=== PATIENT | female | born 1995 | race Caucasian/White ===

== ENCOUNTER 2016-10-06 16:43 | Emergency (ER) | payer MEDICAID, OTHER ==
[~2016-10-06 16:43] MED LIST: ALBU17IN INH; CARV3.12 PO; CARV6.25 PO; DIGO0.12 PO; DIGO0.25 PO; ENAL5TAB PO; FERR325T3 PO; HYDR100T PO; ISOS1TAB13 PO; LASI20TA PO; POTA10CA PO; PROT1TAB2 PO; SPIR25TA2 PO; VITMTA PO; ZOFR20TA PO
[2016-10-06 17:41] LABS: INR 1.02
--- NOTE | 2016-10-06 17:48 | REP ---
Chest two views HISTORY: Shortness of breath Comparison: 12/16/2015 The lungs are clear. The heart is normal in size. The pulmonary vasculature is normal in appearance. The bony structure is intact. The the patient is status post sternotomy IMPRESSION: No acute disease. Signed by Rick Garcia MD 10/06/2016 05:40 P
[2016-10-06 17:49] LABS: ANION GAP 8 MEQ/L (8-16); BLOOD UREA NITROGEN 32 MG/DL (7-18); CALCIUM LEVEL 9.2 MG/DL (8.5-10.1); CARBON DIOXIDE LEVEL 25 MEQ/L (21-32); CHLORIDE LEVEL 111 MEQ/L (98-107); CREATININE FOR GFR 1.15 MG/DL (0.55-1.02); GLUCOSE, FASTING 114 MG/DL (70-105); POTASSIUM SERUM 3.6 MEQ/L (3.5-5.1); SODIUM LEVEL 144 MEQ/L (136-145)
[2016-10-06 18:10] LABS: BASO % 0.3 % (0.0-1.0); EOS # 0.1 K/mm3 (0.0-0.50); LARGE UNSTAINED CELL % 1.3 % (0.0-4.0); LYMPH # 0.7 K/mm3 (1.5-6.5); LYMPH % 23.1 % (24.0-44.0); MEAN CORPUSCULAR HGB CONC 32.5 g/dl (32.0-36.5); MEAN CORPUSCULAR VOLUME 89.3 fl (80.0-96.0); MONO # 0.2 K/mm3 (0.0-0.8); MONO % 6.3 % (0.0-5.0); NEUTROPHILS # 1.9 K/mm3 (1.8-7.7); NEUTROPHILS % 67.1 % (36.0-66.0); PLATELET COUNT, AUTOMATED 227 k/mm3 (150-450); RED CELL DISTRIBUTION WIDTH 16.5 % (11.5-14.5); WHITE BLOOD COUNT 2.8 K/mm3 (4.0-10.0)
--- NOTE | 2016-10-06 18:25 | ECGEPIP ---
Stationary ECG Study [facility] - ED Test Date: 2016-10-06 Pat Name: MAKAYLA ESTRADA Department: Room: - Gender: F Project Asst: andre : 1995 Requested By: KADE PEDERSEN Order Number: [id number] Reading MD: Lukasz Chaudhari Measurements Intervals Burden Rate: 108 P: 67 NM: 111 QRS: 19 QRSD: 86 T: 58 QT: 331 QTc: 445 Interpretive Statements SINUS TACHYCARDIA WITH SHORT NM INTERVAL Electronically Signed On 10-06-2016 18:25:17 EST by Lukasz Chaudhari
--- NOTE | 2016-10-06 18:26 | EDDOCDS ---
Nurse's Notes [facility] Name: Jessa Bran Age: 21 yrs Sex: Female : 1995 Arrival Date: 10/06/2016 Time: 16:43 Bed 4 Private MD: Rick Aguilar W Diagnosis: Acute bronchitis Presentation: 10/06 16:49 Presenting complaint: Patient states: Chest pain and SOB began at 0700 this am. Aspirin mlb1 was not taken prior to arrival. Adult Sepsis Screening: The patient does not have new or worsening altered mentation. Patient's respiratory rate is less than 22. Systolic blood pressure is greater than 100. Patient has a qSOFA score of 0- Negative Sepsis Screen. Suicide/Homicide risk assessment- the patient denies having any suicidal and/or homicidal ideations and does not present with any other emotional, behavioral or mental health complaints. Status: Patient is not a data services developer or dependent. Transition of care: patient was not received from another setting of care. 16:49 Acuity: GAURANG Level 2 mlb1 16:49 Method Of Arrival: Walkin/Carried/Asstd mlb1 Triage Assessment: 16:55 General: Appears in no apparent distress, Behavior is cooperative. Pain: Location: mlb1 mid-sternal area Pain currently is 7 out of 10 on a pain scale. Pt Declines HIV testing. PROTECTION OFFICER: 16:56 LMP N/A - control method mlb1 Historical: - Allergies: no known allergies; - Home Meds: 1. Zofran (as hydrochloride) 4 mg Oral tab four times a day 2. mycophenolate mofetil 250 mg oral cap 1 caps 2 times per day 3. tacrolimus 1 mg oral cap 4 cap every 12 hours 4. valganciclovir 450 mg oral tab 1 tabs once daily 5. prednisone 5 mg Oral tab 1 tab 2 times per day 6. Zantac 75 mg Oral 2 times per day 7. magnesium oxide 400 mg oral tab as needed 8. ferrous sulfate 325 mg (65 mg iron) Oral TbEC twice a day - PMHx: Anemia; Cardiomyopathy; congestive heart failure; GERD; machado parkinson white disease; - PSHx: ICD placement; Heart Transplant; - Social history: Smoking status: Patient states was never smoker of tobacco. No barriers to communication noted, The patient speaks fluent Maori, Speaks appropriately for age. - Family history: Not pertinent. - : The pt / caregiver states he / she is not on anticoagulants. Home medication list is obtained from the patient. - Exposure Risk Screening:: None identified. Screenin:21 Screening information is obtained from the patient. Fall risk: No risks identified. jo3 Assistance ADL's: requires no assistance with activities of daily living. Abuse/DV Screen: The patient / caregiver reports he/she is: not in a situation that causes fear, pain or injury. Nutritional screening: No deficits noted. Advance Directives: There is no active DNR order. home support is adequate. Assessment: 17:15 General: Appears in no apparent distress, comfortable, Behavior is appropriate for age, jo3 cooperative, pleasant. Neurological: Level of Consciousness is awake, alert, Oriented to person, place, time. Cardiovascular: Rhythm is sinus rhythm No ectopy. Chest pain burning sensation to mid chest upon coughing . Respiratory: Airway is patent Respiratory effort is even, unlabored, Breath sounds are clear bilaterally. Derm: Skin is pink, warm & dry. 18:20 General: Appears in no apparent distress, comfortable, Behavior is appropriate for age, jo3 cooperative, pleasant. Neurological: No deficits noted. Level of Consciousness is awake, alert, Oriented to person, place, time. Cardiovascular: Rhythm is sinus rhythm No ectopy. Respiratory: Airway is patent Respiratory effort is even, unlabored. Derm: Skin is pink, warm & dry. Vital Signs: 16:44 BP 123 / 74; Pulse 120; Resp 18 S; Temp 99.1(O); Pulse Ox 99% on R/A; Weight 44.45 kg gr2 (R); Height 5 ft. 2 in. (157.48 cm) (R); Pain 8/10; 17:11 BP 116 / 81 (auto/); jo3 17:11 Pulse 108 MON; Pulse Ox 98% ; jo3 17:26 BP 116 / 81 (auto/); jo3 17:26 Pulse 106 MON; Pulse Ox 98% ; jo3 17:41 BP 111 / 74 (auto/); jo3 17:41 Pulse 102 MON; Pulse Ox 98% ; jo3 17:56 BP 110 / 71 (auto/); jo3 17:56 Pulse 102 MON; Pulse Ox 98% ; jo3 18:11 BP 114 / 73 (auto/); jo3 18:11 Pulse 100 MON; Resp 18; Temp 99.5(O); Pulse Ox 98% ; jo3 16:44 Body Mass Index 17.92 (44.45 kg, 157.48 cm) gr2 Vitals: 16:44 Log In Time: October 06, 2016 at 16:44. RN notified that patient meets Red Flag gr2 criteria. ED Course: 16:44 Patient visited by Shikha Barrios. gr2 16:44 Rick Aguilar is Private Physician. gr2 16:44 Patient moved to Waiting gr2 16:47 Patient visited by Shikha Barrios. gr2 16:48 Patient moved to 4 mlb1 16:49 Triage Initiated mlb1 16:56 Patient visited by Carlos Manuel Hawkins RN. mlb1 17:00 sanitary aide on. Pulse ox on. NIBP on. jo3 17:00 Inserted saline lock: 18 gauge in right antecubital area. Labs drawn. (by ED staff). jo3 Sent per order to lab. 17:12 Gerard Richmond FNP is [facility]. ke 17:12 Patient visited by Gerard Richmond FNP. ke 17:12 Patient visited by Gerard Richmond FNP. ke 17:42 Patient visited by Gerard Richmond FNP. ke 17:42 [place] Payment Agreement was scanned into [employer] and attached to record. gb 17:52 EKG done. (by ED staff). lr2 17:59 Rick Aguilar is Referral Physician. ke 18:16 Chest, 2 View (pa\E\lat) Returned. EDMS 18:21 The patient / caregiver is instructed regarding the plan of care and ED course. jo3 18:22 No procedures done that require assistance. jo3 Order Results: Lab Order: B-Type Natiuretic Peptide; SPEC'M 10/06/16 17:08 Test: BRAIN NATRIURETIC PEPTIDE; Value: 12.8; Range: <100; Units: PG/ML; Status: F Lab Order: Basic Metabolic Profile; SPEC'M 10/06/16 17:08 Test: GLUCOSE, FASTING; Value: 114; Range: 70-105; Abnormal: Above high normal; Units: MG/DL; Status: F Test: BLOOD UREA NITROGEN; Value: 32; Range: 7-18; Abnormal: Above high normal; Units: MG/DL; Status: F Test: CREATININE FOR GFR; Value: 1.15; Range: 0.55-1.02; Abnormal: Above high normal; Units: MG/DL; Status: F Test: SODIUM LEVEL; Value: 144; Range: 136-145; Units: MEQ/L; Status: F Test: POTASSIUM SERUM; Value: 3.6; Range: 3.5-5.1; Units: MEQ/L; Status: F Test: CHLORIDE LEVEL; Value: 111; Range: 98-107; Abnormal: Above high normal; Units: MEQ/L; Status: F Test: CARBON DIOXIDE LEVEL; Value: 25; Range: 21-32; Units: MEQ/L; Status: F Test: ANION GAP; Value: 8; Range: 8-16; Units: MEQ/L; Status: F Test: CALCIUM LEVEL; Value: 9.2; Range: 8.5-10.1; Units: MG/DL; Status: F Lab Order: CBC with Diff; SPEC'M 10/06/16 17:08 Test: WHITE BLOOD COUNT; Value: 2.8; Range: 4.0-10.0; Abnormal: Below low normal; Units: K/mm3; Status: F Test: RED BLOOD COUNT; Value: 3.38; Range: 4.00-5.40; Abnormal: Below low normal; Units: M/mm3; Status: F Test: HEMOGLOBIN; Value: 9.8; Range: 12.0-16.0; Abnormal: Below low normal; Units: g/dl; Status: F Test: HEMATOCRIT; Value: 30.2; Range: 36.0-47.0; Abnormal: Below low normal; Units: %; Status: F Test: MEAN CORPUSCULAR VOLUME; Value: 89.3; Range: 80.0-96.0; Units: fl; Status: F Test: MEAN CORPUSCULAR HEMOGLOBIN; Value: 29.0; Range: 27.0-33.0; Units: pg; Status: F Test: MEAN CORPUSCULAR HGB CONC; Value: 32.5; Range: 32.0-36.5; Units: g/dl; Status: F Test: RED CELL DISTRIBUTION WIDTH; Value: 16.5; Range: 11.5-14.5; Abnormal: Above high normal; Units: %; Status: F Test: PLATELET COUNT, AUTOMATED; Value: 227; Range: 150-450; Units: k/mm3; Status: F Test: NEUTROPHILS %; Value: 67.1; Range: 36.0-66.0; Abnormal: Above high normal; Units: %; Status: F Test: LYMPH %; Value: 23.1; Range: 24.0-44.0; Abnormal: Below low normal; Units: %; Status: F Test: MONO %; Value: 6.3; Range: 0.0-5.0; Abnormal: Above high normal; Units: %; Status: F Test: EOS %; Value: 2.0; Range: 0.0-3.0; Units: %; Status: F Test: BASO %; Value: 0.3; Range: 0.0-1.0; Units: %; Status: F Test: LARGE UNSTAINED CELL %; Value: 1.3; Range: 0.0-4.0; Units: %; Status: F Test: NEUTROPHILS #; Value: 1.9; Range: 1.8-7.7; Units: K/mm3; Status: F Test: LYMPH #; Value: 0.7; Range: 1.5-6.5; Abnormal: Below low normal; Units: K/mm3; Status: F Test: MONO #; Value: 0.2; Range: 0.0-0.8; Units: K/mm3; Status: F Test: EOS #; Value: 0.1; Range: 0.0-0.50; Units: K/mm3; Status: F Test: BASO #; Value: 0.0; Range: 0.0-0.2; Units: K/mm3; Status: F Test: LARGE UNSTAINED CELL #; Value: 0.0; Range: 0.0-0.4; Units: K/mm3; Status: F Lab Order: Cardiac Injury Profile; SPEC'M 10/06/16 17:08 Test: CPK CREATINE PHOSPHOKINASE; Value: 29; Range: 26-192; Units: U/L; Status: F Test: CK-MB VALUE MASS; Value: 1.0; Range: 0.0-3.6; Units: NG/ML; Status: F Test: MB/CK RELATIVE INDEX; Value: 3.44; Range: < OR =4; Status: F Test Note: ; DIAGNOSIS CRITERIA MMB ng/ml Relative Index (RI) NON-AMI < or = 5 N/A HOU ZONE > 5 < or = 4 AMI > 5 > 4 Lab Order: Prothrombin Time Profile\E\INR; SPEC'M 10/06/16 17:08 Test: PROTHROMBIN TIME; Value: 13.5; Range: 12.3-14.5; Units: SECONDS; Status: F Test: INR; Value: 1.02; Status: F Test Note: ; THERAPUTIC HUMAN INR VALUES INDICATIONS NORMAL RANGES PROPHYLAXIS/TREATMENT OF: VENOUS THROMBOSIS 2.0-3.0 PULMONARY EMBOLISM 2.0-3.0 PREVENTION OF SYSTEMIC EMBOLISM FROM: TISSUE HEART VALVES 2.0-3.0 ACUTE MYOCARDIAL INFARCTION 2.0-3.0 VALVULAR HEART DISEASE 2.0-3.0 ATRIAL FIBRILLATION 2.0-3.0 MECHANICAL VALVES(HIGH RISK) 2.5-3.5 RECURRENT MYOCARDIAL INFARCTION 2.5-3.5 Lab Order: Troponin; SPEC'M 10/06/16 17:08 Test: TROPONIN I; Value: < 0.02; Range: < 0.10; Units: NG/ML; Status: F Test Note: ; Troponin I Reference Interval for [employer] LOCI: 99th Percentile= 0.00-0.045 ng/ml Risk Stratification: <= 0.10 ng/ml Decreased Risk for Adverse Clinical Events. 0.10-1.50 ng/ml Increased Risk for Adverse Clinical Events. Evaluation of additional criterion and/or repeat testing in 2-6 hours is suggested to rule out myocardial damage. >= 1.50 ng/ml Indicative of Myocardial Injury. Radiology Order: Chest, 2 View (pa\E\lat) Test: Chest, 2 View (pa\E\lat) REASON FOR EXAMINATION: Shortness of Breath; Chest two views; ; HISTORY: Shortness of breath; ; Comparison: 12/16/2015; ; The lungs are clear. The heart is normal in size. The pulmonary vasculature is; normal in appearance. The bony structure is intact. The the patient is status; post sternotomy; ; IMPRESSION: No acute disease.; ; ; Signed by; Rick Garcia MD 10/06/2016 05:40 P; Outcome: 18:00 Discharge ordered by Provider. vick 18:22 Discharge Assessment: Patient awake, alert and oriented x 3. No cognitive and/or jo3 functional deficits noted. Patient verbalized understanding of disposition instructions. patient administered narcotics - no. The following High Risk Discharge criteria are identified: None. Discharged to home ambulatory, with family. Condition: stable Condition: improved. Discharge instructions given to patient, Instructed on discharge instructions, follow up and referral plans. medication usage, Demonstrated understanding of instructions, medications, Pt was receptive of discharge instructions/ teaching. Prescriptions given X 2. No special radiology studies were completed. Property sent home with patient. 18:24 Patient left the ED. jo3 Signatures: Dispatcher [employer] EDMS Sharifa Wright, Reg Reg Gerard Jackson, DESIGN RELEASE ENGINEER DESIGN RELEASE ENGINEER Carlos Manuel Perez, RN RN mlb1 Linda Su RN RN jo3 Shikha Barrios gr2 Bella Feliciano lr2 LILIBETH
--- NOTE | 2016-10-06 18:26 | EDDOCDS ---
Physician Documentation [facility] Name: Jessa Bran Age: 21 yrs Sex: Female : 1995 Arrival Date: 10/06/2016 Time: 16:43 Bed 4 Private MD: Rick Aguilar W Disposition: 10/06/16 18:00 Discharged to Home/Self Care. Impression: Acute bronchitis. - Condition is Stable. - Discharge Instructions: Acute Bronchitis. - Prescriptions for cefdinir 300 mg Oral Capsule - take 1 capsule by ORAL route every 12 hours; 20 capsule. Albuterol Sulfate 90 mcg/actuation Inhalation HFA Aerosol Inhaler - inhale 2 puff by INHALATION route every 4 hours As needed; 1 Inhaler. - Medication Reconciliation, Local Pharmacy Hours form. - Follow up: Rick Aguilar; When: 4 - 5 days; Reason: Recheck today's complaints, Continuance of care. - Problem is an ongoing problem. - Symptoms are unchanged. Historical: - Allergies: no known allergies; - Home Meds: 1. Zofran (as hydrochloride) 4 mg Oral tab four times a day 2. mycophenolate mofetil 250 mg oral cap 1 caps 2 times per day 3. tacrolimus 1 mg oral cap 4 cap every 12 hours 4. valganciclovir 450 mg oral tab 1 tabs once daily 5. prednisone 5 mg Oral tab 1 tab 2 times per day 6. Zantac 75 mg Oral 2 times per day 7. magnesium oxide 400 mg oral tab as needed 8. ferrous sulfate 325 mg (65 mg iron) Oral TbEC twice a day - PMHx: Anemia; Cardiomyopathy; congestive heart failure; GERD; machado parkinson white disease; - PSHx: ICD placement; Heart Transplant; - Social history: Smoking status: Patient states was never smoker of tobacco. No barriers to communication noted, The patient speaks fluent Palauan, Speaks appropriately for age. - Family history: Not pertinent. - : The pt / caregiver states he / she is not on anticoagulants. Home medication list is obtained from the patient. - Exposure Risk Screening:: None identified. DIRECTOR COMPENSATION: 10/06 16:56 LMP N/A - control method mlb1 Vital Signs: 16:44 BP 123 / 74; Pulse 120; Resp 18 S; Temp 99.1(O); Pulse Ox 99% on R/A; Weight 44.45 kg / gr2 98 lbs (R); Height 5 ft. 2 in. (157.48 cm) (R); Pain 8/10; 17:11 BP 116 / 81 (auto/); jo3 17:11 Pulse 108 MON; Pulse Ox 98% ; jo3 17:26 BP 116 / 81 (auto/); jo3 17:26 Pulse 106 MON; Pulse Ox 98% ; jo3 17:41 BP 111 / 74 (auto/); jo3 17:41 Pulse 102 MON; Pulse Ox 98% ; jo3 17:56 BP 110 / 71 (auto/); jo3 17:56 Pulse 102 MON; Pulse Ox 98% ; jo3 18:11 BP 114 / 73 (auto/); jo3 18:11 Pulse 100 MON; Resp 18; Temp 99.5(O); Pulse Ox 98% ; jo3 16:44 Body Mass Index 17.92 (44.45 kg, 157.48 cm) gr2 MDM: 17:18 Drop Board Man/Pulse Ox/q 30 min VS ordered. ke 17:18 IV Saline Lock ordered. ke 17:18 Rhythm Strip to chart ordered. ke 17:18 Undress patient appropriately for examination ordered. ke 17:19 B-Type Natiuretic Peptide Ordered. EDMS 17:19 Basic Metabolic Profile Ordered. EDMS 17:19 CBC with Diff Ordered. EDMS 17:19 Cardiac Injury Profile Ordered. EDMS 17:19 Prothrombin Time Profile\E\INR Ordered. EDMS 17:19 Troponin Ordered. EDMS 17:19 Chest, 2 View (pa\E\lat) Ordered. EDMS 17:19 ECG WITH READING ER PHYS+CARDIAG ordered. EDMS 17:29 Financial registration complete. gb 17:42 [facility] Payment Agreement was scanned into [employer] and attached to record. gb 17:53 Basic Metabolic Profile Reviewed. ke 17:53 B-Type Natiuretic Peptide Reviewed. ke 17:53 Cardiac Injury Profile Reviewed. ke 17:53 Prothrombin Time Profile\E\INR Reviewed. ke 17:53 Troponin Reviewed. ke Signatures: Dispatcher [employer] EDMS Sharifa Wright, Reg Reg gb Gerard Richmond, BRASS CUTTER BRASS CUTTER Carlos Manuel Perez RN RN mlb1 Linda SuRN RN jo3 The chart was reviewed and I authenticate all verbal orders and agree with the evaluation and treatment provided.Attachments: 17:42 [facility] Payment Agreement gb MTDD
--- NOTE | 2016-10-08 19:25 | EDDOCDS ---
Physician Documentation [facility] Name: Jessa Bran Age: 21 yrs Sex: Female : 1995 Arrival Date: 10/06/2016 Time: 16:43 Bed 4 Private MD: Rick Aguilar W Disposition: 10/06/16 18:00 Discharged to Home/Self Care. Impression: Acute bronchitis. - Condition is Stable. - Discharge Instructions: Acute Bronchitis. - Prescriptions for cefdinir 300 mg Oral Capsule - take 1 capsule by ORAL route every 12 hours; 20 capsule. Albuterol Sulfate 90 mcg/actuation Inhalation HFA Aerosol Inhaler - inhale 2 puff by INHALATION route every 4 hours As needed; 1 Inhaler. - Medication Reconciliation, Local Pharmacy Hours form. - Follow up: Rick Aguilar; When: 4 - 5 days; Reason: Recheck today's complaints, Continuance of care. - Problem is an ongoing problem. - Symptoms are unchanged. Historical: - Allergies: no known allergies; - Home Meds: 1. Zofran (as hydrochloride) 4 mg Oral tab four times a day 2. mycophenolate mofetil 250 mg oral cap 1 caps 2 times per day 3. tacrolimus 1 mg oral cap 4 cap every 12 hours 4. valganciclovir 450 mg oral tab 1 tabs once daily 5. prednisone 5 mg Oral tab 1 tab 2 times per day 6. Zantac 75 mg Oral 2 times per day 7. magnesium oxide 400 mg oral tab as needed 8. ferrous sulfate 325 mg (65 mg iron) Oral TbEC twice a day - PMHx: Anemia; Cardiomyopathy; congestive heart failure; GERD; machado parkinson white disease; - PSHx: ICD placement; Heart Transplant; - Social history: Smoking status: Patient states was never smoker of tobacco. No barriers to communication noted, The patient speaks fluent Gibraltarian, Speaks appropriately for age. - Family history: Not pertinent. - : The pt / caregiver states he / she is not on anticoagulants. Home medication list is obtained from the patient. - Exposure Risk Screening:: None identified. TOOL CRIB CLERK: 10/06 16:56 LMP N/A - control method mlb1 Vital Signs: 16:44 BP 123 / 74; Pulse 120; Resp 18 S; Temp 99.1(O); Pulse Ox 99% on R/A; Weight 44.45 kg / gr2 98 lbs (R); Height 5 ft. 2 in. (157.48 cm) (R); Pain 8/10; 17:11 BP 116 / 81 (auto/); jo3 17:11 Pulse 108 MON; Pulse Ox 98% ; jo3 17:26 BP 116 / 81 (auto/); jo3 17:26 Pulse 106 MON; Pulse Ox 98% ; jo3 17:41 BP 111 / 74 (auto/); jo3 17:41 Pulse 102 MON; Pulse Ox 98% ; jo3 17:56 BP 110 / 71 (auto/); jo3 17:56 Pulse 102 MON; Pulse Ox 98% ; jo3 18:11 BP 114 / 73 (auto/); jo3 18:11 Pulse 100 MON; Resp 18; Temp 99.5(O); Pulse Ox 98% ; jo3 16:44 Body Mass Index 17.92 (44.45 kg, 157.48 cm) gr2 MDM: 17:18 Dental Hygiene Administrative Assistant/Pulse Ox/q 30 min VS ordered. ke 17:18 IV Saline Lock ordered. ke 17:18 Rhythm Strip to chart ordered. ke 17:18 Undress patient appropriately for examination ordered. ke 17:19 B-Type Natiuretic Peptide Ordered. EDMS 17:19 Basic Metabolic Profile Ordered. EDMS 17:19 CBC with Diff Ordered. EDMS 17:19 Cardiac Injury Profile Ordered. EDMS 17:19 Prothrombin Time Profile\E\INR Ordered. EDMS 17:19 Troponin Ordered. EDMS 17:19 Chest, 2 View (pa\E\lat) Ordered. EDMS 17:19 ECG WITH READING ER PHYS+CARDIAG ordered. EDMS 17:29 Financial registration complete. gb 17:42 [facility] Payment Agreement was scanned into [employer] and attached to record. gb 17:53 Basic Metabolic Profile Reviewed. ke 17:53 B-Type Natiuretic Peptide Reviewed. ke 17:53 Cardiac Injury Profile Reviewed. ke 17:53 Prothrombin Time Profile\E\INR Reviewed. ke 17:53 Troponin Reviewed. vick 10/07 12:12 T-Sheet-- Draft Copy was scanned into [employer] and attached to record. gb 12:12 ECG/EKG was scanned into [employer] and attached to record. gb Signatures: Dispatcher [employer] EDMS Sharifa Wright, Reg Reg gb Gerard Richmond, SPINNING AND WINDING SUPERVISOR SPINNING AND WINDING SUPERVISOR Carlos Manuel Perez RN RN mlb1 Linda SuRN RN jo3 The chart was reviewed and I authenticate all verbal orders and agree with the evaluation and treatment provided.Attachments: 10/06 17:42 [facility] Payment Agreement gb 10/07 12:12 T-Sheet-- Draft Copy gb 12:12 ECG/EKG gb Chart Complete MTDD
--- NOTE | 2016-10-08 19:25 | EDDOCDS ---
Nurse's Notes [facility] Name: Jessa Bran Age: 21 yrs Sex: Female : 1995 Arrival Date: 10/06/2016 Time: 16:43 Bed 4 Private MD: Rick Aguilar W Diagnosis: Acute bronchitis Presentation: 10/06 16:49 Presenting complaint: Patient states: Chest pain and SOB began at 0700 this am. Aspirin mlb1 was not taken prior to arrival. Adult Sepsis Screening: The patient does not have new or worsening altered mentation. Patient's respiratory rate is less than 22. Systolic blood pressure is greater than 100. Patient has a qSOFA score of 0- Negative Sepsis Screen. Suicide/Homicide risk assessment- the patient denies having any suicidal and/or homicidal ideations and does not present with any other emotional, behavioral or mental health complaints. Status: Patient is not a center customer service associate or dependent. Transition of care: patient was not received from another setting of care. 16:49 Acuity: GAURANG Level 2 mlb1 16:49 Method Of Arrival: Walkin/Carried/Asstd mlb1 Triage Assessment: 16:55 General: Appears in no apparent distress, Behavior is cooperative. Pain: Location: mlb1 mid-sternal area Pain currently is 7 out of 10 on a pain scale. Pt Declines HIV testing. 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 Zofran (as hydrochloride) 4 mg Oral tab four times a day 2. mycophenolate mofetil 250 mg oral cap 1 caps 2 times per day 3. tacrolimus 1 mg oral cap 4 cap every 12 hours 4. valganciclovir 450 mg oral tab 1 tabs once daily 5. prednisone 5 mg Oral tab 1 tab 2 times per day 6. Zantac 75 mg Oral 2 times per day 7. magnesium oxide 400 mg oral tab as needed 8. ferrous sulfate 325 mg (65 mg iron) Oral TbEC twice a day - PMHx: Anemia; Cardiomyopathy; congestive heart failure; GERD; machado parkinson white disease; - PSHx: ICD placement; Heart Transplant; - Social history: Smoking status: Patient states was never smoker of tobacco. No barriers to communication noted, The patient speaks fluent Estonian, Speaks appropriately for age. - Family history: Not pertinent. - : The pt / caregiver states he / she is not on anticoagulants. Home medication list is obtained from the patient. - Exposure Risk Screening:: None identified. Screenin:21 Screening information is obtained from the patient. Fall risk: No risks identified. jo3 Assistance ADL's: requires no assistance with activities of daily living. Abuse/DV Screen: The patient / caregiver reports he/she is: not in a situation that causes fear, pain or injury. Nutritional screening: No deficits noted. Advance Directives: There is no active DNR order. home support is adequate. Assessment: 17:15 General: Appears in no apparent distress, comfortable, Behavior is appropriate for age, jo3 cooperative, pleasant. Neurological: Level of Consciousness is awake, alert, Oriented to person, place, time. Cardiovascular: Rhythm is sinus rhythm No ectopy. Chest pain burning sensation to mid chest upon coughing . Respiratory: Airway is patent Respiratory effort is even, unlabored, Breath sounds are clear bilaterally. Derm: Skin is pink, warm & dry. 18:20 General: Appears in no apparent distress, comfortable, Behavior is appropriate for age, jo3 cooperative, pleasant. Neurological: No deficits noted. Level of Consciousness is awake, alert, Oriented to person, place, time. Cardiovascular: Rhythm is sinus rhythm No ectopy. Respiratory: Airway is patent Respiratory effort is even, unlabored. Derm: Skin is pink, warm & dry. Vital Signs: 16:44 BP 123 / 74; Pulse 120; Resp 18 S; Temp 99.1(O); Pulse Ox 99% on R/A; Weight 44.45 kg gr2 (R); Height 5 ft. 2 in. (157.48 cm) (R); Pain 8/10; 17:11 BP 116 / 81 (auto/); jo3 17:11 Pulse 108 MON; Pulse Ox 98% ; jo3 17:26 BP 116 / 81 (auto/); jo3 17:26 Pulse 106 MON; Pulse Ox 98% ; jo3 17:41 BP 111 / 74 (auto/); jo3 17:41 Pulse 102 MON; Pulse Ox 98% ; jo3 17:56 BP 110 / 71 (auto/); jo3 17:56 Pulse 102 MON; Pulse Ox 98% ; jo3 18:11 BP 114 / 73 (auto/); jo3 18:11 Pulse 100 MON; Resp 18; Temp 99.5(O); Pulse Ox 98% ; jo3 16:44 Body Mass Index 17.92 (44.45 kg, 157.48 cm) gr2 Vitals: 16:44 Log In Time: October 06, 2016 at 16:44. RN notified that patient meets Red Flag gr2 criteria. ED Course: 16:44 Patient visited by Shikha Barrios. gr2 16:44 Rick Aguilar is Private Physician. gr2 16:44 Patient moved to Waiting gr2 16:47 Patient visited by Shikha Barrios. gr2 16:48 Patient moved to 4 mlb1 16:49 Triage Initiated mlb1 16:56 Patient visited by Carlos Manuel Hawkins RN. mlb1 17:00 perennial house manager on. Pulse ox on. NIBP on. jo3 17:00 Inserted saline lock: 18 gauge in right antecubital area. Labs drawn. (by ED staff). jo3 Sent per order to lab. 17:12 [facility] ke 17:12 Patient visited by Gerard Richmond FNP. ke 17:12 Patient visited by Gerard Richmond FNP. ke 17:42 Patient visited by Gerard Richmond FNP. ke 17:42 [facility] Payment Agreement was scanned into [employer] and attached to record. gb 17:52 EKG done. (by ED staff). lr2 17:59 Rick Aguilar is Referral Physician. ke 18:16 Chest, 2 View (pa\E\lat) Returned. EDMS 18:21 The patient / caregiver is instructed regarding the plan of care and ED course. jo3 18:22 No procedures done that require assistance. jo3 19:02 EKG-ADULT Returned. EDMS 10/07 12:12 T-Sheet-- Draft Copy was scanned into [employer] and attached to record. gb 12:12 ECG/EKG was scanned into [employer] and attached to record. gb Order Results: Lab Order: B-Type Natiuretic Peptide; SPEC'M 10/06/16 17:08 Test: BRAIN NATRIURETIC PEPTIDE; Value: 12.8; Range: <100; Units: PG/ML; Status: F Lab Order: Basic Metabolic Profile; SPEC'M 10/06/16 17:08 Test: GLUCOSE, FASTING; Value: 114; Range: 70-105; Abnormal: Above high normal; Units: MG/DL; Status: F Test: BLOOD UREA NITROGEN; Value: 32; Range: 7-18; Abnormal: Above high normal; Units: MG/DL; Status: F Test: CREATININE FOR GFR; Value: 1.15; Range: 0.55-1.02; Abnormal: Above high normal; Units: MG/DL; Status: F Test: SODIUM LEVEL; Value: 144; Range: 136-145; Units: MEQ/L; Status: F Test: POTASSIUM SERUM; Value: 3.6; Range: 3.5-5.1; Units: MEQ/L; Status: F Test: CHLORIDE LEVEL; Value: 111; Range: 98-107; Abnormal: Above high normal; Units: MEQ/L; Status: F Test: CARBON DIOXIDE LEVEL; Value: 25; Range: 21-32; Units: MEQ/L; Status: F Test: ANION GAP; Value: 8; Range: 8-16; Units: MEQ/L; Status: F Test: CALCIUM LEVEL; Value: 9.2; Range: 8.5-10.1; Units: MG/DL; Status: F Lab Order: CBC with Diff; SPEC'M 10/06/16 17:08 Test: WHITE BLOOD COUNT; Value: 2.8; Range: 4.0-10.0; Abnormal: Below low normal; Units: K/mm3; Status: F Test: RED BLOOD COUNT; Value: 3.38; Range: 4.00-5.40; Abnormal: Below low normal; Units: M/mm3; Status: F Test: HEMOGLOBIN; Value: 9.8; Range: 12.0-16.0; Abnormal: Below low normal; Units: g/dl; Status: F Test: HEMATOCRIT; Value: 30.2; Range: 36.0-47.0; Abnormal: Below low normal; Units: %; Status: F Test: MEAN CORPUSCULAR VOLUME; Value: 89.3; Range: 80.0-96.0; Units: fl; Status: F Test: MEAN CORPUSCULAR HEMOGLOBIN; Value: 29.0; Range: 27.0-33.0; Units: pg; Status: F Test: MEAN CORPUSCULAR HGB CONC; Value: 32.5; Range: 32.0-36.5; Units: g/dl; Status: F Test: RED CELL DISTRIBUTION WIDTH; Value: 16.5; Range: 11.5-14.5; Abnormal: Above high normal; Units: %; Status: F Test: PLATELET COUNT, AUTOMATED; Value: 227; Range: 150-450; Units: k/mm3; Status: F Test: NEUTROPHILS %; Value: 67.1; Range: 36.0-66.0; Abnormal: Above high normal; Units: %; Status: F Test: LYMPH %; Value: 23.1; Range: 24.0-44.0; Abnormal: Below low normal; Units: %; Status: F Test: MONO %; Value: 6.3; Range: 0.0-5.0; Abnormal: Above high normal; Units: %; Status: F Test: EOS %; Value: 2.0; Range: 0.0-3.0; Units: %; Status: F Test: BASO %; Value: 0.3; Range: 0.0-1.0; Units: %; Status: F Test: LARGE UNSTAINED CELL %; Value: 1.3; Range: 0.0-4.0; Units: %; Status: F Test: NEUTROPHILS #; Value: 1.9; Range: 1.8-7.7; Units: K/mm3; Status: F Test: LYMPH #; Value: 0.7; Range: 1.5-6.5; Abnormal: Below low normal; Units: K/mm3; Status: F Test: MONO #; Value: 0.2; Range: 0.0-0.8; Units: K/mm3; Status: F Test: EOS #; Value: 0.1; Range: 0.0-0.50; Units: K/mm3; Status: F Test: BASO #; Value: 0.0; Range: 0.0-0.2; Units: K/mm3; Status: F Test: LARGE UNSTAINED CELL #; Value: 0.0; Range: 0.0-0.4; Units: K/mm3; Status: F Lab Order: Cardiac Injury Profile; SPEC'M 10/06/16 17:08 Test: CPK CREATINE PHOSPHOKINASE; Value: 29; Range: 26-192; Units: U/L; Status: F Test: CK-MB VALUE MASS; Value: 1.0; Range: 0.0-3.6; Units: NG/ML; Status: F Test: MB/CK RELATIVE INDEX; Value: 3.44; Range: < OR =4; Status: F Test Note: ; DIAGNOSIS CRITERIA MMB ng/ml Relative Index (RI) NON-AMI < or = 5 N/A HOU ZONE > 5 < or = 4 AMI > 5 > 4 Lab Order: Prothrombin Time Profile\E\INR; SPEC'M 10/06/16 17:08 Test: PROTHROMBIN TIME; Value: 13.5; Range: 12.3-14.5; Units: SECONDS; Status: F Test: INR; Value: 1.02; Status: F Test Note: ; THERAPUTIC HUMAN INR VALUES INDICATIONS NORMAL RANGES PROPHYLAXIS/TREATMENT OF: VENOUS THROMBOSIS 2.0-3.0 PULMONARY EMBOLISM 2.0-3.0 PREVENTION OF SYSTEMIC EMBOLISM FROM: TISSUE HEART VALVES 2.0-3.0 ACUTE MYOCARDIAL INFARCTION 2.0-3.0 VALVULAR HEART DISEASE 2.0-3.0 ATRIAL FIBRILLATION 2.0-3.0 MECHANICAL VALVES(HIGH RISK) 2.5-3.5 RECURRENT MYOCARDIAL INFARCTION 2.5-3.5 Lab Order: Troponin; SPEC'M 10/06/16 17:08 Test: TROPONIN I; Value: < 0.02; Range: < 0.10; Units: NG/ML; Status: F Test Note: ; Troponin I Reference Interval for [email or web address] LOCI: 99th Percentile= 0.00-0.045 ng/ml Risk Stratification: <= 0.10 ng/ml Decreased Risk for Adverse Clinical Events. 0.10-1.50 ng/ml Increased Risk for Adverse Clinical Events. Evaluation of additional criterion and/or repeat testing in 2-6 hours is suggested to rule out myocardial damage. >= 1.50 ng/ml Indicative of Myocardial Injury. Radiology Order: Chest, 2 View (pa\E\lat) Test: Chest, 2 View (pa\E\lat) REASON FOR EXAMINATION: Shortness of Breath; Chest two views; ; HISTORY: Shortness of breath; ; Comparison: 12/16/2015; ; The lungs are clear. The heart is normal in size. The pulmonary vasculature is; normal in appearance. The bony structure is intact. The the patient is status; post sternotomy; ; IMPRESSION: No acute disease.; ; ; Signed by; Rick Garcia MD 10/06/2016 05:40 P; Radiology Order: EKG-ADULT Test: EKG-ADULT REASON FOR EXAMINATION: Chest Pain; Stationary ECG Study; [facility] - ED; ; Test Date: 2016-10-06; Pat Name: JESSA BRAN Department:; Room: -; Gender: F Mobile Paramedical Examiner: andre; : 1995 Requested By: GERARD PEDERSEN; Order Number: [id number] Reading MD: Lukasz Chaudhari; Measurements; Intervals Varney; Rate: 108 P: 67; NJ: 111 QRS: 19; QRSD: 86 T: 58; QT: 331; QTc: 445; Interpretive Statements; SINUS TACHYCARDIA WITH SHORT [place] INTERVAL; ; Electronically Signed On 10-06-2016 18:25:17 EST by Lukasz Chaudhari; Outcome: 10/06 18:00 Discharge ordered by Provider. ke 18:22 Discharge Assessment: Patient awake, alert and oriented x 3. No cognitive and/or jo3 functional deficits noted. Patient verbalized understanding of disposition instructions. patient administered narcotics - no. The following High Risk Discharge criteria are identified: None. Discharged to home ambulatory, with family. Condition: stable Condition: improved. Discharge instructions given to patient, Instructed on discharge instructions, follow up and referral plans. medication usage, Demonstrated understanding of instructions, medications, Pt was receptive of discharge instructions/ teaching. Prescriptions given X 2. No special radiology studies were completed. Property sent home with patient. 18:24 Patient left the ED. jo3 Signatures: Dispatcher [employer] EDMS Sharifa Wright, Reg Reg Gerard Jackson FNP FNP ke Barney, Michael B, RN RN mlb1 Linda Su RN RN jo3 Shikha Barrios2 Bella Feliciano2 Chart Complete MTDD
--- NOTE | 2016-10-08 19:25 | EDDOCDS ---
Physician Documentation [facility] Name: Jessa Bran Age: 21 yrs Sex: Female : 1995 Arrival Date: 10/06/2016 Time: 16:43 Bed 4 Private MD: Rick Aguilar W Disposition: 10/06/16 18:00 Discharged to Home/Self Care. Impression: Acute bronchitis. - Condition is Stable. - Discharge Instructions: Acute Bronchitis. - Prescriptions for cefdinir 300 mg Oral Capsule - take 1 capsule by ORAL route every 12 hours; 20 capsule. Albuterol Sulfate 90 mcg/actuation Inhalation HFA Aerosol Inhaler - inhale 2 puff by INHALATION route every 4 hours As needed; 1 Inhaler. - Medication Reconciliation, Local Pharmacy Hours form. - Follow up: Rick Aguilar; When: 4 - 5 days; Reason: Recheck today's complaints, Continuance of care. - Problem is an ongoing problem. - Symptoms are unchanged. Historical: - Allergies: no known allergies; - Home Meds: 1. Zofran (as hydrochloride) 4 mg Oral tab four times a day 2. mycophenolate mofetil 250 mg oral cap 1 caps 2 times per day 3. tacrolimus 1 mg oral cap 4 cap every 12 hours 4. valganciclovir 450 mg oral tab 1 tabs once daily 5. prednisone 5 mg Oral tab 1 tab 2 times per day 6. Zantac 75 mg Oral 2 times per day 7. magnesium oxide 400 mg oral tab as needed 8. ferrous sulfate 325 mg (65 mg iron) Oral TbEC twice a day - PMHx: Anemia; Cardiomyopathy; congestive heart failure; GERD; machado parkinson white disease; - PSHx: ICD placement; Heart Transplant; - Social history: Smoking status: Patient states was never smoker of tobacco. No barriers to communication noted, The patient speaks fluent Belarusian, Speaks appropriately for age. - Family history: Not pertinent. - : The pt / caregiver states he / she is not on anticoagulants. Home medication list is obtained from the patient. - Exposure Risk Screening:: None identified. COAT JOINER: 10/06 16:56 LMP N/A - control method mlb1 Vital Signs: 16:44 BP 123 / 74; Pulse 120; Resp 18 S; Temp 99.1(O); Pulse Ox 99% on R/A; Weight 44.45 kg / gr2 98 lbs (R); Height 5 ft. 2 in. (157.48 cm) (R); Pain 8/10; 17:11 BP 116 / 81 (auto/); jo3 17:11 Pulse 108 MON; Pulse Ox 98% ; jo3 17:26 BP 116 / 81 (auto/); jo3 17:26 Pulse 106 MON; Pulse Ox 98% ; jo3 17:41 BP 111 / 74 (auto/); jo3 17:41 Pulse 102 MON; Pulse Ox 98% ; jo3 17:56 BP 110 / 71 (auto/); jo3 17:56 Pulse 102 MON; Pulse Ox 98% ; jo3 18:11 BP 114 / 73 (auto/); jo3 18:11 Pulse 100 MON; Resp 18; Temp 99.5(O); Pulse Ox 98% ; jo3 16:44 Body Mass Index 17.92 (44.45 kg, 157.48 cm) gr2 MDM: 17:18 Certified Orthotic Fitter/Pulse Ox/q 30 min VS ordered. ke 17:18 IV Saline Lock ordered. ke 17:18 Rhythm Strip to chart ordered. ke 17:18 Undress patient appropriately for examination ordered. ke 17:19 B-Type Natiuretic Peptide Ordered. EDMS 17:19 Basic Metabolic Profile Ordered. EDMS 17:19 CBC with Diff Ordered. EDMS 17:19 Cardiac Injury Profile Ordered. EDMS 17:19 Prothrombin Time Profile\E\INR Ordered. EDMS 17:19 Troponin Ordered. EDMS 17:19 Chest, 2 View (pa\E\lat) Ordered. EDMS 17:19 ECG WITH READING ER PHYS+CARDIAG ordered. EDMS 17:29 Financial registration complete. gb 17:42 [facility] [place] Agreement was scanned into [employer] and attached to record. gb 17:53 Basic Metabolic Profile Reviewed. ke 17:53 B-Type Natiuretic Peptide Reviewed. ke 17:53 Cardiac Injury Profile Reviewed. ke 17:53 Prothrombin Time Profile\E\INR Reviewed. ke 17:53 Troponin Reviewed. vick 10/07 12:12 T-Sheet-- Draft Copy was scanned into [employer] and attached to record. gb 12:12 ECG/EKG was scanned into [employer] and attached to record. gb Signatures: Dispatcher [employer] EDMS Sharifa Wright, Reg Reg gb Gerard Richmond, PHILOSOPHY PROFESSOR PHILOSOPHY PROFESSOR Carlos Manuel Perez RN RN mlb1 Linda SuRN RN jo3 The chart was reviewed and I authenticate all verbal orders and agree with the evaluation and treatment provided.Attachments: 10/06 17:42 [facility] Payment Agreement gb 10/07 12:12 T-Sheet-- Draft Copy gb 12:12 ECG/EKG gb Chart Complete MTDD
== END 2016-10-06 18:24 | disposition home or self-care (01) ==
LOC: M ED 16:43
DX: J20.9 Acute bronchitis, unspecified (principal); D64.9 Anemia, unspecified; I50.9 Heart failure, unspecified; I42.9 Cardiomyopathy, unspecified; K21.9 Gastro-esophageal reflux disease without esophagitis; I45.6 Pre-excitation syndrome; Z79.899 Other long term (current) drug therapy

== ENCOUNTER 2016-10-07 19:16 | Emergency (ER) | payer OTHER ==
[2016-10-07 21:21] LABS: BASO % 0.2 % (0.0-1.0); EOS # 0.1 K/mm3 (0.0-0.50); EOS % 2.1 % (0.0-3.0); LARGE UNSTAINED CELL # 0.1 K/mm3 (0.0-0.4); LARGE UNSTAINED CELL % 1.3 % (0.0-4.0); LYMPH # 0.7 K/mm3 (1.5-6.5); MEAN CORPUSCULAR HEMOGLOBIN 28.7 pg (27.0-33.0); MEAN CORPUSCULAR HGB CONC 32.6 g/dl (32.0-36.5); MONO # 0.2 K/mm3 (0.0-0.8); MONO % 4.6 % (0.0-5.0); NEUTROPHILS # 2.9 K/mm3 (1.8-7.7); NEUTROPHILS % 75.8 % (36.0-66.0); PLATELET COUNT, AUTOMATED 224 k/mm3 (150-450); RED CELL DISTRIBUTION WIDTH 16.2 % (11.5-14.5); WHITE BLOOD COUNT 3.8 K/mm3 (4.0-10.0)
--- NOTE | 2016-10-08 00:58 | EDDOCDS ---
Physician Documentation [facility] Name: Jessa Bran Age: 21 yrs Sex: Female : 1995 Arrival Date: 10/07/2016 Time: 19:16 Bed 7 Private MD: Rick Aguilar W Disposition: 10/08/16 00:46 Discharged to Home/Self Care. Impression: Encounter for screening for infectious and parasitic diseases. - Condition is Stable. - Medication Reconciliation, Local Pharmacy Hours form. - Follow up: Private Physician; When: Call to arrange an appointment; Reason: Recheck today's complaints. - Problem is new. - Symptoms have improved. Historical: - Allergies: no known allergies; - Home Meds: 1. ferrous sulfate 325 mg (65 mg iron) Oral TbEC twice a day 2. magnesium oxide 400 mg Oral tab as needed 3. mycophenolate mofetil 250 mg oral cap 1 caps 2 times per day 4. prednisone 5 mg Oral tab 1 tab 2 times per day 5. tacrolimus 1 mg oral cap 4 cap every 12 hours 6. valganciclovir 450 mg oral tab 1 tabs once daily 7. Zantac 75 mg Oral 2 times per day 8. Zofran (as hydrochloride) 4 mg Oral tab four times a day 9. cefdinir 300 mg Oral cap 1 cap every 12 hours 10. albuterol sulfate 90 mcg/actuation inhalation HFAA every 6 hours - PMHx: Anemia; Cardiomyopathy; congestive heart failure; GERD; machado parkinson white disease; - PSHx: Heart Transplant; - Social history: Smoking status: Patient states was never smoker of tobacco. No barriers to communication noted, The patient speaks fluent Uzbek. - Family history: Not pertinent. - : The pt / caregiver states he / she is not on anticoagulants. Home medication list is obtained from the patient. - Exposure Risk Screening:: None identified. Vital Signs: 10/07 19:18 BP 133 / 82; Pulse 123; Resp 17; Temp 98.2(O); Pulse Ox 99% on R/A; Weight 44.45 kg / lr2 98 lbs (R); Height 5 ft. 2 in. (157.48 cm); Pain 5/10; 21:21 Temp 98.9(R); ms18 22:39 BP 106 / 66; Pulse 98; Resp 18; Pulse Ox 99% ; Pain 0/10; ms18 23:30 BP 115 / 62; Pulse 74; Resp 18; Pulse Ox 99% on R/A; Pain 0/10; tm5 10/08 00:55 BP 113 / 58; Pulse 74; Resp 18; Temp 98.3(O); Pulse Ox 99% on R/A; Pain 0/10; tm5 10/07 19:18 Body Mass Index 17.92 (44.45 kg, 157.48 cm) lr2 MDM: 10/07 19:54 Chest, 2 View (pa\E\lat) Ordered. EDMS 19:55 -Influenza A&B Rapid Antigen - Nose Ordered. EDMS 20:33 -Influenza A&B Rapid Antigen - Nose Reviewed. ke 20:49 Vital Signs ordered. cs11 20:49 -Blood Culture (Adults Only), peripheral from different site, or from device/port/PICC cs11 etc. if present ordered. 20:49 Misc Real Estate Accountant Order ordered. cs11 20:49 CBC with Diff Ordered. EDMS 20:49 -Blood Culture Ordered. EDMS 20:52 Misc Real Estate Accountant Order complete. jlm 20:53 RESPIRATORY PANEL Ordered. EDMS 20:53 -Blood Culture (Adults Only), peripheral from different site, or from device/port/PICC jlm etc. if present complete. 20:54 BLOOD CULTURES Ordered. EDMS 21:24 Financial registration complete. zo 21:44 CBC with Diff Reviewed. cs11 22:02 [facility] Payment Agreement was scanned into [employer] and attached to record. ks16 23:59 RESPIRATORY PANEL Reviewed. cs11 Signatures: Dispatcher [employer] EDMS Gerard Richmond, GLASS CUTTER HAND GLASS CUTTER HAND Maryana Coppola Rosemary,RN RN rs3 Cristopher Shoemaker, DO cs11 Sole Sierra, Information Technology Teacher Unit Mariluz Luciano RN RN ms18 Raven Govea, Reg Reg ks16 Ny Lezama,RN RN tm5 The chart was reviewed and I authenticate all verbal orders and agree with the evaluation and treatment provided.Attachments: 22:02 [facility] [place] Payment Agreement [email or web address] MTDD
--- NOTE | 2016-10-08 00:58 | EDDOCDS ---
Nurse's Notes [facility] Name: Jessa Bran Age: 21 yrs Sex: Female : 1995 Arrival Date: 10/07/2016 Time: 19:16 Bed 7 Private MD: Rick Aguilar W Diagnosis: Encounter for screening for infectious and parasitic diseases Presentation: 10/07 19:33 Presenting complaint: Presenting complaint: Patient states: was seen here for chest rs3 congestion yesterday. sent home with cefdinir and albuterol inhaler. had heart transplant in 2016 at [facility]. she called the transplant center. they asked her to go to ER to test for Flu. 19:35 Adult Sepsis Screening: The patient does not have new or worsening altered mentation. rs3 Patient's respiratory rate is less than 22. Systolic blood pressure is greater than 100. Patient has a qSOFA score of 0- Negative Sepsis Screen. Suicide/Homicide risk assessment- the patient denies having any suicidal and/or homicidal ideations and does not present with any other emotional, behavioral or mental health complaints. Status: Patient is not a car servicer or dependent. Transition of care: patient was not received from another setting of care. 19:35 Acuity: GAURANG Level 3 rs3 19:35 Method Of Arrival: Walkin/Carried/Asstd rs3 Triage Assessment: 19:44 General: Appears in no apparent distress. Pain: Location: chest. HIV screening NA for rs3 this visit Offered previously. Respiratory: Onset: The symptoms/episode began/occurred gradually. Historical: - Allergies: no known allergies; - Home Meds: 1. ferrous sulfate 325 mg (65 mg iron) Oral TbEC twice a day 2. magnesium oxide 400 mg Oral tab as needed 3. mycophenolate mofetil 250 mg oral cap 1 caps 2 times per day 4. prednisone 5 mg Oral tab 1 tab 2 times per day 5. tacrolimus 1 mg oral cap 4 cap every 12 hours 6. valganciclovir 450 mg oral tab 1 tabs once daily 7. Zantac 75 mg Oral 2 times per day 8. Zofran (as hydrochloride) 4 mg Oral tab four times a day 9. cefdinir 300 mg Oral cap 1 cap every 12 hours 10. albuterol sulfate 90 mcg/actuation inhalation HFAA every 6 hours - PMHx: Anemia; Cardiomyopathy; congestive heart failure; GERD; machado parkinson white disease; - PSHx: Heart Transplant; - Social history: Smoking status: Patient states was never smoker of tobacco. No barriers to communication noted, The patient speaks fluent Divehi. - Family history: Not pertinent. - : The pt / caregiver states he / she is not on anticoagulants. Home medication list is obtained from the patient. - Exposure Risk Screening:: None identified. Screenin:46 Screening information is obtained from the patient. Fall risk: No risks identified. ms18 Assistance ADL's: requires no assistance with activities of daily living. Abuse/DV Screen: The patient / caregiver reports he/she is: not in a situation that causes fear, pain or injury. Nutritional screening: No deficits noted. Advance Directives: There is no living will. home support is adequate. Assessment: 20:46 General: Appears in no apparent distress, comfortable, Behavior is appropriate for age, ms18 cooperative. Neurological: No deficits noted. Cardiovascular: Capillary refill < 3 seconds Rhythm is regular. Respiratory: Airway is patent Respiratory effort is even, unlabored. Derm: Skin is pink, warm & dry. normal. 21:58 General: Appears in no apparent distress, comfortable, Behavior is appropriate for age, ms18 cooperative, pleasant. General: PT taking her night time medications, Dr. Shoemaker aware of this. Pain: Denies pain. Neurological: No deficits noted. Cardiovascular: Capillary refill < 3 seconds Chest pain is denied. Respiratory: Airway is patent Respiratory effort is even, unlabored, Breath sounds are clear bilaterally. GI: Abdomen is flat, non- distended. 22:54 General: Appears in no apparent distress, comfortable, Behavior is appropriate for age, ms18 cooperative. General: Pt report given to Ny GONZALEZ. Pain: Denies pain. Neurological: No deficits noted. Respiratory: Airway is patent Respiratory effort is even, unlabored. Derm: Skin is pink, warm & dry. 23:15 Reassessment: Patient appears in no apparent distress at this time. Patient states tm5 feeling better. Patient states symptoms have improved. 10/08 00:55 Reassessment: Patient appears in no apparent distress at this time. Patient states tm5 feeling better. Patient states symptoms have improved. Vital Signs: 10/07 19:18 BP 133 / 82; Pulse 123; Resp 17; Temp 98.2(O); Pulse Ox 99% on R/A; Weight 44.45 kg lr2 (R); Height 5 ft. 2 in. (157.48 cm); Pain 5/10; 21:21 Temp 98.9(R); ms18 22:39 BP 106 / 66; Pulse 98; Resp 18; Pulse Ox 99% ; Pain 0/10; ms18 23:30 BP 115 / 62; Pulse 74; Resp 18; Pulse Ox 99% on R/A; Pain 0/10; tm5 10/08 00:55 BP 113 / 58; Pulse 74; Resp 18; Temp 98.3(O); Pulse Ox 99% on R/A; Pain 0/10; tm5 10/07 19:18 Body Mass Index 17.92 (44.45 kg, 157.48 cm) lr2 Vitals: 10/07 19:18 Log In Time: October 07, 2016 at 19:16. lr2 ED Course: 19:17 Patient visited by Bella Feliciano. lr2 19:17 Rick Aguilar is Private Physician. lr2 19:17 Patient moved to Waiting lr2 19:18 Patient moved to Pre RCE lr2 19:40 Triage Initiated rs3 19:47 Mariluz Lama RN is Primary Nurse. jo3 19:47 Patient moved to 7 jo3 19:49 Cristopher Shoemaker DO is Attending Physician. cs11 19:49 Patient visited by Cristopher Shoemaker DO. cs11 20:02 -Influenza A&B Rapid Antigen - Nose Sent. ms18 20:13 Patient visited by Mariluz Lama RN. ms18 20:46 Patient visited by Mariluz Lama RN. ms18 20:46 The patient / caregiver is instructed regarding the plan of care and ED course. ms18 Accompanied by Family Member, Patient has correct armband on for positive identification. Placed in gown. Bed in low position. Call light in reach. Property :Personal belongings accompany Pt. 20:54 RESPIRATORY PANEL Sent. ms18 21:14 Patient visited by Mariluz Lama RN. ms18 21:14 BLOOD CULTURES Sent. ms18 21:14 -Blood Culture Sent. ms18 21:14 CBC with Diff Sent. ms18 21:58 Inserted saline lock: 20 gauge in right antecubital area and blood collected. The ms18 patient tolerated the procedure well. 22:02 [facility] Payment Agreement was scanned into [employer] and attached to record. ks16 22:09 Patient visited by Mariluz Lama RN. ms18 22:39 Patient visited by Mariluz Lama RN. ms18 23:00 Report received from Mariluz GONZALEZ, assumed care of pt at this time. tm5 23:15 Patient visited by Ny Lezama RN. tm5 10/08 00:18 Patient visited by Ny Lezama RN. tm5 00:18 ED physician to see patient. tm5 00:18 Awaiting disposition. tm5 00:55 Patient visited by Ny Lezama RN. tm5 00:55 Discontinued lock intact, bleeding controlled, pressure dressing applied, No tm5 redness/swelling at site. No procedures done that require assistance. Order Results: Lab Order: -Influenza A&B Rapid Antigen - Nose; SPEC'M 10/07/16 20:00 Test: INFLUENZA A RAPID SCR by ICA; Value: INFLUENZA A RESULTS NEGATIVE; Status: F Test: INFLUENZA A RAPID SCR by ICA; Value: Comments:; Status: F Test: INFLUENZA B RAPID SCR by ICA; Value: INFLUENZA B RESULTS NEGATIVE; Status: F Test Note: ; The Influenza test is a direct rapid immunoassay for the qualitative detection of Influenza viral antigen. Cell culture (Viral Culture) testing should be considered to confirm NEGATIVE results and to assist in detecting other viruses that can provide similar clinical symptoms. Please contact the lab within 24 hours ([phone]) if confirmatory testing is desired. Lab Order: CBC with Diff; SPEC'M 10/07/16 21:12 Test: WHITE BLOOD COUNT; Value: 3.8; Range: 4.0-10.0; Abnormal: Below low normal; Units: K/mm3; Status: F Test: RED BLOOD COUNT; Value: 3.33; Range: 4.00-5.40; Abnormal: Below low normal; Units: M/mm3; Status: F Test: HEMOGLOBIN; Value: 9.6; Range: 12.0-16.0; Abnormal: Below low normal; Units: g/dl; Status: F Test: HEMATOCRIT; Value: 29.3; Range: 36.0-47.0; Abnormal: Below low normal; Units: %; Status: F Test: MEAN CORPUSCULAR VOLUME; Value: 88.0; Range: 80.0-96.0; Units: fl; Status: F Test: MEAN CORPUSCULAR HEMOGLOBIN; Value: 28.7; Range: 27.0-33.0; Units: pg; Status: F Test: MEAN CORPUSCULAR HGB CONC; Value: 32.6; Range: 32.0-36.5; Units: g/dl; Status: F Test: RED CELL DISTRIBUTION WIDTH; Value: 16.2; Range: 11.5-14.5; Abnormal: Above high normal; Units: %; Status: F Test: PLATELET COUNT, AUTOMATED; Value: 224; Range: 150-450; Units: k/mm3; Status: F Test: NEUTROPHILS %; Value: 75.8; Range: 36.0-66.0; Abnormal: Above high normal; Units: %; Status: F Test: LYMPH %; Value: 16.0; Range: 24.0-44.0; Abnormal: Below low normal; Units: %; Status: F Test: MONO %; Value: 4.6; Range: 0.0-5.0; Units: %; Status: F Test: EOS %; Value: 2.1; Range: 0.0-3.0; Units: %; Status: F Test: BASO %; Value: 0.2; Range: 0.0-1.0; Units: %; Status: F Test: LARGE UNSTAINED CELL %; Value: 1.3; Range: 0.0-4.0; Units: %; Status: F Test: NEUTROPHILS #; Value: 2.9; Range: 1.8-7.7; Units: K/mm3; Status: F Test: LYMPH #; Value: 0.7; Range: 1.5-6.5; Abnormal: Below low normal; Units: K/mm3; Status: F Test: MONO #; Value: 0.2; Range: 0.0-0.8; Units: K/mm3; Status: F Test: EOS #; Value: 0.1; Range: 0.0-0.50; Units: K/mm3; Status: F Test: BASO #; Value: 0.0; Range: 0.0-0.2; Units: K/mm3; Status: F Test: LARGE UNSTAINED CELL #; Value: 0.1; Range: 0.0-0.4; Units: K/mm3; Status: F Lab Order: RESPIRATORY PANEL; SPEC'M 10/07/16 21:12 Test: RESPIRATORY PANEL; Value: RP PANEL RESULT NEGATIVE by PCR; Status: F Test: RESPIRATORY PANEL; Value: Comments:; Status: F Test Note: ; This respiratory PCR panel detects Influenza A H1, H3 and 2009 H1 viruses, Influenza B virus, Respiratory syncytial virus, Human metapneumovirus, Parainfluenza virus 1, 2, 3 and 4, Adenovirus, Rhinovirus/Enterovirus, Coronavirus HKU1, NL63, OC43 and 229E, Bordetella pertussis, Mycoplasma pneumoniae and Chlamydia pneumoniae. Outcome: 00:46 Discharge ordered by Provider. cs11 00:55 Discharge Assessment: Patient awake, alert and oriented x 3. No cognitive and/or tm5 functional deficits noted. Patient verbalized understanding of disposition instructions. patient administered narcotics - no. The following High Risk Discharge criteria are identified: None. Discharged to home ambulatory, with parent. Condition: good Condition: stable Condition: improved. Discharge instructions given to patient, Instructed on discharge instructions, follow up and referral plans. Demonstrated understanding of instructions, Pt was receptive of discharge instructions/ teaching. No special radiology studies were completed. 00:57 Patient left the ED. tm5 Signatures: Linda SuRN RN qi3 Mala MccormickRN RN rs3 Cristopher Shoemaker DO DO cs11 Mariluz Lama RN RN ms18 Raven Govea, Reg Reg ks16 Ny Lezama RN RN tm5 Bella Feliciano lr2 Corrections: (The following items were deleted from the chart) 10/07 19:40 19:33 Presenting complaint: rs3 rs3 MTDD
--- NOTE | 2016-10-08 07:50 | REP ---
Clinical: Acute cough . Comparison: 10/06/2016 . Technique: PA and lateral. Findings: The mediastinum and cardiac silhouette are normal. The lung douglas are clear and without acute consolidation, effusion, or pneumothorax. The skeletal structures are intact and normal. Impression: 1. No acute cardiopulmonary process. Signed by Erick Wilson MD 10/08/2016 07:41 A
--- NOTE | 2016-10-10 01:58 | EDDOCDS ---
Nurse's Notes [facility] Name: Jessa Bran Age: 21 yrs Sex: Female : 1995 Arrival Date: 10/07/2016 Time: 19:16 Bed 7 Private MD: Rick Aguilar W Diagnosis: Encounter for screening for infectious and parasitic diseases Presentation: 10/07 19:33 Presenting complaint: Presenting complaint: Patient states: was seen here for chest rs3 congestion yesterday. sent home with cefdinir and albuterol inhaler. had heart transplant in 2016 at [facility]. she called the transplant center. they asked her to go to ER to test for Flu. 19:35 Adult Sepsis Screening: The patient does not have new or worsening altered mentation. rs3 Patient's respiratory rate is less than 22. Systolic blood pressure is greater than 100. Patient has a qSOFA score of 0- Negative Sepsis Screen. Suicide/Homicide risk assessment- the patient denies having any suicidal and/or homicidal ideations and does not present with any other emotional, behavioral or mental health complaints. Status: Patient is not a service delivery director or dependent. Transition of care: patient was not received from another setting of care. 19:35 Acuity: GAURANG Level 3 rs3 19:35 Method Of Arrival: Walkin/Carried/Asstd rs3 Triage Assessment: 19:44 General: Appears in no apparent distress. Pain: Location: chest. HIV screening NA for rs3 this visit Offered previously. Respiratory: Onset: The symptoms/episode began/occurred gradually. Historical: - Allergies: no known allergies; - Home Meds: 1. ferrous sulfate 325 mg (65 mg iron) Oral TbEC twice a day 2. magnesium oxide 400 mg Oral tab as needed 3. mycophenolate mofetil 250 mg oral cap 1 caps 2 times per day 4. prednisone 5 mg Oral tab 1 tab 2 times per day 5. tacrolimus 1 mg oral cap 4 cap every 12 hours 6. valganciclovir 450 mg oral tab 1 tabs once daily 7. Zantac 75 mg Oral 2 times per day 8. Zofran (as hydrochloride) 4 mg Oral tab four times a day 9. cefdinir 300 mg Oral cap 1 cap every 12 hours 10. albuterol sulfate 90 mcg/actuation inhalation HFAA every 6 hours - PMHx: Anemia; Cardiomyopathy; congestive heart failure; GERD; machado parkinson white disease; - PSHx: Heart Transplant; - Social history: Smoking status: Patient states was never smoker of tobacco. No barriers to communication noted, The patient speaks fluent Telugu. - Family history: Not pertinent. - : The pt / caregiver states he / she is not on anticoagulants. Home medication list is obtained from the patient. - Exposure Risk Screening:: None identified. Screenin:46 Screening information is obtained from the patient. Fall risk: No risks identified. ms18 Assistance ADL's: requires no assistance with activities of daily living. Abuse/DV Screen: The patient / caregiver reports he/she is: not in a situation that causes fear, pain or injury. Nutritional screening: No deficits noted. Advance Directives: There is no living will. home support is adequate. Assessment: 20:46 General: Appears in no apparent distress, comfortable, Behavior is appropriate for age, ms18 cooperative. Neurological: No deficits noted. Cardiovascular: Capillary refill < 3 seconds Rhythm is regular. Respiratory: Airway is patent Respiratory effort is even, unlabored. Derm: Skin is pink, warm & dry. normal. 21:58 General: Appears in no apparent distress, comfortable, Behavior is appropriate for age, ms18 cooperative, pleasant. General: PT taking her night time medications, Dr. Shoemaker aware of this. Pain: Denies pain. Neurological: No deficits noted. Cardiovascular: Capillary refill < 3 seconds Chest pain is denied. Respiratory: Airway is patent Respiratory effort is even, unlabored, Breath sounds are clear bilaterally. GI: Abdomen is flat, non- distended. 22:54 General: Appears in no apparent distress, comfortable, Behavior is appropriate for age, ms18 cooperative. General: Pt report given to Ny GONZALEZ. Pain: Denies pain. Neurological: No deficits noted. Respiratory: Airway is patent Respiratory effort is even, unlabored. Derm: Skin is pink, warm & dry. 23:15 Reassessment: Patient appears in no apparent distress at this time. Patient states tm5 feeling better. Patient states symptoms have improved. 10/08 00:55 Reassessment: Patient appears in no apparent distress at this time. Patient states tm5 feeling better. Patient states symptoms have improved. Vital Signs: 10/07 19:18 BP 133 / 82; Pulse 123; Resp 17; Temp 98.2(O); Pulse Ox 99% on R/A; Weight 44.45 kg lr2 (R); Height 5 ft. 2 in. (157.48 cm); Pain 5/10; 21:21 Temp 98.9(R); ms18 22:39 BP 106 / 66; Pulse 98; Resp 18; Pulse Ox 99% ; Pain 0/10; ms18 23:30 BP 115 / 62; Pulse 74; Resp 18; Pulse Ox 99% on R/A; Pain 0/10; tm5 10/08 00:55 BP 113 / 58; Pulse 74; Resp 18; Temp 98.3(O); Pulse Ox 99% on R/A; Pain 0/10; tm5 10/07 19:18 Body Mass Index 17.92 (44.45 kg, 157.48 cm) lr2 Vitals: 10/07 19:18 Log In Time: October 07, 2016 at 19:16. lr2 ED Course: 19:17 Patient visited by Bella Feliciano. lr2 19:17 Rick Aguilar is Private Physician. lr2 19:17 Patient moved to Waiting lr2 19:18 Patient moved to Pre RCE lr2 19:40 Triage Initiated rs3 19:47 Mariluz Lama RN is Primary Nurse. jo3 19:47 Patient moved to 7 jo3 19:49 Cristopher Shoemaker DO is Attending Physician. cs11 19:49 Patient visited by Cristopher Shoemaker DO. cs11 20:02 -Influenza A&B Rapid Antigen - Nose Sent. ms18 20:13 Patient visited by Mariluz Lama RN. ms18 20:46 Patient visited by Mariluz Lama RN. ms18 20:46 The patient / caregiver is instructed regarding the plan of care and ED course. ms18 Accompanied by Family Member, Patient has correct armband on for positive identification. Placed in gown. Bed in low position. Call light in reach. Property :Personal belongings accompany Pt. 20:54 RESPIRATORY PANEL Sent. ms18 21:14 Patient visited by Mariluz Lama RN. ms18 21:14 BLOOD CULTURES Sent. ms18 21:14 -Blood Culture Sent. ms18 21:14 CBC with Diff Sent. ms18 21:58 Inserted saline lock: 20 gauge in right antecubital area and blood collected. The ms18 patient tolerated the procedure well. 22:02 [facility] Payment Agreement was scanned into MarginLeft and attached to record. ks16 22:09 Patient visited by Mariluz Lama RN. ms18 22:39 Patient visited by Mariluz Lama RN. ms18 23:00 Report received from Mariluz GONZALEZ, assumed care of pt at this time. tm5 23:15 Patient visited by Ny Lezama RN. tm5 10/08 00:18 Patient visited by Ny Lezama RN. tm5 00:18 ED physician to see patient. tm5 00:18 Awaiting disposition. tm5 00:55 Patient visited by Ny Lezama RN. tm5 00:55 Discontinued lock intact, bleeding controlled, pressure dressing applied, No tm5 redness/swelling at site. No procedures done that require assistance. 08:16 Chest, 2 View (pa\E\lat) Returned. EDMS 11:51 T-Sheet-- Draft Copy was scanned into MarginLeft and attached to record. gb Order Results: Lab Order: -Influenza A&B Rapid Antigen - Nose; SPEC'M 10/07/16 20:00 Test: INFLUENZA A RAPID SCR by ICA; Value: INFLUENZA A RESULTS NEGATIVE; Status: F Test: INFLUENZA A RAPID SCR by ICA; Value: Comments:; Status: F Test: INFLUENZA B RAPID SCR by ICA; Value: INFLUENZA B RESULTS NEGATIVE; Status: F Test Note: ; The Influenza test is a direct rapid immunoassay for the qualitative detection of Influenza viral antigen. Cell culture (Viral Culture) testing should be considered to confirm NEGATIVE results and to assist in detecting other viruses that can provide similar clinical symptoms. Please contact the lab within 24 hours ([phone]) if confirmatory testing is desired. Lab Order: CBC with Diff; SPEC'M 10/07/16 21:12 Test: WHITE BLOOD COUNT; Value: 3.8; Range: 4.0-10.0; Abnormal: Below low normal; Units: K/mm3; Status: F Test: RED BLOOD COUNT; Value: 3.33; Range: 4.00-5.40; Abnormal: Below low normal; Units: M/mm3; Status: F Test: HEMOGLOBIN; Value: 9.6; Range: 12.0-16.0; Abnormal: Below low normal; Units: g/dl; Status: F Test: HEMATOCRIT; Value: 29.3; Range: 36.0-47.0; Abnormal: Below low normal; Units: %; Status: F Test: MEAN CORPUSCULAR VOLUME; Value: 88.0; Range: 80.0-96.0; Units: fl; Status: F Test: MEAN CORPUSCULAR HEMOGLOBIN; Value: 28.7; Range: 27.0-33.0; Units: pg; Status: F Test: MEAN CORPUSCULAR HGB CONC; Value: 32.6; Range: 32.0-36.5; Units: g/dl; Status: F Test: RED CELL DISTRIBUTION WIDTH; Value: 16.2; Range: 11.5-14.5; Abnormal: Above high normal; Units: %; Status: F Test: PLATELET COUNT, AUTOMATED; Value: 224; Range: 150-450; Units: k/mm3; Status: F Test: NEUTROPHILS %; Value: 75.8; Range: 36.0-66.0; Abnormal: Above high normal; Units: %; Status: F Test: LYMPH %; Value: 16.0; Range: 24.0-44.0; Abnormal: Below low normal; Units: %; Status: F Test: MONO %; Value: 4.6; Range: 0.0-5.0; Units: %; Status: F Test: EOS %; Value: 2.1; Range: 0.0-3.0; Units: %; Status: F Test: BASO %; Value: 0.2; Range: 0.0-1.0; Units: %; Status: F Test: LARGE UNSTAINED CELL %; Value: 1.3; Range: 0.0-4.0; Units: %; Status: F Test: NEUTROPHILS #; Value: 2.9; Range: 1.8-7.7; Units: K/mm3; Status: F Test: LYMPH #; Value: 0.7; Range: 1.5-6.5; Abnormal: Below low normal; Units: K/mm3; Status: F Test: MONO #; Value: 0.2; Range: 0.0-0.8; Units: K/mm3; Status: F Test: EOS #; Value: 0.1; Range: 0.0-0.50; Units: K/mm3; Status: F Test: BASO #; Value: 0.0; Range: 0.0-0.2; Units: K/mm3; Status: F Test: LARGE UNSTAINED CELL #; Value: 0.1; Range: 0.0-0.4; Units: K/mm3; Status: F Lab Order: -Blood Culture; SPEC'M 10/07/16 21:12 Test: BLOOD CULTURE; Value: No growth after 24 hours . All specimens observed; Status: F Test: BLOOD CULTURE; Value: for 5 days. Results final at that time.; Status: F Test: BLOOD CULTURE; Value: No Growth after 48 hours. All Specimens observed; Status: F Test: BLOOD CULTURE; Value: for 7 days. Results final at that time.; Status: F Lab Order: RESPIRATORY PANEL; SPEC'M 10/07/16 21:12 Test: RESPIRATORY PANEL; Value: RP PANEL RESULT NEGATIVE by PCR; Status: F Test: RESPIRATORY PANEL; Value: Comments:; Status: F Test Note: ; This respiratory PCR panel detects Influenza A H1, H3 and 2009 H1 viruses, Influenza B virus, Respiratory syncytial virus, Human metapneumovirus, Parainfluenza virus 1, 2, 3 and 4, Adenovirus, Rhinovirus/Enterovirus, Coronavirus HKU1, NL63, OC43 and 229E, Bordetella pertussis, Mycoplasma pneumoniae and Chlamydia pneumoniae. Lab Order: BLOOD CULTURES; SPEC'M 10/07/16 21:12 Test: BLOOD CULTURE; Value: No growth after 24 hours . All specimens observed; Status: F Test: BLOOD CULTURE; Value: for 5 days. Results final at that time.; Status: F Test: BLOOD CULTURE; Value: No Growth after 48 hours. All Specimens observed; Status: F Test: BLOOD CULTURE; Value: for 7 days. Results final at that time.; Status: F Radiology Order: Chest, 2 View (pa\E\lat) Test: Chest, 2 View (pa\E\lat) REASON FOR EXAMINATION: Cough; Clinical: Acute cough .; ; Comparison: 10/06/2016 .; ; Technique: PA and lateral.; ; Findings:; The mediastinum and cardiac silhouette are normal. The lung douglas are clear and; without acute consolidation, effusion, or pneumothorax. The skeletal structures; are intact and normal.; ; Impression:; 1. No acute cardiopulmonary process.; ; ; Signed by; Erick Wilson MD 10/08/2016 07:41 A; Outcome: 00:46 Discharge ordered by Provider. cs11 00:55 Discharge Assessment: Patient awake, alert and oriented x 3. No cognitive and/or tm5 functional deficits noted. Patient verbalized understanding of disposition instructions. patient administered narcotics - no. The following High Risk Discharge criteria are identified: None. Discharged to home ambulatory, with parent. Condition: good Condition: stable Condition: improved. Discharge instructions given to patient, Instructed on discharge instructions, follow up and referral plans. Demonstrated understanding of instructions, Pt was receptive of discharge instructions/ teaching. No special radiology studies were completed. 00:57 Patient left the ED. tm5 Signatures: Dispatcher MedHost EDMS Sharifa Wright, Reg Reg gb Linda SuRN RN jo3 Mala MccormickRN RN rs3 Cristopher Shoemaker, DO cs11 Mariluz Lama RN RN ms18 Raven Govea, Reg Reg ks16 Ny Lezama RN RN tm5 Bella Feliciano lr2 Corrections: (The following items were deleted from the chart) 10/07 19:40 19:33 Presenting complaint: rs3 rs3 Chart Complete MTDD
--- NOTE | 2016-10-10 01:58 | EDDOCDS ---
Physician Documentation [facility] Name: Jessa Bran Age: 21 yrs Sex: Female : 1995 Arrival Date: 10/07/2016 Time: 19:16 Bed 7 Private MD: Rick Aguilar W Disposition: 10/08/16 00:46 Discharged to Home/Self Care. Impression: Encounter for screening for infectious and parasitic diseases. - Condition is Stable. - Medication Reconciliation, Local Pharmacy Hours form. - Follow up: Private Physician; When: Call to arrange an appointment; Reason: Recheck today's complaints. - Problem is new. - Symptoms have improved. Historical: - Allergies: no known allergies; - Home Meds: 1. ferrous sulfate 325 mg (65 mg iron) Oral TbEC twice a day 2. magnesium oxide 400 mg Oral tab as needed 3. mycophenolate mofetil 250 mg oral cap 1 caps 2 times per day 4. prednisone 5 mg Oral tab 1 tab 2 times per day 5. tacrolimus 1 mg oral cap 4 cap every 12 hours 6. valganciclovir 450 mg oral tab 1 tabs once daily 7. Zantac 75 mg Oral 2 times per day 8. Zofran (as hydrochloride) 4 mg Oral tab four times a day 9. cefdinir 300 mg Oral cap 1 cap every 12 hours 10. albuterol sulfate 90 mcg/actuation inhalation HFAA every 6 hours - PMHx: Anemia; Cardiomyopathy; congestive heart failure; GERD; machado parkinson white disease; - PSHx: Heart Transplant; - Social history: Smoking status: Patient states was never smoker of tobacco. No barriers to communication noted, The patient speaks fluent Barbadian. - Family history: Not pertinent. - : The pt / caregiver states he / she is not on anticoagulants. Home medication list is obtained from the patient. - Exposure Risk Screening:: None identified. Vital Signs: 10/07 19:18 BP 133 / 82; Pulse 123; Resp 17; Temp 98.2(O); Pulse Ox 99% on R/A; Weight 44.45 kg / lr2 98 lbs (R); Height 5 ft. 2 in. (157.48 cm); Pain 5/10; 21:21 Temp 98.9(R); ms18 22:39 BP 106 / 66; Pulse 98; Resp 18; Pulse Ox 99% ; Pain 0/10; ms18 23:30 BP 115 / 62; Pulse 74; Resp 18; Pulse Ox 99% on R/A; Pain 0/10; tm5 10/08 00:55 BP 113 / 58; Pulse 74; Resp 18; Temp 98.3(O); Pulse Ox 99% on R/A; Pain 0/10; tm5 10/07 19:18 Body Mass Index 17.92 (44.45 kg, 157.48 cm) lr2 MDM: 10/07 19:54 Chest, 2 View (pa\E\lat) Ordered. EDMS 19:55 -Influenza A&B Rapid Antigen - Nose Ordered. EDMS 20:33 -Influenza A&B Rapid Antigen - Nose Reviewed. ke 20:49 Vital Signs ordered. cs11 20:49 -Blood Culture (Adults Only), peripheral from different site, or from device/port/PICC cs11 etc. if present ordered. 20:49 Misc Front End Web Designer Order ordered. cs11 20:49 CBC with Diff Ordered. EDMS 20:49 -Blood Culture Ordered. EDMS 20:52 Misc Front End Web Designer Order complete. jlm 20:53 RESPIRATORY PANEL Ordered. EDMS 20:53 -Blood Culture (Adults Only), peripheral from different site, or from device/port/PICC jlm etc. if present complete. 20:54 BLOOD CULTURES Ordered. EDMS 21:24 Financial registration complete. zo 21:44 CBC with Diff Reviewed. cs11 22:02 [facility] Payment Agreement was scanned into [employer] and attached to record. ks16 23:59 RESPIRATORY PANEL Reviewed. cs11 10/08 11:51 T-Sheet-- Draft Copy was scanned into Nexway and attached to record. gb Signatures: Dispatcher MedHost EDMS Sharifa Wright, Reg Reg gb Gerard Richmond, SOUND TECHNICIAN SOUND TECHNICIAN Maryana Coppola Rosemary,RN RN rs3 Cristopher Shoemaker, DO cs11 Sole Sierra, Chief Unit Forester Unit jlm Mariluz Lama RN RN ms18 Raven Govea, Reg Reg ks16 Ny Lezama,RN RN tm5 The chart was reviewed and I authenticate all verbal orders and agree with the evaluation and treatment provided.Attachments: 10/07 22:02 [facility] Payment Agreement ks16 10/08 11:51 T-Sheet-- Draft Copy gb Chart Complete MTDD
--- NOTE | 2016-10-10 01:58 | EDDOCDS ---
Physician Documentation [facility] Name: Jessa Bran Age: 21 yrs Sex: Female : 1995 Arrival Date: 10/07/2016 Time: 19:16 Bed 7 Private MD: Rick Aguilar W Disposition: 10/08/16 00:46 Discharged to Home/Self Care. Impression: Encounter for screening for infectious and parasitic diseases. - Condition is Stable. - Medication Reconciliation, Local Pharmacy Hours form. - Follow up: Private Physician; When: Call to arrange an appointment; Reason: Recheck today's complaints. - Problem is new. - Symptoms have improved. Historical: - Allergies: no known allergies; - Home Meds: 1. ferrous sulfate 325 mg (65 mg iron) Oral TbEC twice a day 2. magnesium oxide 400 mg Oral tab as needed 3. mycophenolate mofetil 250 mg oral cap 1 caps 2 times per day 4. prednisone 5 mg Oral tab 1 tab 2 times per day 5. tacrolimus 1 mg oral cap 4 cap every 12 hours 6. valganciclovir 450 mg oral tab 1 tabs once daily 7. Zantac 75 mg Oral 2 times per day 8. Zofran (as hydrochloride) 4 mg Oral tab four times a day 9. cefdinir 300 mg Oral cap 1 cap every 12 hours 10. albuterol sulfate 90 mcg/actuation inhalation HFAA every 6 hours - PMHx: Anemia; Cardiomyopathy; congestive heart failure; GERD; machado parkinson white disease; - PSHx: Heart Transplant; - Social history: Smoking status: Patient states was never smoker of tobacco. No barriers to communication noted, The patient speaks fluent Anguillan. - Family history: Not pertinent. - : The pt / caregiver states he / she is not on anticoagulants. Home medication list is obtained from the patient. - Exposure Risk Screening:: None identified. Vital Signs: 10/07 19:18 BP 133 / 82; Pulse 123; Resp 17; Temp 98.2(O); Pulse Ox 99% on R/A; Weight 44.45 kg / lr2 98 lbs (R); Height 5 ft. 2 in. (157.48 cm); Pain 5/10; 21:21 Temp 98.9(R); ms18 22:39 BP 106 / 66; Pulse 98; Resp 18; Pulse Ox 99% ; Pain 0/10; ms18 23:30 BP 115 / 62; Pulse 74; Resp 18; Pulse Ox 99% on R/A; Pain 0/10; tm5 10/08 00:55 BP 113 / 58; Pulse 74; Resp 18; Temp 98.3(O); Pulse Ox 99% on R/A; Pain 0/10; tm5 10/07 19:18 Body Mass Index 17.92 (44.45 kg, 157.48 cm) lr2 MDM: 10/07 19:54 Chest, 2 View (pa\E\lat) Ordered. EDMS 19:55 -Influenza A&B Rapid Antigen - Nose Ordered. EDMS 20:33 -Influenza A&B Rapid Antigen - Nose Reviewed. ke 20:49 Vital Signs ordered. cs11 20:49 -Blood Culture (Adults Only), peripheral from different site, or from device/port/PICC cs11 etc. if present ordered. 20:49 Misc Business Change Manager Order ordered. cs11 20:49 CBC with Diff Ordered. EDMS 20:49 -Blood Culture Ordered. EDMS 20:52 Misc Business Change Manager Order complete. jlm 20:53 RESPIRATORY PANEL Ordered. EDMS 20:53 -Blood Culture (Adults Only), peripheral from different site, or from device/port/PICC jlm etc. if present complete. 20:54 BLOOD CULTURES Ordered. EDMS 21:24 Financial registration complete. zo 21:44 CBC with Diff Reviewed. cs11 22:02 [facility] Payment Agreement was scanned into [employer] and attached to record. ks16 23:59 RESPIRATORY PANEL Reviewed. cs11 10/08 11:51 T-Sheet-- Draft Copy was scanned into LightSquared and attached to record. gb Signatures: Dispatcher MedHost EDMS Sharifa Wright, Reg Reg gb Gerard Richmond, IRON POURER IRON POURER Maryana Coppola Rosemary,RN RN rs3 Cristopher Shoemaker, DO cs11 Sole Sierra, Cat Swamper Unit jlm Mariluz Lama RN RN ms18 Raven Govea, Reg Reg ks16 Ny Lezama,RN RN tm5 The chart was reviewed and I authenticate all verbal orders and agree with the evaluation and treatment provided.Attachments: 10/07 22:02 [facility] [place] Agreement ks16 10/08 11:51 T-Sheet-- Draft Copy gb Chart Complete MTDD
== END 2016-10-08 00:57 | disposition home or self-care (01) ==
LOC: M ED 19:16
DX: Z11.9 Encounter for screening for infectious and parasitic diseases, unspecified (principal); D64.9 Anemia, unspecified; I42.9 Cardiomyopathy, unspecified; I50.20 Unspecified systolic (congestive) heart failure; K21.9 Gastro-esophageal reflux disease without esophagitis; I45.6 Pre-excitation syndrome; Z94.1 Heart transplant status; Z79.52 Long term (current) use of systemic steroids; Z79.899 Other long term (current) drug therapy

== ENCOUNTER 2016-10-26 15:56 | Emergency (ER) | payer MEDICAID, OTHER ==
[~2016-10-26] VITALS: Ht 157.5 cm; Wt 44.5 kg
[2016-10-26] MEDS ORDERED: PRED25TA PO (16:18)
[2016-10-26] MEDS ORDERED: ZANTTAB9 PO (16:18)
[2016-10-26] MEDS ORDERED: CELL250C PO (16:18)
[2016-10-26] MEDS ORDERED: TACR1CAP3 PO (16:18)
[2016-10-26] MEDS ORDERED: VALA500T PO (16:18)
[2016-10-26 17:28] LABS: ABG BASE EXCESS -3.1 (-2.0-2.0); ABG HCO3 20.1 MEQ/L (22.0-26.0); ABG PARTIAL PRESSURE CO2 29.6 mmHg (35.0-45.0); ABG PARTIAL PRESSURE O2 104.3 mmHg (75.0-100.0); ABG STANDARD HCO3 21.9 MEQ/L (22.0-26.0); ABG pH (ARTERIAL) 7.449 UNITS (7.350-7.450)
[2016-10-26] MEDS ORDERED: ACETAMINOPH W/CODEINE #3 TAB UD PO ONE (18:00)
[2016-10-26 18:02] LABS: BASO % 0.4 % (0.0-1.0); EOS # 0.1 K/mm3 (0.0-0.50); EOS % 2.1 % (0.0-3.0); LARGE UNSTAINED CELL # 0.1 K/mm3 (0.0-0.4); LARGE UNSTAINED CELL % 1.3 % (0.0-4.0); LYMPH # 0.8 K/mm3 (1.5-6.5); LYMPH % 16.8 % (24.0-44.0); MEAN CORPUSCULAR HEMOGLOBIN 29.4 pg (27.0-33.0); MEAN CORPUSCULAR HGB CONC 33.3 g/dl (32.0-36.5); MEAN CORPUSCULAR VOLUME 88.3 fl (80.0-96.0); MONO # 0.2 K/mm3 (0.0-0.8); MONO % 5.7 % (0.0-5.0); NEUTROPHILS # 3.1 K/mm3 (1.8-7.7); NEUTROPHILS % 73.6 % (36.0-66.0); PLATELET COUNT, AUTOMATED 219 k/mm3 (150-450); RED CELL DISTRIBUTION WIDTH 14.6 % (11.5-14.5); WHITE BLOOD COUNT 4.2 K/mm3 (4.0-10.0)
[2016-10-26 18:10] LABS: INR 1.01
[2016-10-26 18:25] VITALS: BP 111/85
[2016-10-26 18:29] LABS: ANION GAP 9 MEQ/L (8-16); BLOOD UREA NITROGEN 35 MG/DL (7-18); CALCIUM LEVEL 9.3 MG/DL (8.5-10.1); CARBON DIOXIDE LEVEL 24 MEQ/L (21-32); CHLORIDE LEVEL 109 MEQ/L (98-107); CREATININE FOR GFR 1.08 MG/DL (0.55-1.02); GLUCOSE, FASTING 91 MG/DL (70-105); POTASSIUM SERUM 3.9 MEQ/L (3.5-5.1); SODIUM LEVEL 142 MEQ/L (136-145)
--- NOTE | 2016-10-26 19:36 | REP ---
CHEST, TWO VIEWS: COMPARISON: 10/07/2016 There is no evidence of acute infiltrate. No pleural effusion is seen. The heart is normal in size. The mediastinal silhouette is unremarkable. The visualized osseous structures are intact. There are multiple sternal wires. IMPRESSION: No acute pulmonary disease. Signed by Jer Martinez MD 10/26/2016 08:12 P
--- NOTE | 2016-10-27 11:05 | ECGEPIP ---
Stationary ECG Study [facility] - ED Test Date: 2016-10-26 Pat Name: MAKAYLA ESTRADA Department: Room: - Gender: F [employer] Collection Clerk: PHILLIP : 1995 Requested By: Stephenie Wood Order Number: [id number] Reading MD: Stephenie Wood Measurements Intervals [place] Rate: 107 P: 46 SC: 112 QRS: 11 QRSD: 83 T: 43 QT: 325 QTc: 434 Interpretive Statements SINUS TACHYCARDIA WITH SHORT SC INTERVAL ABNORMAL RHYTHM ECG SIMILAR 10/06/16 Electronically Signed On 10-27-2016 11:05:01 EST by Stephenie Wood
== END 2016-10-26 21:01 | disposition home or self-care (01) ==
LOC: M ED 17:58
DX: R07.89 Other chest pain (principal)

== ENCOUNTER → 2016-11-08 | Outpatient (REF) | payer OTHER ==
[~2016-11-08] MED LIST changes: +CELL250C PO; +PRED25TA PO; +TACR1CAP3 PO; +VALA500T PO; +ZANTTAB9 PO
[2016-11-09 12:11] LABS: HIV SCRN NEGATIVE (NEGATIVE)
[2016-11-09 12:12] LABS: CONTROL LINE INT CTR LINE PRESENT; HIV SCRN1 NEGATIVE (NEGATIVE)
== END ==
LOC: M SFHCCLAY 16:31
PROVIDERS: ATTEND Family Medicine
DX: Z72.51 High risk heterosexual behavior (principal)

== ENCOUNTER → 2016-11-09 | Outpatient (CLI) | payer MEDICAID, OTHER ==
--- NOTE | 2016-11-09 14:27 | REP ---
RIGHT ANKLE, FOUR VIEWS: HISTORY: Pain. There is no acute fracture or dislocation. The joint space is normal in appearance. IMPRESSION: There is no acute fracture or dislocation. Signed by Rick Garcia MD 11/09/2016 02:52 P
== END ==
LOC: M RAD 13:53
PROVIDERS: ATTEND Family Medicine
DX: M25.571 Pain in right ankle and joints of right foot (principal)

== ENCOUNTER 2017-07-11 10:48 | Day surgery (SDC) | payer OTHER ==
[~2017-07-11] VITALS: Ht 157.5 cm; Wt 47.6 kg
[~2017-07-11 10:48] MED LIST changes: +PRED1TABL PO; +TACR0.5C3 PO; -VALA500T PO; +VALA500T2 PO
[2017-07-11] MEDS ORDERED: NS 1,000 ML IV ONE (11:00)
[2017-07-11] MEDS ORDERED: LIDOCAINE 2% INJ 100 MG/5 ML SDV (FOR ANES.) As Ordered ONE (12:41)
[2017-07-11] MEDS ORDERED: PROPOFOL 500 MG/50 ML VIAL As Ordered ONE (12:42)
--- NOTE | 2017-07-11 12:42 | ROOR ---
Patient Name: Jessa Bran Procedure Date: 07/11/2017 12:26 PM Date of : 1995 Age: 22 Room: [facility] Gender: Female Note Status: Finalized Procedure: Upper GI endoscopy Indications: Familial Adenomatous Polyposis Providers: Marco De La Torre MD Referring MD: FRANCESCO BRITTON DO Requesting Provider: Medicines: Monitored Anesthesia Care Complications: No immediate complications. Procedure: Pre-Anesthesia Assessment: - The heart rate, respiratory rate, oxygen saturations, blood pressure, adequacy of pulmonary ventilation, and response to care were monitored throughout the procedure. The Endoscope was introduced through the mouth, and advanced to the second part of duodenum. The upper GI endoscopy was accomplished without difficulty. The patient tolerated the procedure well. Findings: The Z-line was regular and was found 38 cm from the incisors. The exam was otherwise without abnormality. No other significant abnormalities were identified in a careful examination of the stomach. The exam of the duodenum was otherwise normal. Impression: - Z-line regular, 38 cm from the incisors. - The examination was otherwise normal. - No specimens collected. - The examination was otherwise normal. Recommendation: - Patient has a contact number available for emergencies. The signs and symptoms of potential delayed complications were discussed with the patient. Return to normal activities tomorrow. Written discharge instructions were provided to the patient. - High fiber diet. - Discharge patient to home. - Continue present medications. - Repeat upper endoscopy in 2 years for screening purposes. - The findings and recommendations were discussed with the patient's family. Marco De La Torre MD Marco De La Torre MD 07/11/2017 12:41:34 PM This report has been signed electronically. Number of Addenda: 0 Note Initiated On: 07/11/2017 12:26 PM Estimated Blood Loss: Estimated blood loss: none.
--- NOTE | 2017-07-11 13:22 | ROOR ---
Patient Name: Jessa Bran Procedure Date: 07/11/2017 12:27 PM Date of : 1995 Age: 22 Room: [facility] Gender: Female Note Status: Finalized Procedure: Total Colonoscopy to Cecum + Cold, and Hot Snare Polypectomy + Hemoclips Indications: Personal history of familial adenomatous polyposis, Family history of familial adenomatous polyposis in a first-degree relative Providers: Marco De La Torre MD Referring MD: FRANCESCO BRITTON DO Requesting Provider: Medicines: Monitored Anesthesia Care Complications: No immediate complications. Procedure: Pre-Anesthesia Assessment: - The heart rate, respiratory rate, oxygen saturations, blood pressure, adequacy of pulmonary ventilation, and response to care were monitored throughout the procedure. The Colonoscope was introduced through the anus and advanced to the cecum, identified by appendiceal orifice and ileocecal valve. The colonoscopy was performed without difficulty. The patient tolerated the procedure well. The quality of the bowel preparation was excellent. Findings: The perianal and digital rectal examinations were normal. Non-bleeding internal hemorrhoids were found during retroflexion. The hemorrhoids were small and Grade I (internal hemorrhoids that do not prolapse). Multiple sessile polyps were found at 30 cm proximal to the anus. The polyps were small in size. These polyps were removed with a cold snare. Resection and retrieval were complete. Two semi-pedunculated polyps were found at 40 cm proximal to the anus. The polyps were medium in size. These polyps were removed with a hot snare. Resection and retrieval were complete. To prevent bleeding after the polypectomy, two hemostatic clips were successfully placed (MR conditional). There was no bleeding at the end of the procedure. Multiple sessile polyps were found in the ascending colon. The polyps were small in size. These polyps were removed with a cold snare. Resection and retrieval were complete. To prevent bleeding after the polypectomy, one hemostatic clip was successfully placed (MR conditional). There was no bleeding at the end of the procedure. Multiple sessile polyps were found in the transverse colon. The polyps were small in size. These polyps were removed with a cold snare. Resection and retrieval were complete. Multiple sessile polyps were found in the rectum. The polyps were small in size. These polyps were removed with a cold snare. Resection and retrieval were complete. The exam was otherwise without abnormality on direct and retroflexion views. Impression: - Non-bleeding internal hemorrhoids. - Multiple small polyps at 30 cm proximal to the anus, removed with a cold snare. Resected and retrieved. - Two medium polyps at 40 cm proximal to the anus, removed with a hot snare. Resected and retrieved. Clips (MR conditional) were placed. - Multiple small polyps in the ascending colon, removed with a cold snare. Resected and retrieved. Clip (MR conditional) was placed. - Multiple small polyps in the transverse colon, removed with a cold snare. Resected and retrieved. - Multiple small polyps in the rectum, removed with a cold snare. Resected and retrieved. - The examination was otherwise normal on direct and retroflexion views. - The exam was otherwise normal to the cecum. Recommendation: - Patient has a contact number available for emergencies. The signs and symptoms of potential delayed complications were discussed with the patient. Return to normal activities tomorrow. Written discharge instructions were provided to the patient. - High fiber diet. - Discharge patient to home. - Continue present medications. - Await pathology results. - Telephone GI clinic for pathology results in 1 week. - Repeat colonoscopy in 1 year for surveillance based on pathology results. - Return to referring physician. - The findings and recommendations were discussed with the patient's family. Marco De La Torre MD Marco De La Torre MD 07/11/2017 1:22:00 PM This report has been signed electronically. Number of Addenda: 0 Note Initiated On: 07/11/2017 12:27 PM Estimated Blood Loss: Estimated blood loss: none.
[2017-07-13 07:51] VITALS: BP 118/70
== END 2017-07-11 14:18 | disposition home or self-care (01) ==
LOC: M OPP 10:48
PROVIDERS: ATTEND Internal Medicine Gastroenterology
DX: Z15.09 Genetic susceptibility to other malignant neoplasm (principal); D12.6 Benign neoplasm of colon, unspecified; Z80.0 Family history of malignant neoplasm of digestive organs; Z86.010 Personal history of colon polyps; D12.5 Benign neoplasm of sigmoid colon; D12.2 Benign neoplasm of ascending colon; D12.3 Benign neoplasm of transverse colon; K62.1 Rectal polyp; Z83.71 Family history of colonic polyps; K64.0 First degree hemorrhoids; D64.9 Anemia, unspecified; I48.91 Unspecified atrial fibrillation; I50.9 Heart failure, unspecified; I25.10 Atherosclerotic heart disease of native coronary artery without angina pectoris; Z94.1 Heart transplant status; Z95.810 Presence of automatic (implantable) cardiac defibrillator; Z88.8 Allergy status to other drugs, medicaments and biological substances; Z88.5 Allergy status to narcotic agent; Z79.52 Long term (current) use of systemic steroids; Z79.899 Other long term (current) drug therapy

== ENCOUNTER 2017-08-16 17:50 | Emergency (ER) | payer OTHER, MEDICAID ==
[2017-08-16 18:34] LABS: BASO % 0.4 % (0.0-1.0); EOS # 0.1 10^3/uL (0.0-0.50); EOS % 1.8 % (0.0-3.0); IMMATURE GRANULOCYTE % 0.2 % (0-0); LYMPH # 1.3 10^3/uL (1.5-6.5); LYMPH % 25.5 % (24.0-44.0); MEAN CORPUSCULAR HEMOGLOBIN 29.7 pg (27.0-33.0); MEAN CORPUSCULAR HGB CONC 34.6 g/dl (32.0-36.5); MONO # 0.3 10^3/uL (0.0-0.8); MONO % 6.7 % (0.0-5.0); NEUTROPHILS # 3.3 10^3/uL (1.8-7.7); NEUTROPHILS % 65.4 % (36.0-66.0); PLATELET COUNT, AUTOMATED 228 10^3/uL (150-450); RED CELL DISTRIBUTION WIDTH 12.6 % (11.5-14.5); WHITE BLOOD COUNT 5.1 10^3/uL (4.0-10.0)
[2017-08-16 19:01] LABS: ANION GAP 6 MEQ/L (8-16); BLOOD UREA NITROGEN 29 MG/DL (7-18); CARBON DIOXIDE LEVEL 27 MEQ/L (21-32); CHLORIDE LEVEL 109 MEQ/L (98-107); CREATININE FOR GFR 1.04 MG/DL (0.55-1.02); GLOMERULAR FILTRATION RATE > 60.0 (>60); GLUCOSE, FASTING 90 MG/DL (70-105); POTASSIUM SERUM 3.6 MEQ/L (3.5-5.1); SODIUM LEVEL 142 MEQ/L (136-145)
[2017-08-16] MEDS: NS 1,000 ML IV (19:36)
== END 2017-08-16 20:33 | disposition home or self-care (01) ==
LOC: M ED 17:50
DX: R07.89 Other chest pain (principal); R42 Dizziness and giddiness; I25.10 Atherosclerotic heart disease of native coronary artery without angina pectoris; Z79.899 Other long term (current) drug therapy; Z88.5 Allergy status to narcotic agent; Z88.8 Allergy status to other drugs, medicaments and biological substances
CPT/HCPCS: 71010

== ENCOUNTER 2018-03-24 10:27 | Emergency (ER) | payer OTHER, MEDICAID ==
[2018-03-24 11:11] LABS: BASO % 0.4 % (0.0-1.0); EOS # 0.1 10^3/uL (0.0-0.50); EOS % 0.9 % (0.0-3.0); HEMATOCRIT 31.8 % (36.0-47.0); HEMOGLOBIN 10.5 g/dl (12.0-15.5); IMMATURE GRANULOCYTE % 0.4 % (0-3.0); LYMPH # 0.9 10^3/uL (1.5-6.5); LYMPH % 16.7 % (24.0-44.0); MEAN CORPUSCULAR HEMOGLOBIN 28.2 pg (27.0-33.0); MEAN CORPUSCULAR VOLUME 85.3 fl (80.0-96.0); MONO # 0.5 10^3/uL (0.0-0.8); MONO % 8.4 % (0.0-5.0); NEUTROPHILS # 4.1 10^3/uL (1.8-7.7); NEUTROPHILS % 73.2 % (36.0-66.0); PLATELET COUNT, AUTOMATED 196 10^3/uL (150-450); RED BLOOD COUNT 3.73 10^6/uL (4.00-5.40); RED CELL DISTRIBUTION WIDTH 12.6 % (11.5-14.5); WHITE BLOOD COUNT 5.6 10^3/uL (4.0-10.0)
[2018-03-24 11:23] LABS: INR 0.95; PROTHROMBIN TIME 12.8 SECONDS (12.1-14.4)
[2018-03-24 11:24] LABS: PARTIAL THROMBOPLASTIN TIME 26.5 SECONDS (25.4-37.6)
[2018-03-24 11:34] LABS: ANION GAP 10 MEQ/L (8-16); BLOOD UREA NITROGEN 11 MG/DL (7-18); CALCIUM LEVEL 8.9 MG/DL (8.5-10.1); CARBON DIOXIDE LEVEL 25 MEQ/L (21-32); CHLORIDE LEVEL 108 MEQ/L (98-107); CK-MB VALUE MASS < 1.0 NG/ML (<3.6); CPK CREATINE PHOSPHOKINASE 38 U/L (26-192); CREATININE FOR GFR 0.67 MG/DL (0.55-1.30); GLOMERULAR FILTRATION RATE > 60.0 (>60); GLUCOSE, FASTING 105 MG/DL (70-100); MB/CK RELATIVE INDEX 2.63 (< OR =4); POTASSIUM SERUM 3.6 MEQ/L (3.5-5.1); SODIUM LEVEL 143 MEQ/L (136-145); TROPONIN I < 0.02 NG/ML (< 0.10)
[2018-03-24 14:53] LABS: KETONE, URINE AUTO RFX NEGATIVE (NEGATIVE); LEUKOCYTE ESTERASE UR AUTO RFX 2+ (NEGATIVE); MUCUS, URINE RFX SMALL (NEGATIVE); NITRITE, URINE AUTO RFX NEGATIVE (NEGATIVE); RBC, URINE AUTO RFX 2 /HPF (0-3); SPECIFIC GRAVITY UR AUTO RFX 1.019 (1.002-1.035); SQUAM EPITHELIAL CELL UR AURFX 3 /HPF (0-6); WBC, URINE AUTO RFX 6 /HPF (0-3)
[2018-03-27 00:06] LABS: FK 506 (TACROLIMUS) LABCORP 4.9 ng/mL (2.0-20.0)
== END 2018-03-24 15:09 | disposition home or self-care (01) ==
LOC: M ED 10:27
DX: N39.0 Urinary tract infection, site not specified (principal); R50.9 Fever, unspecified; I51.9 Heart disease, unspecified; Z88.8 Allergy status to other drugs, medicaments and biological substances; Z88.5 Allergy status to narcotic agent; Z88.1 Allergy status to other antibiotic agents; Z79.899 Other long term (current) drug therapy; Z94.1 Heart transplant status
CPT/HCPCS: 71046

== ENCOUNTER 2018-03-27 20:13 | Inpatient (IN) | payer MEDICAID, OTHER ==
[2018-03-27 20:38] LABS: HEMOGLOBIN 11.5 g/dl (12.0-15.5); MEAN CORPUSCULAR HEMOGLOBIN 28.8 pg (27.0-33.0); MEAN CORPUSCULAR HGB CONC 33.8 g/dl (32.0-36.5); MEAN CORPUSCULAR VOLUME 85.2 fl (80.0-96.0); PLATELET COUNT, AUTOMATED 233 10^3/uL (150-450); RED BLOOD COUNT 3.99 10^6/uL (4.00-5.40); RED CELL DISTRIBUTION WIDTH 12.4 % (11.5-14.5); WHITE BLOOD COUNT 9.3 10^3/uL (4.0-10.0)
[2018-03-27 20:54] LABS: CONTROL LINE HCG INT CTR LINE PRESENT; HCG, SERUM QUALITATIVE NEGATIVE (NEGATIVE)
[2018-03-27 21:09] LABS: ALBUMIN 3.6 GM/DL (3.2-5.2); ALKALINE PHOSPHATASE 63 U/L (45-117); ALT/SGPT 19 U/L (12-78); ANION GAP 9 MEQ/L (8-16); AST/SGOT 14 U/L (7-37); BILIRUBIN,DIRECT < 0.1 MG/DL (0.0-0.2); BILIRUBIN,TOTAL 0.2 MG/DL (0.2-1.0); BLOOD UREA NITROGEN 12 MG/DL (7-18); CALCIUM LEVEL 8.8 MG/DL (8.5-10.1); CARBON DIOXIDE LEVEL 23 MEQ/L (21-32); CHLORIDE LEVEL 109 MEQ/L (98-107); CREATININE FOR GFR 0.75 MG/DL (0.55-1.30); ETHYL ALCOHOL (ETHANOL) < 0.003 % (0.000-0.010); GLOMERULAR FILTRATION RATE > 60.0 (>60); GLUCOSE, FASTING 112 MG/DL (70-100); POTASSIUM SERUM 3.9 MEQ/L (3.5-5.1); SALICYLATE LEVEL < 1.7 MG/DL (5.0-30.0); SODIUM LEVEL 141 MEQ/L (136-145); TOTAL PROTEIN 7.6 GM/DL (6.4-8.2)
[2018-03-27 21:10] LABS: ACETAMINOPHEN LEVEL < 2.0 UG/ML (10.0-30.0); AMPHETAMINES LEVEL URINE NEGATIVE (NEGATIVE); BARBITURATES URINE NEGATIVE (NEGATIVE); BENZODIAZEPINES URINE NEGATIVE (NEGATIVE); CANNABINOIDS URINE NEGATIVE (NEGATIVE); COCAINE METABOLITE URINE NEGATIVE (NEGATIVE); METHADONE URINE NEGATIVE (NEGATIVE); OPIATES URINE NEGATIVE (NEGATIVE); PHENCYCLIDINE URINE NEGATIVE (NEGATIVE)
[2018-03-28] MEDS ORDERED: MOM 30ML SUSPENSION UDC PO
[2018-03-28] MEDS ORDERED: MAALOX 30 ML SUSP *UDC PO
[2018-03-28] MEDS: NITROFURANTOIN (MACROBID) 100 MG CAP PO ×2 (10:28→21:32)
[2018-03-28] MEDS: FERROUS SULFATE 325MG TAB PO (10:28)
[2018-03-28] MEDS: MYCOPHENOLATE MOFETIL 250 MG CAP (J7517) PO ×2 (10:28→21:32)
[2018-03-28] MEDS: MULTIVITAMINS/MINERALS THERAP 1 TAB PO (10:28)
[2018-03-28] MEDS: TACROLIMUS 1 MG CAP (J7507) PO ×2 (10:30→21:32)
[2018-03-28 10:52] LABS: KETONE, URINE AUTO RFX NEGATIVE (NEGATIVE); LEUKOCYTE ESTERASE UR AUTO RFX NEGATIVE (NEGATIVE); MUCUS, URINE RFX SMALL (NEGATIVE); NITRITE, URINE AUTO RFX NEGATIVE (NEGATIVE); RBC, URINE AUTO RFX 1 /HPF (0-3); SPECIFIC GRAVITY UR AUTO RFX 1.025 (1.002-1.035); SQUAM EPITHELIAL CELL UR AURFX 1 /HPF (0-6); WBC, URINE AUTO RFX 1 /HPF (0-3)
[2018-03-28] MEDS: ACETAMINOPHEN TAB 650MG DOSE (2X325MG) PO (16:03)
[2018-03-29] MEDS: MYCOPHENOLATE MOFETIL 250 MG CAP (J7517) PO ×2 (08:18→20:59)
[2018-03-29] MEDS: MULTIVITAMINS/MINERALS THERAP 1 TAB PO (08:18)
[2018-03-29] MEDS: FERROUS SULFATE 325MG TAB PO (08:18)
[2018-03-29] MEDS: TACROLIMUS 1 MG CAP (J7507) PO ×2 (08:18→20:59)
[2018-03-29] MEDS: ACETAMINOPHEN TAB 650MG DOSE (2X325MG) PO (08:19)
[2018-03-29] MEDS: NITROFURANTOIN (MACROBID) 100 MG CAP PO (08:22)
[2018-03-29 08:52] LABS: BASO % 0.2 % (0.0-1.0); EOS # 0.1 10^3/uL (0.0-0.50); EOS % 1.1 % (0.0-3.0); HEMATOCRIT 35.1 % (36.0-47.0); HEMOGLOBIN 11.5 g/dl (12.0-15.5); IMMATURE GRANULOCYTE % 0.2 % (0-3.0); LYMPH # 0.8 10^3/uL (1.5-6.5); LYMPH % 17.7 % (24.0-44.0); MEAN CORPUSCULAR HEMOGLOBIN 27.8 pg (27.0-33.0); MEAN CORPUSCULAR HGB CONC 32.8 g/dl (32.0-36.5); MEAN CORPUSCULAR VOLUME 84.8 fl (80.0-96.0); MONO # 0.3 10^3/uL (0.0-0.8); MONO % 6.3 % (0.0-5.0); NEUTROPHILS # 3.3 10^3/uL (1.8-7.7); NEUTROPHILS % 74.5 % (36.0-66.0); PLATELET COUNT, AUTOMATED 211 10^3/uL (150-450); RED BLOOD COUNT 4.14 10^6/uL (4.00-5.40); RED CELL DISTRIBUTION WIDTH 12.4 % (11.5-14.5); WHITE BLOOD COUNT 4.4 10^3/uL (4.0-10.0)
[2018-03-29 09:17] LABS: ALBUMIN 3.6 GM/DL (3.2-5.2); ALBUMIN/GLOBULIN RATIO 1.03 (1.00-1.93); ALKALINE PHOSPHATASE 63 U/L (45-117); ALT/SGPT 16 U/L (12-78); ANION GAP 10 MEQ/L (8-16); AST/SGOT 11 U/L (7-37); BILIRUBIN,TOTAL 0.3 MG/DL (0.2-1.0); BLOOD UREA NITROGEN 19 MG/DL (7-18); CARBON DIOXIDE LEVEL 24 MEQ/L (21-32); CHLORIDE LEVEL 106 MEQ/L (98-107); CREATININE FOR GFR 0.86 MG/DL (0.55-1.30); GLOMERULAR FILTRATION RATE > 60.0 (>60); GLUCOSE, FASTING 149 MG/DL (70-100); POTASSIUM SERUM 4.1 MEQ/L (3.5-5.1); SODIUM LEVEL 140 MEQ/L (136-145); TOTAL PROTEIN 7.1 GM/DL (6.4-8.2)
[2018-03-29 09:35] LABS: HEPATITIS B SURFACE ANTIGEN NEGATIVE (NEGATIVE)
[2018-03-29 10:03] LABS: HEPATITIS C VIRUS ABY INDEX 0.1 INDEX (<0.8)
[2018-03-29 10:04] LABS: HEPATITIS B CORE ANTIBODY IGM NEGATIVE (NEGATIVE)
[2018-03-29 10:05] LABS: HEPATITIS A ANTIBODY IGM NEGATIVE (NEGATIVE)
[2018-03-29] MEDS: LORazepam 0.5 MG TAB PO (13:20)
[2018-03-29] MEDS: traZODone 50 MG TAB PO ×2 (20:58→22:53)
[2018-03-30] MEDS: TACROLIMUS 1 MG CAP (J7507) PO ×2 (08:52→20:28)
[2018-03-30] MEDS: MYCOPHENOLATE MOFETIL 250 MG CAP (J7517) PO ×2 (08:52→20:28)
[2018-03-30] MEDS: FERROUS SULFATE 325MG TAB PO (08:52)
[2018-03-30] MEDS: MULTIVITAMINS/MINERALS THERAP 1 TAB PO (08:53)
[2018-03-30] MEDS: ACETAMINOPHEN TAB 650MG DOSE (2X325MG) PO (17:16)
[2018-03-30] MEDS: traZODone 50 MG TAB PO (20:32)
[2018-03-30] MEDS: TACROLIMUS 0.5 MG CAP PO (21:12)
[2018-03-31 00:07] LABS: FK 506 (TACROLIMUS) LABCORP 3.3 ng/mL (2.0-20.0)
[2018-03-31] MEDS: TACROLIMUS 1 MG CAP (J7507) PO (08:44)
[2018-03-31] MEDS: MYCOPHENOLATE MOFETIL 250 MG CAP (J7517) PO (08:44)
[2018-03-31] MEDS: FERROUS SULFATE 325MG TAB PO (08:44)
[2018-03-31] MEDS: MULTIVITAMINS/MINERALS THERAP 1 TAB PO (08:46)
[2018-04-01 00:06] LABS: MYCOPHENOLIC ACID GLUCURONIDE 17 ug/mL (15-125); MYCOPHENOLIC ACID SERUM 2.9 ug/mL (1.0-3.5)
== END 2018-03-31 09:55 | disposition home or self-care (01) | DRG 885 ==
LOC: M ED INP 03-28 00:10 → M PSY 03-29 06:21 → M ED 20:13
DX: F32.0 Major depressive disorder, single episode, mild (principal); R45.851 Suicidal ideations; Z94.1 Heart transplant status; N39.0 Urinary tract infection, site not specified; I42.0 Dilated cardiomyopathy; F41.0 Panic disorder [episodic paroxysmal anxiety]; F40.10 Social phobia, unspecified; D50.9 Iron deficiency anemia, unspecified; Z79.899 Other long term (current) drug therapy

== ENCOUNTER → 2018-05-05 | Outpatient (REF) | payer MEDICAID, OTHER ==
[2018-05-05 22:31] LABS: CONTROL LINE UCG INT CTR LINE PRESENT; URINE PREG TEST NEGATIVE (NEGATIVE)
== END ==
LOC: M LAB REF 21:56
DX: N91.2 Amenorrhea, unspecified (principal)
CPT/HCPCS: 84703

== ENCOUNTER 2018-05-30 20:08 | Emergency (ER) | payer OTHER, MEDICAID ==
[2018-05-30 21:09] LABS: BASO % 0.4 % (0.0-1.0); EOS % 0.7 % (0.0-3.0); HEMATOCRIT 34.1 % (36.0-47.0); HEMOGLOBIN 10.9 g/dl (12.0-15.5); IMMATURE GRANULOCYTE % 0.2 % (0-3.0); LYMPH # 1.5 10^3/uL (1.5-6.5); LYMPH % 26.7 % (24.0-44.0); MEAN CORPUSCULAR VOLUME 84.6 fl (80.0-96.0); MONO # 0.5 10^3/uL (0.0-0.8); MONO % 8.6 % (0.0-5.0); NEUTROPHILS # 3.6 10^3/uL (1.8-7.7); NEUTROPHILS % 63.4 % (36.0-66.0); PLATELET COUNT, AUTOMATED 210 10^3/uL (150-450); RED BLOOD COUNT 4.03 10^6/uL (4.00-5.40); RED CELL DISTRIBUTION WIDTH 13.8 % (11.5-14.5); WHITE BLOOD COUNT 5.7 10^3/uL (4.0-10.0)
[2018-05-30 21:10] LABS: APPEARANCE, URINE CLEAR (CLEAR); BACTERIA, URINE AUTO NEGATIVE (NEGATIVE); BILIRUBIN, URINE AUTO NEGATIVE (NEGATIVE); BLOOD, URINE BLOOD NEGATIVE (NEGATIVE); COLOR, URINE YELLOW (YELLOW); GLUCOSE, URINE (UA) AUTO NEGATIVE (NEGATIVE); KETONE, URINE AUTO NEGATIVE (NEGATIVE); LEUKOCYTE ESTERASE, URINE AUTO NEGATIVE (NEGATIVE); MUCUS, URINE SMALL (NEGATIVE); NITRITE, URINE AUTO NEGATIVE (NEGATIVE); PROTEIN, URINE AUTO NEGATIVE (NEGATIVE); RBC, URINE AUTO 1 /HPF (0-3); SPECIFIC GRAVITY URINE AUTO 1.018 (1.002-1.035); SQUAMOUS EPITHELIAL CELL UR AU 0 /HPF (0-6); UROBILINOGEN, URINE AUTO 0.2 mg/dL (0.0-2.0); WBC, URINE AUTO 1 /HPF (0-3)
[2018-05-30 21:32] LABS: ALBUMIN/GLOBULIN RATIO 1.05 (1.00-1.93); ALKALINE PHOSPHATASE 67 U/L (45-117); ALT/SGPT 14 U/L (12-78); AMYLASE 53 U/L (25-115); ANION GAP 6 MEQ/L (8-16); AST/SGOT 10 U/L (7-37); BILIRUBIN,TOTAL 0.3 MG/DL (0.2-1.0); BLOOD UREA NITROGEN 20 MG/DL (7-18); CALCIUM LEVEL 9.3 MG/DL (8.5-10.1); CARBON DIOXIDE LEVEL 28 MEQ/L (21-32); CHLORIDE LEVEL 106 MEQ/L (98-107); CREATININE FOR GFR 0.92 MG/DL (0.55-1.30); GLOMERULAR FILTRATION RATE > 60.0 (>60); GLUCOSE, FASTING 86 MG/DL (70-100); HCG, SERUM QUANTITATIVE < 1.0 MIU/ML; LIPASE 121 U/L (73-393); POTASSIUM SERUM 3.6 MEQ/L (3.5-5.1); SODIUM LEVEL 140 MEQ/L (136-145); TOTAL PROTEIN 7.8 GM/DL (6.4-8.2)
[2018-05-30] MEDS: ACETAMINOPHEN 325 MG TAB PO (23:44)
[2018-05-31] MEDS: NORCO 5/325MG TABLET (BULK FOR ED) PO (02:09)
== END 2018-05-31 02:12 | disposition home or self-care (01) ==
LOC: M ED 05-31 02:12
DX: N83.11 Corpus luteum cyst of right ovary (principal); D69.2 Other nonthrombocytopenic purpura; I42.0 Dilated cardiomyopathy; Z94.1 Heart transplant status; R19.00 Intra-abdominal and pelvic swelling, mass and lump, unspecified site; Z79.899 Other long term (current) drug therapy; Z88.5 Allergy status to narcotic agent; Z88.8 Allergy status to other drugs, medicaments and biological substances
CPT/HCPCS: 76856

== ENCOUNTER 2018-07-15 22:41 | Emergency (ER) | payer OTHER, MEDICAID ==
[2018-07-15] MEDS: KETOROLAC 30 MG/ML VIAL (J1885) IV (23:26)
[2018-07-15 23:39] LABS: BASO % 0.4 % (0.0-1.0); EOS # 0.1 10^3/uL (0.0-0.50); EOS % 1.8 % (0.0-3.0); HEMATOCRIT 31.1 % (36.0-47.0); HEMOGLOBIN 9.8 g/dl (12.0-15.5); IMMATURE GRANULOCYTE % 0.2 % (0-3.0); LYMPH # 1.1 10^3/uL (1.5-6.5); LYMPH % 23.1 % (24.0-44.0); MEAN CORPUSCULAR HEMOGLOBIN 26.1 pg (27.0-33.0); MEAN CORPUSCULAR HGB CONC 31.5 g/dl (32.0-36.5); MEAN CORPUSCULAR VOLUME 82.7 fl (80.0-96.0); MONO # 0.4 10^3/uL (0.0-0.8); MONO % 7.8 % (0.0-5.0); NEUTROPHILS # 3.3 10^3/uL (1.8-7.7); NEUTROPHILS % 66.7 % (36.0-66.0); PLATELET COUNT, AUTOMATED 223 10^3/uL (150-450); RED BLOOD COUNT 3.76 10^6/uL (4.00-5.40); RED CELL DISTRIBUTION WIDTH 13.4 % (11.5-14.5); WHITE BLOOD COUNT 4.9 10^3/uL (4.0-10.0)
[2018-07-15 23:42] LABS: KETONE, URINE AUTO RFX NEGATIVE (NEGATIVE); LEUKOCYTE ESTERASE UR AUTO RFX NEGATIVE (NEGATIVE); MUCUS, URINE RFX SMALL (NEGATIVE); NITRITE, URINE AUTO RFX NEGATIVE (NEGATIVE); RBC, URINE AUTO RFX 3 /HPF (0-3); SPECIFIC GRAVITY UR AUTO RFX 1.027 (1.002-1.035); SQUAM EPITHELIAL CELL UR AURFX 1 /HPF (0-6); WBC, URINE AUTO RFX 3 /HPF (0-3)
[2018-07-15 23:53] LABS: INR 0.95; PROTHROMBIN TIME 12.8 SECONDS (12.1-14.4)
[2018-07-15 23:54] LABS: PARTIAL THROMBOPLASTIN TIME 29.2 SECONDS (25.4-37.6)
[2018-07-16] LABS: ALBUMIN 3.7 GM/DL (3.2-5.2); ALBUMIN/GLOBULIN RATIO 1.03 (1.00-1.93); ALKALINE PHOSPHATASE 71 U/L (45-117); ALT/SGPT 20 U/L (12-78); ANION GAP 6 MEQ/L (8-16); AST/SGOT 14 U/L (7-37); BILIRUBIN,DIRECT < 0.1 MG/DL (0.0-0.2); BILIRUBIN,TOTAL 0.2 MG/DL (0.2-1.0); BLOOD UREA NITROGEN 21 MG/DL (7-18); CALCIUM LEVEL 9.2 MG/DL (8.5-10.1); CARBON DIOXIDE LEVEL 27 MEQ/L (21-32); CHLORIDE LEVEL 108 MEQ/L (98-107); CREATININE FOR GFR 0.79 MG/DL (0.55-1.30); GLOMERULAR FILTRATION RATE > 60.0 (>60); GLUCOSE, FASTING 109 MG/DL (70-100); POTASSIUM SERUM 3.8 MEQ/L (3.5-5.1); SODIUM LEVEL 141 MEQ/L (136-145); TOTAL PROTEIN 7.3 GM/DL (6.4-8.2)
[2018-07-16 00:11] LABS: CONTROL LINE UCG INT CTR LINE PRESENT; URINE PREG TEST NEGATIVE (NEGATIVE)
[2018-07-16 02:00] LABS: CHLAMYDIA DNA AMPLIFICATION NEGATIVE (NEGATIVE); GC DNA AMPLIFICATION NEGATIVE (NEGATIVE)
== END 2018-07-16 01:37 | disposition home or self-care (01) ==
LOC: M ED 07-16 01:37
DX: N92.0 Excessive and frequent menstruation with regular cycle (principal); I42.0 Dilated cardiomyopathy; D69.2 Other nonthrombocytopenic purpura; Z79.899 Other long term (current) drug therapy; Z88.5 Allergy status to narcotic agent; Z88.8 Allergy status to other drugs, medicaments and biological substances
CPT/HCPCS: J1885

== ENCOUNTER 2018-08-03 15:20 | Emergency (ER) | payer OTHER | END 2018-08-03 16:13 | disposition home or self-care (01) | LOC: M ED 15:20 | DX: J20.9 Acute bronchitis, unspecified (principal); R09.1 Pleurisy; R00.0 Tachycardia, unspecified; R94.31 Abnormal electrocardiogram [ECG] [EKG]; I51.9 Heart disease, unspecified; Z79.899 Other long term (current) drug therapy; Z88.5 Allergy status to narcotic agent; Z88.8 Allergy status to other drugs, medicaments and biological substances | CPT/HCPCS: 93005 ==

== ENCOUNTER 2018-08-26 09:46 | Emergency (ER) | payer OTHER ==
[~2018-08-26] VITALS: Ht 157.5 cm; Wt 46.4 kg
[~2018-08-26 09:46] MED LIST changes: +CEFD1CAP8 PO; +CELL500T PO; +FERR1TAB8 PO; +FERR324T2 PO; +KLOR10TA76 PO; -LASI20TA PO; +LASI20TA3 PO; +MACR100C43 PO; +METR70GEL; +MULTCAP PO; +NORCOTAB PO; -POTA10CA PO; +PROAAER10 INH; +SPIR-10 PO; -SPIR25TA2 PO; +TESS100C PO; -VALA500T2 PO; +VALA500T5 PO; -ZOFR20TA PO; +ZOFR4TAB16 PO
[2018-08-26 10:31] LABS: BASO % 0.6 % (0.0-1.0); EOS # 0.1 10^3/uL (0.0-0.50); EOS % 3.3 % (0.0-3.0); HEMATOCRIT 32.5 % (36.0-47.0); HEMOGLOBIN 10.3 g/dl (12.0-15.5); LYMPH # 0.8 10^3/uL (1.5-6.5); LYMPH % 24.9 % (24.0-44.0); MEAN CORPUSCULAR HEMOGLOBIN 25.8 pg (27.0-33.0); MEAN CORPUSCULAR HGB CONC 31.7 g/dl (32.0-36.5); MEAN CORPUSCULAR VOLUME 81.3 fl (80.0-96.0); MONO # 0.5 10^3/uL (0.0-0.8); MONO % 14.6 % (0.0-5.0); NEUTROPHILS # 1.9 10^3/uL (1.8-7.7); NEUTROPHILS % 56.6 % (36.0-66.0); PLATELET COUNT, AUTOMATED 197 10^3/uL (150-450); WHITE BLOOD COUNT 3.3 10^3/uL (4.0-10.0)
[2018-08-26 10:35] LABS: INR 0.96; PROTHROMBIN TIME 12.9 SECONDS (12.1-14.4)
[2018-08-26 10:36] LABS: PARTIAL THROMBOPLASTIN TIME 29.4 SECONDS (25.4-37.6)
--- NOTE | 2018-08-26 10:54 | REP ---
Chest two views HISTORY: Fever Comparison: 03/24/2018 The lungs are clear. The heart is normal in size. The pulmonary vasculature is normal in appearance. The bony structure is intact. IMPRESSION: No acute disease. Electronically Signed by Rick Garcia MD 08/26/2018 10:47 A
[2018-08-26 10:59] LABS: ALBUMIN 3.6 GM/DL (3.2-5.2); ALT/SGPT 12 U/L (12-78); BILIRUBIN,DIRECT < 0.1 MG/DL (0.0-0.2); BILIRUBIN,TOTAL 0.2 MG/DL (0.2-1.0); BLOOD UREA NITROGEN 19 MG/DL (7-18); CALCIUM LEVEL 8.9 MG/DL (8.5-10.1); CARBON DIOXIDE LEVEL 26 MEQ/L (21-32); CHLORIDE LEVEL 106 MEQ/L (98-107); CREATININE FOR GFR 0.86 MG/DL (0.55-1.30); GLOMERULAR FILTRATION RATE > 60.0 (>60); GLUCOSE, FASTING 104 MG/DL (70-100); SODIUM LEVEL 139 MEQ/L (136-145); TOTAL PROTEIN 7.2 GM/DL (6.4-8.2)
[2018-08-26 13:30] VITALS: BP 106/68
--- NOTE | 2018-08-27 05:50 | ECGEPIP ---
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
== END 2018-08-26 13:43 | disposition home or self-care (01) ==
LOC: M ED 09:46
DX: L76.22 Postprocedural hemorrhage of skin and subcutaneous tissue following other procedure (principal); R42 Dizziness and giddiness; R11.10 Vomiting, unspecified; R50.9 Fever, unspecified; Z94.1 Heart transplant status; D12.6 Benign neoplasm of colon, unspecified; I42.9 Cardiomyopathy, unspecified; D50.9 Iron deficiency anemia, unspecified; F32.9 Major depressive disorder, single episode, unspecified; F41.9 Anxiety disorder, unspecified; Z88.3 Allergy status to other anti-infective agents; Z88.5 Allergy status to narcotic agent; Z88.8 Allergy status to other drugs, medicaments and biological substances; Z79.899 Other long term (current) drug therapy

== ENCOUNTER 2018-11-13 16:15 | Emergency (ER) | payer OTHER ==
[~2018-11-13] VITALS: Ht 157.5 cm; Wt 49.1 kg
[~2018-11-13 16:15] MED LIST changes: +HYDR-3715 PO; -NORCOTAB PO
[2018-11-13 18:15] LABS: INFLUENZA A AMPLIFICATION NEGATIVE (NEGATIVE); INFLUENZA B AMPLIFICATION NEGATIVE (NEGATIVE)
[2018-11-13] MEDS ORDERED: AMOX500C PO (19:08)
[2018-11-13 19:17] VITALS: BP 115/68
== END 2018-11-13 19:20 | disposition home or self-care (01) ==
LOC: M ED 16:15
DX: O99.511 Diseases of the respiratory system complicating pregnancy, first trimester (principal); J40 Bronchitis, not specified as acute or chronic; O99.611 Diseases of the digestive system complicating pregnancy, first trimester; D12.6 Benign neoplasm of colon, unspecified; O99.411 Diseases of the circulatory system complicating pregnancy, first trimester; I42.0 Dilated cardiomyopathy; Z94.1 Heart transplant status; Z3A.01 Less than 8 weeks gestation of pregnancy; Z88.3 Allergy status to other anti-infective agents; Z88.5 Allergy status to narcotic agent; Z88.8 Allergy status to other drugs, medicaments and biological substances; Z79.899 Other long term (current) drug therapy

== ENCOUNTER 2019-03-08 12:34 | Emergency (ER) | payer OTHER ==
[~2019-03-08] VITALS: Ht 157.5 cm; Wt 55.0 kg
[~2019-03-08 12:34] MED LIST changes: +AMOX500C PO
[2019-03-08] MEDS ORDERED: AZAT50TA2 (12:44)
[2019-03-08] MEDS ORDERED: LORA-674 (12:44)
[2019-03-08] MEDS ORDERED: IPRATROPIUM 0.5MG/ALBUTEROL 2.5MG INH SOL UD 3ML (DUONEB)(J7620) NEB ONE (14:45)
[2019-03-08 15:14] LABS: BASO % 0.1 % (0.0-1.0); EOS % 0.6 % (0.0-3.0); HEMATOCRIT 26.7 % (36.0-47.0); HEMOGLOBIN 8.5 g/dl (12.0-15.5); LYMPH # 0.9 10^3/uL (1.5-6.5); LYMPH % 13.1 % (24.0-44.0); MEAN CORPUSCULAR HEMOGLOBIN 28.9 pg (27.0-33.0); MEAN CORPUSCULAR HGB CONC 31.8 g/dl (32.0-36.5); MEAN CORPUSCULAR VOLUME 90.8 fl (80.0-96.0); MONO # 0.4 10^3/uL (0.0-0.8); MONO % 6.1 % (0.0-5.0); NEUTROPHILS # 5.3 10^3/uL (1.8-7.7); NEUTROPHILS % 79.5 % (36.0-66.0); PLATELET COUNT, AUTOMATED 160 10^3/uL (150-450); RED BLOOD COUNT 2.94 10^6/uL (4.00-5.40); WHITE BLOOD COUNT 6.7 10^3/uL (4.0-10.0)
[2019-03-08 15:23] LABS: INR 0.97; PROTHROMBIN TIME 12.6 SECONDS (11.8-14.0)
[2019-03-08 15:37] LABS: ALBUMIN 2.7 GM/DL (3.2-5.2); ALT/SGPT 10 U/L (12-78); BILIRUBIN,DIRECT < 0.1 MG/DL (0.0-0.2); BILIRUBIN,TOTAL 0.2 MG/DL (0.2-1.0); BLOOD UREA NITROGEN 9 MG/DL (7-18); CALCIUM LEVEL 8.7 MG/DL (8.5-10.1); CARBON DIOXIDE LEVEL 27 MEQ/L (21-32); CHLORIDE LEVEL 106 MEQ/L (98-107); CK-MB VALUE MASS < 1.0 NG/ML (<3.6); CPK CREATINE PHOSPHOKINASE 17 U/L (26-192); CREATININE FOR GFR 0.51 MG/DL (0.55-1.30); GLOMERULAR FILTRATION RATE > 60.0 (>60); GLUCOSE, FASTING 69 MG/DL (70-100); MB/CK RELATIVE INDEX 5.88 (< OR =4); NT-PRO BNP 837 PG/ML (<125); POTASSIUM SERUM 3.8 MEQ/L (3.5-5.1); SODIUM LEVEL 139 MEQ/L (136-145); THYROXINE (T4) 13.3 UG/DL (4.5-12.0); TOTAL PROTEIN 6.5 GM/DL (6.4-8.2); TROPONIN I < 0.02 NG/ML (< 0.10)
--- NOTE | 2019-03-08 16:58 | REP ---
Chest x-ray: Three views. History: Shortness of breath. Status post cardiac transplant. Comparison chest x-ray August 26, 2018. Findings: Sternotomy wires are noted in the manubrium. The lungs are symmetrically aerated and clear. Heart is not enlarged. Pulmonary vasculature is not increased. The pleural angles are sharp. No infiltrate is seen. Impression: No active cardiopulmonary disease. Electronically Signed by Clement Tomas MD 03/08/2019 04:49 P
--- NOTE | 2019-03-08 19:21 | REPVR ---
EXAM: US First Trimester, Transabdominal EXAM DATE/TIME: 03/08/2019 5:50 PM CLINICAL HISTORY: 23 years old, female; Lmp or gestational age (in weeks): 23w 6d; Antepartum complications; Other: Cramping; TECHNIQUE: Imaging protocol: Real-time transabdominal obstetrical ultrasound of the maternal pelvis and a first trimester , less than 14 weeks 0 days, with image documentation. COMPARISON: US PELVIC NON-OB COMPLETE 07/15/2018 11:52 PM FINDINGS: Biometry BPD = 5.56 cm; Estimated Menstrual Age = 23W0D; Range = + -12 days HC = 21.33 cm; Estimated Menstrual Age = 23W 3D; Range = + -10 days AC = 18.75 cm; Estimated Menstrual Age = 23W4D; Range = + -14 days FL = 4.34 cm; Estimated Menstrual Age = 24W 2D; Range = + -15 days HC/AC Ratio = 1.14 (1.05-1.21) 58th percentile EFW = 625 g (36 percentile) Amniotic fluid = qualitatively normal Cervix length = 4.7 cm Placenta: Posterior and fundal and free of the cervical os HR = 140 beats per minute Survey Nose/lips= normal Facial Profile = normal Lateral ventricles = normal Posterior Fossa = normal Spine = normal Heart = normal Left ventricular outflow tract = normal Right ventricular outflow tract = normal Stomach = normal Abdominal cord insertion = normal Kidneys = normal Bladder = normal 4 extremities and feet and hands are not clearly demonstrated. There are 4 extremities. Diaphragm: Not clearly seen Cerebrum markedly hypoechoic with suboptimal delineation of cortex IMPRESSION: 1. Single live intrauterine with an estimated menstrual age of 23 weeks and 4 days and expected date of delivery 07/01/2019. 2. The placenta is posterior and fundal and free of the cervical os. No evidence of retroplacental hemorrhage. 3. Normal survey images are not obtained of the feet, hands, and diaphragm. Submitted images of the brain demonstrates suboptimal delineation of the cerebrum/cerebral cortex. Followup examination recommended Electronically signed by: Shelly Cast On 03/08/2019 19:20:53 PM
[2019-03-08] MEDS ORDERED: FUROSEMIDE 20 MG/2 ML VIAL (J1940) IV ONE (23:00)
[2019-03-08] MEDS ORDERED: ACETAMINOPHEN 325 MG TAB PO ONE (23:00)
[2019-03-08] MEDS ORDERED: methylPREDNISolone 500 MG, VIAL MATE ADAPTER 1 EACH in D5W 250 ML IV ONE (23:00)
[2019-03-08 23:14] VITALS: BP 108/67
--- NOTE | 2019-03-09 05:45 | ECGEPIP ---
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
== END 2019-03-08 21:39 | disposition short-term general hospital (02) ==
LOC: M ED 12:34
DX: O09.92 Supervision of high risk pregnancy, unspecified, second trimester (principal); R06.02 Shortness of breath; D64.9 Anemia, unspecified; Z94.1 Heart transplant status; Z79.899 Other long term (current) drug therapy; Z88.5 Allergy status to narcotic agent; Z88.8 Allergy status to other drugs, medicaments and biological substances; Z3A.23 23 weeks gestation of pregnancy
CPT/HCPCS: 71046; 76811; 80048; 80076; 81001; 82550; 82553; 83880; 84436; 84443; 85025; 85610; 87040; 87086; 93005; 94640; 96374; 96375; 99284; J1940; J2930

== ENCOUNTER 2019-05-02 18:36 | Emergency (ER) | payer OTHER ==
[~2019-05-02] VITALS: Ht 157.5 cm; Wt 58.0 kg
[~2019-05-02 18:36] MED LIST changes: +AZAT50TA2; +LORA-674
[2019-05-02] MEDS ORDERED: FERR325T18 (18:49)
[2019-05-02 19:55] LABS: BASO % 0.1 % (0.0-1.0); EOS % 0.6 % (0.0-3.0); HEMATOCRIT 21.1 % (36.0-47.0); LYMPH # 0.8 10^3/uL (1.5-5.0); LYMPH % 11.8 % (24.0-44.0); MEAN CORPUSCULAR HGB CONC 32.2 g/dl (32.0-36.5); MEAN CORPUSCULAR VOLUME 86.8 fl (80.0-96.0); MONO # 0.4 10^3/uL (0.0-0.8); MONO % 6.2 % (0.0-5.0); NEUTROPHILS # 5.5 10^3/uL (1.5-8.5); NEUTROPHILS % 80.6 % (36.0-66.0); PLATELET COUNT, AUTOMATED 146 10^3/uL (150-450); RED BLOOD COUNT 2.43 10^6/uL (4.00-5.40); WHITE BLOOD COUNT 6.8 10^3/uL (4.0-10.0)
[2019-05-02 19:59] LABS: HEMOGLOBIN 6.8 g/dl (12.0-15.5)
[2019-05-02 20:04] LABS: PROTHROMBIN TIME 12.9 SECONDS (11.8-14.0)
[2019-05-02 20:05] LABS: PARTIAL THROMBOPLASTIN TIME 26.4 SECONDS (25.0-38.4)
[2019-05-02 20:31] LABS: ALBUMIN 2.6 GM/DL (3.2-5.2); ALT/SGPT 10 U/L (12-78); BILIRUBIN,DIRECT < 0.1 MG/DL (0.0-0.2); BILIRUBIN,TOTAL 0.2 MG/DL (0.2-1.0); BLOOD UREA NITROGEN 16 MG/DL (7-18); CALCIUM LEVEL 8.7 MG/DL (8.5-10.1); CARBON DIOXIDE LEVEL 25 MEQ/L (21-32); CHLORIDE LEVEL 107 MEQ/L (98-107); CK-MB VALUE MASS < 1.0 NG/ML (<3.6); CPK CREATINE PHOSPHOKINASE 20 U/L (26-192); FREE T4 1.02 NG/DL (0.76-1.46); GLOMERULAR FILTRATION RATE > 60.0 (>60); GLUCOSE, FASTING 86 MG/DL (70-100); POTASSIUM SERUM 4.1 MEQ/L (3.5-5.1); SODIUM LEVEL 140 MEQ/L (136-145); TOTAL PROTEIN 6.2 GM/DL (6.4-8.2); TROPONIN I < 0.02 NG/ML (< 0.10)
[2019-05-03 02:27] VITALS: BP 116/69
--- NOTE | 2019-05-03 07:29 | ECGEPIP ---
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
== END 2019-05-03 02:33 | disposition short-term general hospital (02) ==
LOC: M ED 18:36
DX: O99.89 Other specified diseases and conditions complicating pregnancy, childbirth and the puerperium (principal); R00.0 Tachycardia, unspecified; R94.31 Abnormal electrocardiogram [ECG] [EKG]; I45.89 Other specified conduction disorders; O99.013 Anemia complicating pregnancy, third trimester; O09.93 Supervision of high risk pregnancy, unspecified, third trimester; Z94.1 Heart transplant status; O99.113 Other diseases of the blood and blood-forming organs and certain disorders involving the immune mechanism complicating pregnancy, third trimester; Z3A.33 33 weeks gestation of pregnancy; Z79.899 Other long term (current) drug therapy; Z88.5 Allergy status to narcotic agent; Z88.8 Allergy status to other drugs, medicaments and biological substances
CPT/HCPCS: 36430; 80048; 80076; 80197; 82550; 82553; 84439; 84443; 85025; 85610; 85730; 86850; 86870; 86900; 86901; 86920; 93005; 93041; 94760; 99285; P9016

== ENCOUNTER → 2019-05-17 | Outpatient (REF) | payer OTHER ==
[~2019-05-17] MED LIST changes: +FERR325T18
== END ==
LOC: M LAB REF 19:07
PROVIDERS: ATTEND Physician Assistant
DX: J02.9 Acute pharyngitis, unspecified (principal)

== ENCOUNTER 2019-05-26 09:33 | Outpatient (CLI) | payer OTHER ==
[~2019-05-26] VITALS: Ht 157.5 cm; Wt 58.1 kg
[2019-05-26 09:47] VITALS: BP 118/76
[2019-05-26] MEDS ORDERED: MAPA500T2 PO (09:51)
[2019-05-26 10:09] VITALS: BP 120/80
[2019-05-26 11:28] VITALS: BP 118/80
[2019-05-26 12:49] VITALS: BP 120/73
== END 2019-05-26 12:55 | disposition home or self-care (01) ==
LOC: M LDO 09:33
PROVIDERS: ATTEND Obstetrics & Gynecology
DX: O47.03 False labor before 37 completed weeks of gestation, third trimester (principal); Z3A.35 35 weeks gestation of pregnancy

== ENCOUNTER → 2019-06-05 | Outpatient (CLI) | payer OTHER ==
[~2019-06-05] MED LIST changes: +MAPA500T2 PO
[2019-06-05 10:42] LABS: BASO % 0.3 % (0.0-1.0); EOS # 0.1 10^3/uL (0.0-0.5); EOS % 1.6 % (0.0-3.0); HEMATOCRIT 24.6 % (36.0-47.0); HEMOGLOBIN 8.1 g/dl (12.0-15.5); LYMPH # 0.7 10^3/uL (1.5-5.0); LYMPH % 10.3 % (24.0-44.0); MEAN CORPUSCULAR HGB CONC 32.9 g/dl (32.0-36.5); MEAN CORPUSCULAR VOLUME 88.2 fl (80.0-96.0); MONO # 0.5 10^3/uL (0.0-0.8); MONO % 7.7 % (0.0-5.0); NEUTROPHILS # 5.5 10^3/uL (1.5-8.5); NEUTROPHILS % 77.8 % (36.0-66.0); PLATELET COUNT, AUTOMATED 130 10^3/uL (150-450); RED BLOOD COUNT 2.79 10^6/uL (4.00-5.40)
[2019-06-05 11:22] LABS: ALBUMIN 2.7 GM/DL (3.2-5.2); ALT/SGPT 9 U/L (12-78); BILIRUBIN,TOTAL 0.3 MG/DL (0.2-1.0); BLOOD UREA NITROGEN 16 MG/DL (7-18); CALCIUM LEVEL 8.9 MG/DL (8.5-10.1); CARBON DIOXIDE LEVEL 24 MEQ/L (21-32); CHLORIDE LEVEL 108 MEQ/L (98-107); CREATININE FOR GFR 0.93 MG/DL (0.55-1.30); GLOMERULAR FILTRATION RATE > 60.0 (>60); GLUCOSE, FASTING 74 MG/DL (70-100); MAGNESIUM LEVEL 1.3 MG/DL (1.8-2.4); POTASSIUM SERUM 4.1 MEQ/L (3.5-5.1); SODIUM LEVEL 139 MEQ/L (136-145); TOTAL 25(OH) VITAMIN D 18.6 NG/ML (30.0-100.0); TOTAL PROTEIN 6.1 GM/DL (6.4-8.2)
[2019-06-08 00:07] LABS: CMV QUANT DNA PCR (PLASMA) Negative (Negative)
== END ==
LOC: M LAB 09:32
PROVIDERS: ATTEND Nurse Practitioner Acute Care
DX: Z79.899 Other long term (current) drug therapy (principal); Z94.1 Heart transplant status

== ENCOUNTER → 2019-06-08 | Outpatient (CLI) | payer OTHER | LOC: M LAB 09:32 | PROVIDERS: ATTEND Nurse Practitioner Acute Care | DX: Z13.1 Encounter for screening for diabetes mellitus (principal); Z94.1 Heart transplant status; Z79.899 Other long term (current) drug therapy ==

== ENCOUNTER → 2019-06-13 | Outpatient (CLI) | payer OTHER ==
[~2019-06-13] MED LIST changes: -AZAT50TA2; +AZAT50TA2 PO; +CYCL5TAB PO; -FERR325T18; +FERR325T18 PO; +HYDR-3713 PO; -LORA-674; +LORA-674 PO; +ONDA4TAB5 PO; +TACR5CAP4 PO
[2019-06-13 11:23] LABS: BASO % 0.1 % (0.0-1.0); EOS # 0.1 10^3/uL (0.0-0.5); EOS % 0.9 % (0.0-3.0); HEMATOCRIT 24.9 % (36.0-47.0); HEMOGLOBIN 8.1 g/dl (12.0-15.5); LYMPH # 0.8 10^3/uL (1.5-5.0); LYMPH % 11.2 % (24.0-44.0); MEAN CORPUSCULAR HEMOGLOBIN 28.9 pg (27.0-33.0); MEAN CORPUSCULAR HGB CONC 32.5 g/dl (32.0-36.5); MEAN CORPUSCULAR VOLUME 88.9 fl (80.0-96.0); MONO # 0.5 10^3/uL (0.0-0.8); MONO % 6.8 % (0.0-5.0); NEUTROPHILS # 5.4 10^3/uL (1.5-8.5); NEUTROPHILS % 79.8 % (36.0-66.0); PLATELET COUNT, AUTOMATED 128 10^3/uL (150-450); WHITE BLOOD COUNT 6.8 10^3/uL (4.0-10.0)
[2019-06-13 11:44] LABS: ALBUMIN 2.8 GM/DL (3.2-5.2); ALT/SGPT 13 U/L (12-78); BILIRUBIN,TOTAL 0.4 MG/DL (0.2-1.0); BLOOD UREA NITROGEN 20 MG/DL (7-18); CALCIUM LEVEL 8.9 MG/DL (8.5-10.1); CARBON DIOXIDE LEVEL 23 MEQ/L (21-32); CHLORIDE LEVEL 108 MEQ/L (98-107); CHOLESTEROL LEVEL 266 MG/DL (<200); CHOLESTEROL RISK RATIO 5.018 (<5); CREATININE FOR GFR 1.07 MG/DL (0.55-1.30); FREE T4 1.13 NG/DL (0.76-1.46); GLOMERULAR FILTRATION RATE > 60.0 (>60); GLUCOSE, FASTING 75 MG/DL (70-100); HDL CHOLESTEROL 53 MG/DL (>40); MAGNESIUM LEVEL 1.5 MG/DL (1.8-2.4); NON-HDL-C 213 MG/DL; POTASSIUM SERUM 4.3 MEQ/L (3.5-5.1); SODIUM LEVEL 139 MEQ/L (136-145); TOTAL PROTEIN 6.4 GM/DL (6.4-8.2); TRIGLYCERIDES LEVEL 751 MG/DL (<150)
[2019-06-16 00:07] LABS: CMV QUANT DNA PCR (PLASMA) Negative (Negative); LDL DIRECT 73 mg/dL (0-99)
== END ==
LOC: M LAB 09:34
PROVIDERS: ATTEND Nurse Practitioner Acute Care
DX: E83.42 Hypomagnesemia (principal); Z94.1 Heart transplant status; D89.9 Disorder involving the immune mechanism, unspecified; Z79.899 Other long term (current) drug therapy

== ENCOUNTER 2019-06-19 18:32 | Emergency (ER) | payer OTHER ==
[~2019-06-19] VITALS: Ht 157.5 cm; Wt 50.0 kg
[~2019-06-19 18:32] MED LIST changes: -CYCL5TAB PO; -HYDR-3713 PO; -ONDA4TAB5 PO; -TACR5CAP4 PO
[2019-06-19] MEDS ORDERED: CYCL5TAB PO (18:42)
[2019-06-19] MEDS ORDERED: HYDR-3713 PO (18:42)
[2019-06-19 19:00] LABS: MEAN CORPUSCULAR HGB CONC 34.6 g/dl (32.0-36.5); MEAN CORPUSCULAR VOLUME 89.7 fl (80.0-96.0); PLATELET COUNT, AUTOMATED 205 10^3/uL (150-450)
[2019-06-19 19:23] LABS: BLOOD UREA NITROGEN 11 MG/DL (7-18); CARBON DIOXIDE LEVEL 27 MEQ/L (21-32); CHLORIDE LEVEL 104 MEQ/L (98-107); CREATININE FOR GFR 0.77 MG/DL (0.55-1.30); GLOMERULAR FILTRATION RATE > 60.0 (>60); GLUCOSE, FASTING 91 MG/DL (70-100); POTASSIUM SERUM 3.5 MEQ/L (3.5-5.1); SODIUM LEVEL 139 MEQ/L (136-145)
[2019-06-19] MEDS ORDERED: METOCLOPRAMIDE INJ 10MG/2ML VIAL (J2765) IV ONE ×2 (19:30→22:30)
[2019-06-19] MEDS ORDERED: diphenhydrAMINE INJ 50MG/ML VIAL (J1200) IV ONE ×2 (19:30→22:30)
[2019-06-19] MEDS ORDERED: KETOROLAC 30 MG/ML VIAL (J1885) IV ONE (19:30)
[2019-06-19] MEDS ORDERED: NS 1,000 ML IV ONE (19:30)
[2019-06-19] MEDS ORDERED: ISOVUE-370 76% 100ML VIAL (Q9967) As Ordered ONE (19:32)
--- NOTE | 2019-06-19 20:31 | REPVR ---
PROCEDURE INFORMATION: Exam: CT Abdomen And Pelvis With Contrast Exam date and time: 06/19/2019 8:05 PM Clinical history: 24 years old, female; Abdominal pain; Prior surgery; Surgery date: Post-operative (0-2 days); Additional info: Severe back pain after recent delivery, epidural TECHNIQUE: Imaging protocol: Computed tomography of the abdomen and pelvis with intravenous contrast. Axial, coronal and sagittal reformatted images were created and reviewed. Radiation optimization: All CT scans at this facility use at least one of these dose optimization techniques: automated exposure control; mA and/or kV adjustment per patient size (includes targeted exams where dose is matched to clinical indication); or iterative reconstruction. Contrast material: ISO 370; Contrast volume: 100 ml; Contrast route: IV; COMPARISON: US PELVIC NON-OB COMPLETE 07/15/2018 11:52 PM FINDINGS: Liver: Unremarkable. Gallbladder and bile ducts: No radiodense gallstones. No biliary ductal dilatation. Pancreas: Unremarkable. Spleen: Unremarkable. Adrenals: Unremarkable. Kidneys and ureters: No mass. No radiodense calculi. No hydronephrosis. Stomach and bowel: No bowel wall thickening. No obstruction. No pneumatosis. Appendix: Normal. Intraperitoneal space: No free fluid. No organized fluid collection. No free air. Vasculature: Unremarkable. No aneurysm. Lymph nodes: No pathologically enlarged lymph nodes. Bladder: Unremarkable. Reproductive: Enlarged, uterus with blood products and gas in the endometrial canal. Bones/joints: No acute osseous abnormality. Soft tissues: Postsurgical changes in the anterior abdominal wall. IMPRESSION: 1. Enlarged, uterus with blood products and gas in the endometrial canal. 2. Additional findings, as above. Electronically signed by: Carlos Manuel Kimbrough On 06/19/2019 20:30:57 PM
--- NOTE | 2019-06-19 22:50 | ECGEPIP ---
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
--- NOTE | 2019-06-19 23:38 | REPVR ---
PROCEDURE INFORMATION: Exam: CT Head Without Contrast Exam date and time: 06/19/2019 10:30 PM Clinical history: 24 years old, female; Pain; Headache not specified; Additional info: New intractable headache TECHNIQUE: Imaging protocol: Computed tomography of the head without contrast. Radiation optimization: All CT scans at this facility use at least one of these dose optimization techniques: automated exposure control; mA and/or kV adjustment per patient size (includes targeted exams where dose is matched to clinical indication); or iterative reconstruction. COMPARISON: CT Head without contrast 03/27/2018 10:15 PM FINDINGS: Brain: No CT evidence of acute intracranial hemorrhage or acute territorial infarction. No significant mass effect or midline shift. Basal cisterns patent. Ventricles: Normal in size and configuration. Bones/joints: No acute osseous abnormality. Sinuses: Grossly unremarkable. Mastoid air cells: Grossly unremarkable. Soft tissues: Grossly unremarkable. IMPRESSION: No CT evidence of acute intracranial pathology. Electronically signed by: Carlos Manuel Kimbrough On 06/19/2019 23:37:58 PM
[2019-06-20] MEDS ORDERED: CYCL5TAB PO (01:42)
[2019-06-20] MEDS ORDERED: LORA-674 PO (01:42)
[2019-06-20] MEDS ORDERED: AZAT50TA2 PO (01:42)
[2019-06-20] MEDS ORDERED: TACR1CAP3 PO ×2 (01:42)
[2019-06-20] MEDS ORDERED: TACR5CAP4 PO (01:42)
[2019-06-20] MEDS ORDERED: ONDA4TAB5 PO (01:43)
[2019-06-20 01:50] VITALS: BP 125/71
== END 2019-06-20 01:52 | disposition home or self-care (01) ==
LOC: M ED 18:32 → EDBD 18:32 → M ED 06-20 01:52
DX: O89.4 Spinal and epidural anesthesia-induced headache during the puerperium (principal); I48.91 Unspecified atrial fibrillation; Z94.1 Heart transplant status; Z79.899 Other long term (current) drug therapy; Z88.5 Allergy status to narcotic agent; Z88.8 Allergy status to other drugs, medicaments and biological substances; Z91.89 Other specified personal risk factors, not elsewhere classified
CPT/HCPCS: 36415; 62273; 70450; 74177; 80048; 85027; 86140; 86850; 86870; 86900; 86901; 87040; 93005; 96361; 96374; 96375; 96376; 99284; J1200; J1885; J2765; Q9967

== ENCOUNTER → 2019-06-20 | Outpatient (CLI) | payer OTHER ==
[~2019-06-20] MED LIST changes: +CYCL5TAB PO; +HYDR-3713 PO; +LR 1,000 ML IV SCH; +MIDAZOLAM INJ 2 MG/2 ML VIAL (J2250) As Ordered ONE; +MIDAZOLAM INJ 2 MG/2 ML VIAL (J2250) IV ONE; +ONDA4TAB5 PO; +ONDANSETRON 4MG/2ML VIAL (J2405) IV PRN; +TACR5CAP4 PO
[2019-06-20 02:42] VITALS: BP 149/96
== END ==
LOC: M OPP 01:08
PROVIDERS: ATTEND Anesthesiology
DX: R51 Headache (principal); G97.1 Other reaction to spinal and lumbar puncture
CPT/HCPCS: 62273; J2250

== ENCOUNTER → 2019-07-12 | Outpatient (CLI) | payer OTHER ==
[~2019-07-12] MED LIST changes: -LR 1,000 ML IV SCH; -MIDAZOLAM INJ 2 MG/2 ML VIAL (J2250) As Ordered ONE; -MIDAZOLAM INJ 2 MG/2 ML VIAL (J2250) IV ONE; -ONDANSETRON 4MG/2ML VIAL (J2405) IV PRN
[2019-07-12 10:36] LABS: BASO % 0.4 % (0.0-1.0); EOS # 0.1 10^3/uL (0.0-0.5); EOS % 0.9 % (0.0-3.0); HEMATOCRIT 30.9 % (36.0-47.0); HEMOGLOBIN 10.2 g/dl (12.0-15.5); LYMPH # 1.3 10^3/uL (1.5-5.0); LYMPH % 24.6 % (24.0-44.0); MEAN CORPUSCULAR HEMOGLOBIN 29.8 pg (27.0-33.0); MEAN CORPUSCULAR VOLUME 90.4 fl (80.0-96.0); MONO # 0.3 10^3/uL (0.0-0.8); MONO % 5.7 % (0.0-5.0); NEUTROPHILS # 3.7 10^3/uL (1.5-8.5); PLATELET COUNT, AUTOMATED 262 10^3/uL (150-450); RED BLOOD COUNT 3.42 10^6/uL (4.00-5.40); WHITE BLOOD COUNT 5.4 10^3/uL (4.0-10.0)
[2019-07-12 11:21] LABS: ALBUMIN 3.7 GM/DL (3.2-5.2); ALT/SGPT 15 U/L (12-78); BILIRUBIN,TOTAL 0.8 MG/DL (0.2-1.0); BLOOD UREA NITROGEN 27 MG/DL (7-18); CALCIUM LEVEL 9.6 MG/DL (8.5-10.1); CARBON DIOXIDE LEVEL 27 MEQ/L (21-32); CHLORIDE LEVEL 107 MEQ/L (98-107); CREATININE FOR GFR 1.02 MG/DL (0.55-1.30); GLOMERULAR FILTRATION RATE > 60.0 (>60); GLUCOSE, FASTING 83 MG/DL (70-100); MAGNESIUM LEVEL 1.7 MG/DL (1.8-2.4); SODIUM LEVEL 141 MEQ/L (136-145); TOTAL PROTEIN 7.4 GM/DL (6.4-8.2)
== END ==
LOC: M LAB 09:32
PROVIDERS: ATTEND Nurse Practitioner Acute Care
DX: Z94.1 Heart transplant status (principal); Z79.899 Other long term (current) drug therapy; E83.42 Hypomagnesemia

== ENCOUNTER → 2020-03-05 | Outpatient (CLI) | payer OTHER ==
[~2020-03-05] MED LIST changes: +ENAL5TA PO; -ENAL5TAB PO; +ONDA-83 PO; -ONDA4TAB5 PO
--- NOTE | 2020-03-05 11:26 | REP ---
REASON: Right lower quadrant pain. COMPARISON: 07/15/2018 which was within normal limits. Transvesical imaging only was obtained. The reason for lack of transvaginal imaging is unknown to me. The lack of transvaginal imaging decreases the sensitivity of the exam. The uterus measures 8.5 x 4.7 x 6.2 cm. The parenchymal echo pattern is within normal limits. The endometrial echo complex is within normal limits with a maximal thickness of 1.3 cm. The right ovary measures 3.3 x 2.2 x 2.5 cm and is within normal limits. There is a dominant follicle present. The right ovarian RI is 0.36. Left ovary measures 2.1 x 1.x 1.3 cm and is within normal limits with RI of 0.59. There is no free fluid. Urinary bladder was not imaged possibly secondary to decompression. IMPRESSION: Exam is limited without transvaginal imaging. No abnormalities are identified today.
== END ==
LOC: M PLAIMG 08:26
PROVIDERS: ATTEND Nurse Practitioner Family
DX: R10.31 Right lower quadrant pain (principal)

== ENCOUNTER → 2020-03-21 | Outpatient (CLI) | payer OTHER | LOC: M LABSMTC 11:00 | PROVIDERS: ATTEND Internal Medicine | DX: Z11.59 Encounter for screening for other viral diseases (principal) ==

== ENCOUNTER → 2020-04-04 | Outpatient (CLI) | payer OTHER | LOC: M LABSMTC 10:35 | PROVIDERS: ATTEND Internal Medicine | DX: Z11.59 Encounter for screening for other viral diseases (principal) | CPT/HCPCS: C9803; U0003 ==

== ENCOUNTER → 2020-04-17 | Outpatient (CLI) | payer OTHER | LOC: M LABSMTC 12:35 | PROVIDERS: ATTEND Internal Medicine | DX: Z03.818 Encounter for observation for suspected exposure to other biological agents ruled out (principal); Z11.59 Encounter for screening for other viral diseases | CPT/HCPCS: C9803; U0003 ==

== ENCOUNTER 2020-07-31 21:31 | Emergency (ER) | payer OTHER ==
[~2020-07-31] VITALS: Ht 157.5 cm; Wt 54.1 kg
[2020-07-31] MEDS ORDERED: MYCO250C (21:45)
[2020-07-31 22:14] LABS: BASO % 0.4 % (0.0-1.0); EOS # 0.1 10^3/uL (0.0-0.5); EOS % 1.5 % (0.0-3.0); HEMATOCRIT 33.3 % (36.0-47.0); HEMOGLOBIN 9.8 g/dl (12.0-15.5); LYMPH # 1.4 10^3/uL (1.5-5.0); LYMPH % 29.6 % (24.0-44.0); MEAN CORPUSCULAR HEMOGLOBIN 23.9 pg (27.0-33.0); MEAN CORPUSCULAR HGB CONC 29.4 g/dl (32.0-36.5); MEAN CORPUSCULAR VOLUME 81.2 fl (80.0-96.0); MONO # 0.4 10^3/uL (0.0-0.8); MONO % 8.5 % (0.0-5.0); NEUTROPHILS # 2.8 10^3/uL (1.5-8.5); PLATELET COUNT, AUTOMATED 227 10^3/uL (150-450); WHITE BLOOD COUNT 4.7 10^3/uL (4.0-10.0)
[2020-07-31 22:23] LABS: INR 0.93; PROTHROMBIN TIME 12.7 SECONDS (12.5-14.3)
[2020-07-31 22:44] LABS: ALBUMIN 3.7 GM/DL (3.2-5.2); ALT/SGPT 18 U/L (12-78); BILIRUBIN,DIRECT < 0.1 MG/DL (0.0-0.2); BILIRUBIN,TOTAL 0.2 MG/DL (0.2-1.0); BLOOD UREA NITROGEN 18 MG/DL (7-18); CARBON DIOXIDE LEVEL 28 MEQ/L (21-32); CHLORIDE LEVEL 109 MEQ/L (98-107); CK-MB VALUE MASS < 1.0 NG/ML (<3.6); CPK CREATINE PHOSPHOKINASE 50 U/L (26-192); CREATININE FOR GFR 0.81 MG/DL (0.55-1.30); GLOMERULAR FILTRATION RATE > 60.0 (>60); GLUCOSE, FASTING 78 MG/DL (70-100); HCG, SERUM QUANTITATIVE < 1.0 MIU/ML; LIPASE 117 U/L (73-393); POTASSIUM SERUM 3.6 MEQ/L (3.5-5.1); SODIUM LEVEL 143 MEQ/L (136-145); TOTAL PROTEIN 7.5 GM/DL (6.4-8.2); TROPONIN I 0.02 NG/ML (< 0.10)
[2020-08-01 00:12] LABS: FERRITIN 4 NG/ML (8-252); IRON (FE) 26 UG/DL (50-170); PERCENT SATURATION 6.3 % (13.2-45.0); TOTAL IRON BINDING CAPACITY 416 UG/DL (250-450)
[2020-08-01 00:20] LABS: VITAMIN B12 LEVEL 646 PG/ML
[2020-08-01 00:21] LABS: FOLATE 18.8 NG/ML
--- NOTE | 2020-08-01 00:22 | REPVR ---
PROCEDURE INFORMATION: Exam: US Pelvis Complete, Transabdominal and US Duplex Artery or Vein, Ovaries, Limited Exam date and time: 07/31/2020 11:55 PM Age: 25 years old Clinical indication: Pelvic pain TECHNIQUE: Imaging protocol: Real-time transabdominal pelvic ultrasound with image documentation. Real-time duplex ultrasound scan of the arterial or venous flow of the ovaries with B-mode, color Doppler flow and spectral waveform analysis. Complete Pelvis, Limited Duplex. COMPARISON: PELVIS NON-OB COMPLETE US 03/05/2020 8:37 AM FINDINGS: Uterus/cervix: 9.5 x 6.1 x 6.1 cm. Normal endometrial thickening, measuring approximately 10 mm. Right ovary: 2.1 x 2.2 x 2.4 cm. No mass. Normal blood flow. Left ovary: 2.6 x 1.5 x 1.9 cm. No mass. Normal blood flow. Free fluid: None. Bladder: Normal. IMPRESSION: No acute sonographic findings. Electronically signed by: Carlos Manuel Kimbrough On 08/01/2020 00:22:09 AM
[2020-08-01 02:25] LABS: CHLAMYDIA DNA AMPLIFICATION NEGATIVE (NEGATIVE); GC DNA AMPLIFICATION NEGATIVE (NEGATIVE)
[2020-08-01 02:35] VITALS: BP 113/64
--- NOTE | 2020-08-02 09:19 | ECGEPIP ---
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
== END 2020-08-01 02:40 | disposition home or self-care (01) ==
LOC: M ED 21:31
DX: R10.2 Pelvic and perineal pain (principal); D50.9 Iron deficiency anemia, unspecified; D12.6 Benign neoplasm of colon, unspecified; Z94.1 Heart transplant status; Z79.899 Other long term (current) drug therapy; Z88.5 Allergy status to narcotic agent; Z88.8 Allergy status to other drugs, medicaments and biological substances

== ENCOUNTER 2020-10-22 18:46 | Emergency (ER) | payer OTHER ==
[~2020-10-22] VITALS: Ht 157.5 cm; Wt 56.3 kg
[~2020-10-22 18:46] MED LIST changes: +MYCO250C
[2020-10-22] MEDS ORDERED: IRON27TA2 PO (18:53)
[2020-10-22] MEDS ORDERED: ACETAMINOPHEN 500 MG TAB PO ONE (20:15)
[2020-10-22 21:05] LABS: BASO % 0.3 % (0.0-1.0); EOS # 0.1 10^3/uL (0.0-0.5); EOS % 2.4 % (0.0-3.0); HEMATOCRIT 33.4 % (36.0-47.0); HEMOGLOBIN 10.3 g/dl (12.0-15.5); LYMPH # 1.5 10^3/uL (1.5-5.0); LYMPH % 25.8 % (24.0-44.0); MEAN CORPUSCULAR HEMOGLOBIN 24.6 pg (27.0-33.0); MEAN CORPUSCULAR HGB CONC 30.8 g/dl (32.0-36.5); MEAN CORPUSCULAR VOLUME 79.7 fl (80.0-96.0); MONO # 0.5 10^3/uL (0.0-0.8); MONO % 8.5 % (2.0-8.0); NEUTROPHILS # 3.7 10^3/uL (1.5-8.5); NEUTROPHILS % 62.7 % (36.0-66.0); PLATELET COUNT, AUTOMATED 224 10^3/uL (150-450); RED BLOOD COUNT 4.19 10^6/uL (4.00-5.40); WHITE BLOOD COUNT 5.9 10^3/uL (4.0-10.0)
[2020-10-22 21:16] LABS: PROTHROMBIN TIME 13.4 SECONDS (12.5-14.3)
[2020-10-22 21:17] LABS: PARTIAL THROMBOPLASTIN TIME 28.8 SECONDS (24.2-38.5)
[2020-10-22 21:19] LABS: D-DIMER QUANT 549.86 ng/ml (<500)
[2020-10-22 21:37] LABS: HCG, SERUM QUALITATIVE NEGATIVE (NEGATIVE)
[2020-10-22 21:40] LABS: ALBUMIN 3.7 GM/DL (3.2-5.2); ALT/SGPT 18 U/L (12-78); BILIRUBIN,TOTAL 0.1 MG/DL (0.2-1.0); BLOOD UREA NITROGEN 21 MG/DL (7-18); CALCIUM LEVEL 8.8 MG/DL (8.5-10.1); CARBON DIOXIDE LEVEL 27 MEQ/L (21-32); CHLORIDE LEVEL 107 MEQ/L (98-107); CK-MB VALUE MASS < 1.0 NG/ML (<3.6); CPK CREATINE PHOSPHOKINASE 30 U/L (26-192); CREATININE FOR GFR 0.78 MG/DL (0.55-1.30); FERRITIN 4 NG/ML (8-252); GLOMERULAR FILTRATION RATE > 60.0 (>60); GLUCOSE, FASTING 89 MG/DL (70-100); MAGNESIUM LEVEL 1.9 MG/DL (1.8-2.4); MB/CK RELATIVE INDEX 3.33 (< OR =4); POTASSIUM SERUM 3.5 MEQ/L (3.5-5.1); SODIUM LEVEL 140 MEQ/L (136-145); TOTAL PROTEIN 7.3 GM/DL (6.4-8.2); TROPONIN I 0.03 NG/ML (< 0.10)
[2020-10-22 21:45] LABS: MONO SCRN NEGATIVE (NEGATIVE)
--- NOTE | 2020-10-22 21:54 | REPVR ---
PROCEDURE INFORMATION: Exam: XR Chest Exam date and time: 10/22/2020 9:48 PM Age: 25 years old Clinical indication: Other: Cv josue; Additional info: Coronavirus workup TECHNIQUE: Imaging protocol: XR of the chest Views: 1 view. COMPARISON: CR Chest, 2 view PA, Lat 03/08/2019 4:36 PM FINDINGS: Lungs: Unremarkable. No consolidation. Pleural spaces: Unremarkable. No pleural effusion. No pneumothorax. Heart/Mediastinum: Unremarkable. No cardiomegaly. Bones/joints: Sternotomy wires at the level of the manubrium. Findings are stable. IMPRESSION: No acute findings. Electronically signed by: Dayo Cuellar On 10/22/2020 21:54:33 PM
[2020-10-22] MEDS ORDERED: ISOVUE-370 76% 100ML VIAL As Ordered ONE (22:36)
--- NOTE | 2020-10-22 23:36 | REPVR ---
PROCEDURE INFORMATION: Exam: CT Angiography Chest With Contrast Exam date and time: 10/22/2020 10:52 PM Age: 25 years old Clinical indication: Cough and shortness of breath; Additional info: Elev d dimer, cough, pleuritic chest pain, SOB TECHNIQUE: Imaging protocol: Computed tomographic angiography of the chest with contrast. 3D rendering (Not supervised by radiologist): MIP and/or 3D reconstructed images were created by the technologist. Radiation optimization: All CT scans at this facility use at least one of these dose optimization techniques: automated exposure control; mA and/or kV adjustment per patient size (includes targeted exams where dose is matched to clinical indication); or iterative reconstruction. Contrast material: ISOVUE 370; Contrast volume: 75 ml; Contrast route: INTRAVENOUS (IV); COMPARISON: CT ANGIO CHEST 06/11/2015 5:13 AM FINDINGS: Pulmonary arteries: Normal. No pulmonary emboli. Aorta: There is opacification of the aorta which appears intact. Lungs: Clear appearing lungs. Pleural spaces: There is no evidence of pneumothorax or pleural effusion. Heart: There is moderate cardiomegaly there is no pericardial effusion. Lymph nodes: Unremarkable. No enlarged lymph nodes. Bones/joints: The thoracic vertebra appear in alignment. Soft tissues: Unremarkable. Other findings: Manubrial wires are present. IMPRESSION: No evidence of pulmonary embolus. Electronically signed by: Jer Gill On 10/22/2020 23:36:19 PM
[2020-10-23 00:16] VITALS: BP 112/77
[2020-10-23 00:59] LABS: MONO REFLEX EBV COMP NEGATIVE (NEGATIVE)
--- NOTE | 2020-10-24 07:52 | ECGEPIP ---
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
[2020-10-24 18:07] LABS: EBV VIRAL CAPSID AG IgG >600.0 U/mL (0.0-17.9); EBV VIRAL CAPSID AG IgM <36.0 U/mL (0.0-35.9)
== END 2020-10-23 00:40 | disposition home or self-care (01) ==
LOC: M ED 18:46
DX: R51.9 Headache, unspecified (principal); R09.81 Nasal congestion; R06.02 Shortness of breath; R07.9 Chest pain, unspecified; Z20.822 Contact with and (suspected) exposure to COVID-19; Z94.1 Heart transplant status; Z79.899 Other long term (current) drug therapy; Z88.5 Allergy status to narcotic agent; Z88.8 Allergy status to other drugs, medicaments and biological substances
CPT/HCPCS: 71045; 71275; 80053; 82550; 82553; 82728; 82803; 83605; 83735; 84145; 84484; 84703; 85025; 85379; 85384; 85610; 85730; 86140; 86308; 86644; 86664; 86665; 87040; 87798; 87880; 93005; 99284; Q9967

== ENCOUNTER → 2021-10-05 | Outpatient (REF) | payer OTHER ==
[~2021-10-05] MED LIST changes: -CEFD1CAP8 PO; +CEFD300C41 PO; +CETI-24; +IRON27TA2 PO; +ISOS10TA3 PO; -ISOS1TAB13 PO; -KLOR10TA76 PO; +POTA-136 PO
[2021-10-05 14:50] LABS: BASO % 0.3 % (0.0-1.0); EOS # 0.1 10^3/uL (0.0-0.5); EOS % 0.9 % (0.0-3.0); HEMATOCRIT 38.4 % (36.0-47.0); HEMOGLOBIN 12.5 g/dl (12.0-15.5); LYMPH % 31.6 % (24.0-44.0); MEAN CORPUSCULAR HEMOGLOBIN 28.4 pg (27.0-33.0); MEAN CORPUSCULAR HGB CONC 32.6 g/dl (32.0-36.5); MEAN CORPUSCULAR VOLUME 87.3 fl (80.0-96.0); MONO # 0.5 10^3/uL (0.0-0.8); NEUTROPHILS # 3.8 10^3/uL (1.5-8.5); PLATELET COUNT, AUTOMATED 197 10^3/uL (150-450); WHITE BLOOD COUNT 6.4 10^3/uL (4.0-10.0)
[2021-10-05 15:31] LABS: ALBUMIN 4.1 GM/DL (3.2-5.2); ALT/SGPT 19 U/L (12-78); BILIRUBIN,TOTAL 0.2 MG/DL (0.2-1.0); BLOOD UREA NITROGEN 18 MG/DL (7-18); CARBON DIOXIDE LEVEL 27 MEQ/L (21-32); CHLORIDE LEVEL 105 MEQ/L (98-107); CREATININE FOR GFR 0.74 MG/DL (0.55-1.30); GLOMERULAR FILTRATION RATE > 60.0 (>60); GLUCOSE, FASTING 58 MG/DL (70-100); MAGNESIUM LEVEL 1.8 MG/DL (1.8-2.4); POTASSIUM SERUM 3.2 MEQ/L (3.5-5.1); SODIUM LEVEL 141 MEQ/L (136-145); TOTAL PROTEIN 7.3 GM/DL (6.4-8.2); TRIGLYCERIDES LEVEL 181 MG/DL (<150)
== END ==
LOC: M SHH 14:37
PROVIDERS: ATTEND Nurse Practitioner Acute Care
DX: T86.21 Heart transplant rejection (principal); D84.9 Immunodeficiency, unspecified; Z79.899 Other long term (current) drug therapy; E78.5 Hyperlipidemia, unspecified; E83.42 Hypomagnesemia; B25.9 Cytomegaloviral disease, unspecified

== ENCOUNTER → 2021-10-12 | Outpatient (REF) | payer OTHER ==
[2021-10-12 15:20] LABS: BASO % 0.3 % (0.0-1.0); EOS # 0.1 10^3/uL (0.0-0.5); EOS % 1.1 % (0.0-3.0); HEMATOCRIT 38.2 % (36.0-47.0); HEMOGLOBIN 12.3 g/dl (12.0-15.5); LYMPH # 1.4 10^3/uL (1.5-5.0); LYMPH % 22.3 % (24.0-44.0); MEAN CORPUSCULAR HEMOGLOBIN 28.1 pg (27.0-33.0); MEAN CORPUSCULAR HGB CONC 32.2 g/dl (32.0-36.5); MEAN CORPUSCULAR VOLUME 87.4 fl (80.0-96.0); MONO # 0.4 10^3/uL (0.0-0.8); MONO % 6.4 % (2.0-8.0); NEUTROPHILS # 4.2 10^3/uL (1.5-8.5); NEUTROPHILS % 69.6 % (36.0-66.0); PLATELET COUNT, AUTOMATED 187 10^3/uL (150-450); RED BLOOD COUNT 4.37 10^6/uL (4.00-5.40); WHITE BLOOD COUNT 6.1 10^3/uL (4.0-10.0)
[2021-10-12 15:50] LABS: ALBUMIN 3.9 GM/DL (3.2-5.2); ALT/SGPT 19 U/L (12-78); BILIRUBIN,TOTAL 0.4 MG/DL (0.2-1.0); BLOOD UREA NITROGEN 12 MG/DL (7-18); CALCIUM LEVEL 9.1 MG/DL (8.5-10.1); CARBON DIOXIDE LEVEL 24 MEQ/L (21-32); CHLORIDE LEVEL 107 MEQ/L (98-107); CREATININE FOR GFR 0.65 MG/DL (0.55-1.30); GLOMERULAR FILTRATION RATE > 60.0 (>60); GLUCOSE, FASTING 75 MG/DL (70-100); MAGNESIUM LEVEL 1.7 MG/DL (1.8-2.4); POTASSIUM SERUM 3.5 MEQ/L (3.5-5.1); SODIUM LEVEL 142 MEQ/L (136-145); TRIGLYCERIDES LEVEL 315 MG/DL (<150)
== END ==
LOC: M SHH 15:03
PROVIDERS: ATTEND Nurse Practitioner Acute Care
DX: T86.21 Heart transplant rejection (principal); D84.9 Immunodeficiency, unspecified; Z79.899 Other long term (current) drug therapy; E78.5 Hyperlipidemia, unspecified; E83.42 Hypomagnesemia; B25.9 Cytomegaloviral disease, unspecified

== ENCOUNTER → 2021-10-20 | Outpatient (REF) | payer OTHER ==
[2021-10-20 15:49] LABS: BASO % 0.5 % (0.0-1.0); EOS # 0.1 10^3/uL (0.0-0.5); EOS % 1.1 % (0.0-3.0); HEMATOCRIT 38.8 % (36.0-47.0); HEMOGLOBIN 12.6 g/dl (12.0-15.5); LYMPH # 1.5 10^3/uL (1.5-5.0); LYMPH % 24.5 % (24.0-44.0); MEAN CORPUSCULAR HEMOGLOBIN 27.6 pg (27.0-33.0); MEAN CORPUSCULAR HGB CONC 32.5 g/dl (32.0-36.5); MEAN CORPUSCULAR VOLUME 84.9 fl (80.0-96.0); MONO # 0.5 10^3/uL (0.0-0.8); MONO % 8.3 % (2.0-8.0); NEUTROPHILS % 65.3 % (36.0-66.0); PLATELET COUNT, AUTOMATED 203 10^3/uL (150-450); RED BLOOD COUNT 4.57 10^6/uL (4.00-5.40); WHITE BLOOD COUNT 6.2 10^3/uL (4.0-10.0)
[2021-10-20 16:32] LABS: ALBUMIN 4.3 GM/DL (3.2-5.2); ALT/SGPT 17 U/L (12-78); BILIRUBIN,TOTAL 0.1 MG/DL (0.2-1.0); BLOOD UREA NITROGEN 13 MG/DL (7-18); CALCIUM LEVEL 8.9 MG/DL (8.5-10.1); CARBON DIOXIDE LEVEL 27 MEQ/L (21-32); CHLORIDE LEVEL 108 MEQ/L (98-107); CREATININE FOR GFR 0.54 MG/DL (0.55-1.30); GLOMERULAR FILTRATION RATE > 60.0 (>60); GLUCOSE, FASTING 104 MG/DL (70-100); MAGNESIUM LEVEL 1.5 MG/DL (1.8-2.4); POTASSIUM SERUM 3.3 MEQ/L (3.5-5.1); SODIUM LEVEL 142 MEQ/L (136-145); TOTAL PROTEIN 6.9 GM/DL (6.4-8.2); TRIGLYCERIDES LEVEL 231 MG/DL (<150)
== END ==
LOC: M SHH 15:13
PROVIDERS: ATTEND Nurse Practitioner Acute Care
DX: Z51.81 Encounter for therapeutic drug level monitoring (principal); Z79.899 Other long term (current) drug therapy; D84.9 Immunodeficiency, unspecified; E78.5 Hyperlipidemia, unspecified; T86.21 Heart transplant rejection; B25.9 Cytomegaloviral disease, unspecified; E83.42 Hypomagnesemia

== ENCOUNTER → 2021-11-09 | Outpatient (REF) | payer OTHER ==
[2021-11-09 13:43] LABS: BASO % 0.4 % (0.0-1.0); EOS # 0.1 10^3/uL (0.0-0.5); EOS % 1.1 % (0.0-3.0); HEMATOCRIT 36.2 % (36.0-47.0); HEMOGLOBIN 11.4 g/dl (12.0-15.5); LYMPH # 1.7 10^3/uL (1.5-5.0); MEAN CORPUSCULAR HEMOGLOBIN 27.3 pg (27.0-33.0); MEAN CORPUSCULAR HGB CONC 31.5 g/dl (32.0-36.5); MEAN CORPUSCULAR VOLUME 86.8 fl (80.0-96.0); MONO # 0.5 10^3/uL (0.0-0.8); NEUTROPHILS # 3.1 10^3/uL (1.5-8.5); NEUTROPHILS % 58.3 % (36.0-66.0); PLATELET COUNT, AUTOMATED 215 10^3/uL (150-450); RED BLOOD COUNT 4.17 10^6/uL (4.00-5.40); WHITE BLOOD COUNT 5.4 10^3/uL (4.0-10.0)
[2021-11-09 14:11] LABS: ALBUMIN 3.9 GM/DL (3.2-5.2); ALT/SGPT 22 U/L (12-78); BILIRUBIN,TOTAL 0.3 MG/DL (0.2-1.0); BLOOD UREA NITROGEN 20 MG/DL (7-18); CALCIUM LEVEL 8.9 MG/DL (8.5-10.1); CARBON DIOXIDE LEVEL 29 MEQ/L (21-32); CHLORIDE LEVEL 106 MEQ/L (98-107); CREATININE FOR GFR 0.63 MG/DL (0.55-1.30); GLOMERULAR FILTRATION RATE > 60.0 (>60); GLUCOSE, FASTING 72 MG/DL (70-100); MAGNESIUM LEVEL 1.9 MG/DL (1.8-2.4); POTASSIUM SERUM 3.2 MEQ/L (3.5-5.1); SODIUM LEVEL 139 MEQ/L (136-145); TOTAL PROTEIN 6.6 GM/DL (6.4-8.2); TRIGLYCERIDES LEVEL 202 MG/DL (<150)
[2021-11-12 14:14] LABS: CMV QUANT DNA PCR (PLASMA) Negative (Negative)
== END ==
LOC: M SHH 12:42
PROVIDERS: ATTEND Nurse Practitioner Acute Care
DX: T86.21 Heart transplant rejection (principal); D84.9 Immunodeficiency, unspecified; E78.5 Hyperlipidemia, unspecified; B25.9 Cytomegaloviral disease, unspecified; E83.42 Hypomagnesemia; Z79.899 Other long term (current) drug therapy

== ENCOUNTER 2021-11-18 22:37 | Emergency (ER) | payer OTHER ==
[~2021-11-18] VITALS: Ht 157.5 cm; Wt 62.7 kg
[2021-11-18] MEDS ORDERED: PRAV40TA2 (22:49)
[2021-11-18] MEDS ORDERED: SIRO1TAB3 (22:49)
[2021-11-18] MEDS ORDERED: PRED5TA (22:49)
[2021-11-18] MEDS ORDERED: POTA-151 (22:49)
[2021-11-18] MEDS ORDERED: ASPI81TA26 (22:49)
[2021-11-19 01:21] VITALS: BP 141/83
== END 2021-11-19 02:27 | disposition short-term general hospital (02) ==
LOC: M ED 22:37
DX: T82.49XA Other complication of vascular dialysis catheter, initial encounter (principal); Z94.1 Heart transplant status; Z95.810 Presence of automatic (implantable) cardiac defibrillator; Z79.899 Other long term (current) drug therapy; Z88.5 Allergy status to narcotic agent; Z88.8 Allergy status to other drugs, medicaments and biological substances

== ENCOUNTER 2022-04-28 08:40 | Day surgery (SDC) | payer OTHER ==
[~2022-04-28] VITALS: Ht 157.5 cm; Wt 59.5 kg
[~2022-04-28 08:40] MED LIST changes: +ACETAMINOPHEN *IV* 1,000 MG IV ONE; +ASPI81TA26 PO; -AZAT50TA2 PO; +AZAT50TA37 PO; +BACT400T PO; -CETI-24; +CETI-24 PO; +D3 S20002 PO; +FLUC150T9 PO; +MAGN400T2 PO; -MYCO250C; +MYCO250C PO; +POTA-151 PO; +PRAV40TA2 PO; +PRED10TA2 PO; +PRED5TA; +SIRO1TAB3 PO; +VALG1TAB PO
[2022-04-28 09:11] LABS: HEMOGLOBIN 11.9 g/dl (12.0-15.5); MEAN CORPUSCULAR HEMOGLOBIN 26.3 pg (27.0-33.0); MEAN CORPUSCULAR HGB CONC 32.2 g/dl (32.0-36.5); MEAN CORPUSCULAR VOLUME 81.7 fl (80.0-96.0); PLATELET COUNT, AUTOMATED 200 10^3/uL (150-450); RED BLOOD COUNT 4.53 10^6/uL (4.00-5.40); WHITE BLOOD COUNT 6.8 10^3/uL (4.0-10.0)
[2022-04-28] MEDS ORDERED: LR 1,000 ML IV SCH ×2 (09:30→12:40)
[2022-04-28] MEDS ORDERED: propofoL 200 MG/20 ML VIAL As Ordered ONE (10:21)
[2022-04-28] MEDS ORDERED: LIDOCAINE 2% 100MG/5ML SDV (FOR ANES.) As Ordered ONE (10:21)
[2022-04-28] MEDS ORDERED: dexameTHASONE 4 MG/ML 1ML VIAL (J1100 PER 1MG) As Ordered ONE (10:21)
[2022-04-28] MEDS ORDERED: fentaNYL 100 MCG/2 ML INJECTION As Ordered ONE (10:24)
[2022-04-28] MEDS ORDERED: MIDAZOLAM INJ 2MG/2ML VIAL (J2250 PER 1MG) As Ordered ONE (10:24)
[2022-04-28] MEDS ORDERED: ONDANSETRON 4MG 2ML VIAL As Ordered ONE (10:34)
[2022-04-28] MEDS ORDERED: ePHEDrine SULFATE 25 MG/5 ML(5MG/ML) SYRINGE As Ordered ONE (10:38)
[2022-04-28] MEDS ORDERED: IODINE STRONG SOLN 15 ML BTL As Ordered ONE (11:23)
[2022-04-28] MEDS ORDERED: LIDOCAINE W/EPINEPHRINE 1% 20ML VIAL As Ordered ONE (11:27)
[2022-04-28] MEDS ORDERED: ACETAMINOPHEN 1000MG 100ML IV BTL (OFIRMEV) (J0131 PER 10MG) As Ordered ONE (12:01)
[2022-04-28] MEDS ORDERED: KETOROLAC 60MG 2ML VIAL As Ordered ONE ×2 (12:32→12:36)
[2022-04-28] MEDS ORDERED: MORPHINE 2 MG/ML 1ML VIAL IV PRN (12:40)
[2022-04-28] MEDS ORDERED: ONDANSETRON 4MG 2ML VIAL IV PRN (12:40)
[2022-04-28] MEDS: fentaNYL 100 MCG/2 ML INJECTION IV PRN ×4 (13:23→13:46)
[2022-04-28 14:55] VITALS: BP 160/100
== END 2022-04-28 15:04 | disposition home or self-care (01) ==
LOC: M SDC 08:40
PROVIDERS: ATTEND Obstetrics & Gynecology
DX: N87.1 Moderate cervical dysplasia (principal); Z94.1 Heart transplant status; Z79.899 Other long term (current) drug therapy; Z88.8 Allergy status to other drugs, medicaments and biological substances; Z79.82 Long term (current) use of aspirin; Z79.52 Long term (current) use of systemic steroids
CPT/HCPCS: 36415; 57522; 81025; 85027; 86850; 86900; 86901; 88305; 88307; J0131; J1100; J1885; J2250; J2405; J3010

== ENCOUNTER 2022-05-31 08:40 | Outpatient (CLI) | payer OTHER ==
[~2022-05-31] VITALS: Ht 157.5 cm; Wt 60.3 kg
[~2022-05-31 08:40] MED LIST changes: -ACETAMINOPHEN *IV* 1,000 MG IV ONE; +ACETAMINOPHEN 650MG PO PRIOR TO INFUSION PO ONE; +ALBUTEROL SULFATE 2.5 MG/0.5 ML INH NEB SOLN INH PRN; +EPINEPHrine INJ 1 MG/ML 1ML AMP IM PRN; +IMMUNE GLOBULIN 10% 20 GM in IV 1 EA IV ONE; +IMMUNE GLOBULIN 10% 40 GM in IV 1 EA IV ONE; +NS 1,000 ML IV SCH; +diphenhydrAMINE 25MG PO PRIOR TO INFUSION PO ONE; +diphenhydrAMINE 50MG/ML VIAL (J1200) IV PRN; +methylPREDNISolone 125MG 2ML VIAL IV PRN
[2022-05-31 08:45] VITALS: BP 131/92
[2022-05-31] MEDS ORDERED: diphenhydrAMINE 50MG/ML VIAL (J1200) IV ONE (09:25)
[2022-05-31] MEDS ORDERED: HYDROCORTISONE 100 MG/2 ML VIAL (J1720 PER 1) IV ONE (09:25)
[2022-05-31] MEDS ORDERED: ONDANSETRON 4MG 2ML VIAL IV ONE (09:30)
[2022-05-31 10:50] VITALS: BP 130/83
[2022-05-31 11:20] VITALS: BP 143/90
[2022-05-31 12:50] VITALS: BP 124/82
[2022-05-31 13:50] VITALS: BP 124/66
[2022-05-31 15:30] VITALS: BP 120/84
== END 2022-05-31 15:45 | disposition home or self-care (01) ==
LOC: M INFU 08:40
PROVIDERS: ATTEND Nurse Practitioner Acute Care
DX: Z94.1 Heart transplant status (principal); Z88.8 Allergy status to other drugs, medicaments and biological substances
CPT/HCPCS: 96365; 96366; 96375; J1200; J1459; J1720; J2405

== ENCOUNTER 2022-10-19 09:54 | Outpatient (CLI) | payer OTHER ==
[~2022-10-19] VITALS: Ht 157.5 cm; Wt 59.4 kg
[~2022-10-19 09:54] MED LIST changes: -ACETAMINOPHEN 650MG PO PRIOR TO INFUSION PO ONE; -ALBUTEROL SULFATE 2.5 MG/0.5 ML INH NEB SOLN INH PRN; +ALBUTEROL SULFATE 2.5MG/0.5ML INH NEB SOLN INH PRN; +ENAL1TAB48 PO; -ENAL5TA PO; +ONDANSETRON 4MG 2ML VIAL IV ONE; -VALG1TAB PO; +VALG450T10 PO; -diphenhydrAMINE 25MG PO PRIOR TO INFUSION PO ONE; -diphenhydrAMINE 50MG/ML VIAL (J1200) IV PRN; +diphenhydrAMINE 50MG/ML VIAL IV ONE; +diphenhydrAMINE 50MG/ML VIAL IV PRN; +methylPREDNISolone 125MG 2ML VIAL IV ONE
[2022-10-19 10:22] VITALS: BP 130/96
[2022-10-19 10:58] VITALS: BP 131/88
[2022-10-19 12:00] VITALS: BP 132/72
[2022-10-19 13:00] VITALS: BP 132/72
[2022-10-19 15:31] VITALS: BP 139/85
== END 2022-10-19 15:40 | disposition home or self-care (01) ==
LOC: M INFU 09:54
PROVIDERS: ATTEND Nurse Practitioner Acute Care
DX: Z94.1 Heart transplant status (principal); Z88.8 Allergy status to other drugs, medicaments and biological substances
CPT/HCPCS: 96365; 96366; 96375; J1200; J1459; J2405; J2930

== ENCOUNTER 2022-11-03 10:30 | Outpatient (CLI) | payer OTHER ==
[2022-11-03] VITALS (7 sets, daily range): BP systolic 129–157; BP diastolic 80–99
[~2022-11-03] VITALS: Ht 157.5 cm; Wt 54.5 kg
[2022-11-03] MEDS ORDERED: ROSU10TA6 PO (11:03)
[2022-11-03] MEDS ORDERED: PRED10TA2 PO (11:05)
== END 2022-11-03 17:10 | disposition home or self-care (01) ==
LOC: M INFU 10:30
PROVIDERS: ATTEND Nurse Practitioner Acute Care
DX: Z94.1 Heart transplant status (principal); Z88.2 Allergy status to sulfonamides; Z91.048 Other nonmedicinal substance allergy status
CPT/HCPCS: 96365; 96366; 96367; J1200; J1459; J2405; J2930

== ENCOUNTER → 2023-01-20 | Outpatient (CLI) | payer OTHER ==
[2023-01-19] VITALS (7 sets, daily range): BP systolic 112–132; BP diastolic 74–94
[~2023-01-20] VITALS: Ht 157.5 cm; Wt 56.0 kg
[~2023-01-20] MED LIST changes: +ACETAMINOPHEN TAB 650MG DOSE (2X325MG) PO ONE; +HYDROCORTISONE 100MG/2ML VIAL IV ONE; +IMMUNE GLOBULIN 10% 10 GM in IV 1 EA IV ONE; -IMMUNE GLOBULIN 10% 20 GM in IV 1 EA IV ONE; +IMMUNE GLOBULIN 10% 5 GM in IV 1 EA IV ONE; +ROSU10TA6 PO; -methylPREDNISolone 125MG 2ML VIAL IV ONE
== END ==
LOC: M INFU 08:45
PROVIDERS: ATTEND Nurse Practitioner Acute Care
DX: Z94.1 Heart transplant status (principal); Z91.048 Other nonmedicinal substance allergy status; Z88.2 Allergy status to sulfonamides
CPT/HCPCS: 96365; 96366; J1200; J1459; J1720; J2405

== ENCOUNTER → 2023-02-01 | Outpatient (CLI) | payer OTHER ==
[~2023-02-01] VITALS: Ht 157.5 cm; Wt 56.0 kg
[2023-02-01] VITALS (7 sets, daily range): BP systolic 120–145; BP diastolic 90–111; O2SAT 97–100
== END ==
LOC: M INFU 07:58
PROVIDERS: ATTEND Nurse Practitioner Acute Care
DX: Z94.1 Heart transplant status (principal); Z88.8 Allergy status to other drugs, medicaments and biological substances
CPT/HCPCS: 96365; 96366; 96375; J1200; J1459; J1720; J2405

== ENCOUNTER 2023-03-01 07:45 | Outpatient (CLI) | payer OTHER ==
[2023-03-01] VITALS (7 sets, daily range): BP systolic 124–139; BP diastolic 79–95; O2SAT 96–100
[~2023-03-01] VITALS: Ht 157.5 cm; Wt 56.0 kg
[~2023-03-01 07:45] MED LIST changes: +diphenhydrAMINE 50MG CAP PO ONE; -diphenhydrAMINE 50MG/ML VIAL IV ONE
[2023-03-01] MEDS ORDERED: diphenhydrAMINE 50MG/ML VIAL IV ONE (08:25)
== END 2023-03-01 14:25 ==
LOC: M INFU 07:45
PROVIDERS: ATTEND Nurse Practitioner Acute Care
DX: T86.21 Heart transplant rejection (principal); Z88.8 Allergy status to other drugs, medicaments and biological substances
CPT/HCPCS: 96365; 96366; 96375; J1200; J1459; J1720; J2405

== ENCOUNTER 2023-03-18 08:39 | Outpatient (CLI) | payer OTHER ==
[~2023-03-18] VITALS: Ht 157.5 cm; Wt 54.5 kg
[2023-03-18] VITALS (7 sets, daily range): BP systolic 119–149; BP diastolic 80–98; O2SAT 96–99
[~2023-03-18 08:39] MED LIST changes: +ACETAMINOPHEN 650MG PO PRIOR TO INFUSION PO ONE; -ACETAMINOPHEN TAB 650MG DOSE (2X325MG) PO ONE; +CURRENT HEIGHT AND WEIGHT NEEDED ON PATIENT XX SCH; -diphenhydrAMINE 50MG CAP PO ONE; +diphenhydrAMINE 50MG IV PRIOR TO INFUSION IV ONE
== END 2023-03-18 14:25 ==
LOC: M INFU 08:39
PROVIDERS: ATTEND Nurse Practitioner Acute Care
DX: T86.21 Heart transplant rejection (principal); Z88.8 Allergy status to other drugs, medicaments and biological substances
CPT/HCPCS: 96365; 96366; 96375; J1200; J1459; J1720; J2405

== ENCOUNTER 2023-04-04 22:18 | Emergency (ER) | payer OTHER ==
[~2023-04-04] VITALS: Ht 157.5 cm; Wt 58.9 kg
[~2023-04-04 22:18] MED LIST changes: -ACETAMINOPHEN 650MG PO PRIOR TO INFUSION PO ONE; -ALBUTEROL SULFATE 2.5MG/0.5ML INH NEB SOLN INH PRN; -CURRENT HEIGHT AND WEIGHT NEEDED ON PATIENT XX SCH; -EPINEPHrine INJ 1 MG/ML 1ML AMP IM PRN; -HYDROCORTISONE 100MG/2ML VIAL IV ONE; -IMMUNE GLOBULIN 10% 10 GM in IV 1 EA IV ONE; -IMMUNE GLOBULIN 10% 40 GM in IV 1 EA IV ONE; -IMMUNE GLOBULIN 10% 5 GM in IV 1 EA IV ONE; -NS 1,000 ML IV SCH; -ONDANSETRON 4MG 2ML VIAL IV ONE; -diphenhydrAMINE 50MG IV PRIOR TO INFUSION IV ONE; -diphenhydrAMINE 50MG/ML VIAL IV PRN; -methylPREDNISolone 125MG 2ML VIAL IV PRN
[2023-04-04 23:31] LABS: APPEARANCE, URINE HAZY (CLEAR); BACTERIA, URINE AUTO NEGATIVE (NEGATIVE); BILIRUBIN, URINE AUTO NEGATIVE (NEGATIVE); BLOOD, URINE BLOOD 2+ (NEGATIVE); COLOR, URINE YELLOW (YELLOW); GLUCOSE, URINE (UA) AUTO 1+ mg/dL (NEGATIVE); KETONE, URINE AUTO NEGATIVE (NEGATIVE); LEUKOCYTE ESTERASE, URINE AUTO NEGATIVE (NEGATIVE); MUCUS, URINE SMALL (NEGATIVE); NITRITE, URINE AUTO NEGATIVE (NEGATIVE); PROTEIN, URINE AUTO 2+ mg/dL (NEGATIVE); RBC, URINE AUTO 3 /HPF (0-3); SQUAMOUS EPITHELIAL CELL UR AU 6 /HPF (0-6); UROBILINOGEN, URINE AUTO 0.2 mg/dL (0.0-2.0); WBC, URINE AUTO 1 /HPF (0-3)
[2023-04-05 00:44] LABS: BASO % 0.3 % (0.0-1.0); EOS % 0.2 % (0.0-3.0); HEMATOCRIT 38.9 % (36.0-47.0); LYMPH # 1.4 10^3/uL (1.5-5.0); LYMPH % 23.3 % (24.0-44.0); MEAN CORPUSCULAR HGB CONC 33.4 g/dl (32.0-36.5); MEAN CORPUSCULAR VOLUME 86.8 fl (80.0-96.0); MONO # 0.4 10^3/uL (0.0-0.8); MONO % 7.1 % (2.0-8.0); NEUTROPHILS % 68.2 % (36.0-66.0); PLATELET COUNT, AUTOMATED 229 10^3/uL (150-450); RED BLOOD COUNT 4.48 10^6/uL (4.00-5.40); WHITE BLOOD COUNT 5.8 10^3/uL (4.0-10.0)
[2023-04-05 00:46] LABS: LIPASE 29 U/L (12-53)
[2023-04-05 00:49] LABS: ALBUMIN 3.9 G/DL (3.2-5.2); ALKALINE PHOSPHATASE 52 U/L (46-116); ALT/SGPT 24 U/L (7.0-40); AST/SGOT 16 U/L (<34); BILIRUBIN,DIRECT < 0.1 MG/DL (<0.4); BILIRUBIN,TOTAL 0.2 MG/DL (0.3-1.2); BLOOD UREA NITROGEN 20 MG/DL (9-23); CALCIUM LEVEL 9.5 MG/DL (8.5-10.1); CARBON DIOXIDE LEVEL 25 MMOL/L (20-31); CHLORIDE LEVEL 105 MMOL/L (98-107); CREATININE FOR GFR 0.79 MG/DL (0.55-1.30); GLOMERULAR FILTRATION RATE > 60.0 (>60); GLUCOSE, FASTING 129 MG/DL (60-100); POTASSIUM SERUM 3.5 MMOL/L (3.5-5.1); SODIUM LEVEL 140 MMOL/L (136-145); TOTAL PROTEIN 7.8 G/DL (5.7-8.2)
[2023-04-05 01:00] LABS: HCG, SERUM QUALITATIVE NEGATIVE (NEGATIVE)
[2023-04-05] MEDS ORDERED: LISI10TA22 PO (06:37)
[2023-04-05] MEDS ORDERED: KETOROLAC 30 MG/ML 1ML VIAL IV ONE (06:45)
[2023-04-05] MEDS ORDERED: NS 1,000 ML IV ONE (06:45)
[2023-04-05] MEDS ORDERED: ISOVUE-370 76% 100ML VIAL As Ordered ONE (07:23)
[2023-04-05 07:37] LABS: RSV AMPLIFICATION NEGATIVE (NEGATIVE)
[2023-04-05 10:30] VITALS: BP 137/86; TEMP 98.1; O2SAT 98
== END 2023-04-05 10:30 | disposition home or self-care (01) ==
LOC: M ED 22:18
DX: N83.292 Other ovarian cyst, left side (principal); I10 Essential (primary) hypertension; Z94.1 Heart transplant status; Z79.82 Long term (current) use of aspirin; Z79.899 Other long term (current) drug therapy; Z88.8 Allergy status to other drugs, medicaments and biological substances
CPT/HCPCS: 74177; 76856; 80048; 80076; 81001; 83690; 84703; 85025; 87631; 93976; 96361; 96374; 99285; J1885; Q9967

== ENCOUNTER → 2023-05-11 | Outpatient (REF) | payer MEDICAID ==
[~2023-05-11] MED LIST changes: +LISI10TA22 PO; +LORA-1041 PO; -LORA-674 PO
== END ==
LOC: M LAB REF 12:17
PROVIDERS: ATTEND Physician Assistant
DX: J02.9 Acute pharyngitis, unspecified (principal); B34.9 Viral infection, unspecified

== ENCOUNTER → 2023-05-23 | Outpatient (CLI) | payer OTHER, MEDICAID ==
[~2023-05-23] VITALS: Ht 157.5 cm; Wt 59.5 kg
[~2023-05-23] MED LIST changes: +ACETAMINOPHEN TAB 650MG DOSE (2X325MG) PO ONE; +ALBUTEROL SULFATE 2.5MG/0.5ML INH NEB SOLN INH PRN; +CURRENT HEIGHT AND WEIGHT NEEDED ON PATIENT XX SCH; +EPINEPHrine INJ 1 MG/ML 1ML AMP IM PRN; +HYDROCORTISONE 100MG/2ML VIAL IV ONE; +IMMUNE GLOBULIN 10% 10 GM in IV 1 EA IV ONE; +IMMUNE GLOBULIN 10% 40 GM in IV 1 EA IV ONE; +IMMUNE GLOBULIN 10% 5 GM in IV 1 EA IV ONE; +NS 1,000 ML IV SCH; +ONDANSETRON 4MG 2ML VIAL IV ONE; +diphenhydrAMINE 50MG/ML VIAL IV ONE; +diphenhydrAMINE 50MG/ML VIAL IV PRN; +methylPREDNISolone 125MG 2ML VIAL IV PRN
[2023-05-23 07:50] VITALS: BP 136/97; O2SAT 98
[2023-05-23 10:00] VITALS: BP 122/85; O2SAT 97
[2023-05-23 10:30] VITALS: BP 131/89; O2SAT 97
[2023-05-23 11:30] VITALS: BP 125/78; O2SAT 98
[2023-05-23 13:00] VITALS: BP 133/87; O2SAT 96
[2023-05-23 13:58] VITALS: BP 140/90; O2SAT 99
== END ==
LOC: M INFU 07:52
PROVIDERS: ATTEND Nurse Practitioner Acute Care
DX: T86.21 Heart transplant rejection (principal); Z88.8 Allergy status to other drugs, medicaments and biological substances
CPT/HCPCS: 96365; 96366; 96375; J1200; J1459; J1720; J2405

== ENCOUNTER 2023-06-21 07:40 | Outpatient (CLI) | payer OTHER, MEDICAID ==
[2023-06-20 07:53] VITALS: BP 137/92; O2SAT 96
[2023-06-20 09:30] VITALS: BP 125/80; O2SAT 98
[2023-06-20 10:00] VITALS: BP 118/78; O2SAT 98
[2023-06-20 10:30] VITALS: BP 119/66; O2SAT 98
[2023-06-20 11:30] VITALS: BP 117/69; O2SAT 98
[2023-06-20 12:30] VITALS: BP 131/84; O2SAT 97
[~2023-06-21] VITALS: Ht 157.5 cm; Wt 61.4 kg
[~2023-06-21 07:40] MED LIST changes: +ACETAMINOPHEN 650MG PO PRIOR TO INFUSION PO ONE; -ACETAMINOPHEN TAB 650MG DOSE (2X325MG) PO ONE; -CEFD300C41 PO; +CEFD300C42 PO; -CURRENT HEIGHT AND WEIGHT NEEDED ON PATIENT XX SCH; +IMMUNE GLOBULIN 10% 20 GM in IV 1 EA IV ONE; +diphenhydrAMINE 50MG IV PRIOR TO INFUSION IV ONE; -diphenhydrAMINE 50MG/ML VIAL IV ONE
== END 2023-06-21 07:45 | disposition home or self-care (01) ==
LOC: M INFU 07:40
PROVIDERS: ATTEND Nurse Practitioner Acute Care
DX: T86.21 Heart transplant rejection (principal); Z88.8 Allergy status to other drugs, medicaments and biological substances
CPT/HCPCS: 96365; 96366; 96375; J1200; J1459; J1720; J2405

== ENCOUNTER 2023-07-04 11:33 | Emergency (ER) | payer OTHER, MEDICAID ==
[~2023-07-04] VITALS: Ht 157.5 cm; Wt 62.7 kg
[~2023-07-04 11:33] MED LIST changes: -ACETAMINOPHEN 650MG PO PRIOR TO INFUSION PO ONE; -ALBUTEROL SULFATE 2.5MG/0.5ML INH NEB SOLN INH PRN; -EPINEPHrine INJ 1 MG/ML 1ML AMP IM PRN; -HYDROCORTISONE 100MG/2ML VIAL IV ONE; -IMMUNE GLOBULIN 10% 10 GM in IV 1 EA IV ONE; -IMMUNE GLOBULIN 10% 20 GM in IV 1 EA IV ONE; -IMMUNE GLOBULIN 10% 40 GM in IV 1 EA IV ONE; -IMMUNE GLOBULIN 10% 5 GM in IV 1 EA IV ONE; -NS 1,000 ML IV SCH; -ONDANSETRON 4MG 2ML VIAL IV ONE; -diphenhydrAMINE 50MG IV PRIOR TO INFUSION IV ONE; -diphenhydrAMINE 50MG/ML VIAL IV PRN; -methylPREDNISolone 125MG 2ML VIAL IV PRN
[2023-07-04 12:57] LABS: BASO % 0.3 % (0.0-1.0); EOS # 0.1 10^3/uL (0.0-0.5); EOS % 0.9 % (0.0-3.0); HEMATOCRIT 40.1 % (36.0-47.0); HEMOGLOBIN 13.1 g/dl (12.0-15.5); LYMPH # 1.4 10^3/uL (1.5-5.0); LYMPH % 19.5 % (24.0-44.0); MEAN CORPUSCULAR HEMOGLOBIN 27.9 pg (27.0-33.0); MEAN CORPUSCULAR HGB CONC 32.7 g/dl (32.0-36.5); MEAN CORPUSCULAR VOLUME 85.5 fl (80.0-96.0); MONO # 0.5 10^3/uL (0.0-0.8); MONO % 6.5 % (2.0-8.0); NEUTROPHILS # 5.1 10^3/uL (1.5-8.5); NEUTROPHILS % 72.7 % (36.0-66.0); PLATELET COUNT, AUTOMATED 225 10^3/uL (150-450); RED BLOOD COUNT 4.69 10^6/uL (4.00-5.40)
[2023-07-04] MEDS ORDERED: SUCRALFATE 1 GM TAB PO ONE (13:05)
[2023-07-04] MEDS ORDERED: PANTOPRAZOLE 40MG VIAL IV ONE (13:05)
[2023-07-04] MEDS ORDERED: ASPIRIN 81MG CHEW TABLET PO ONE (13:05)
[2023-07-04 13:07] LABS: INR 1.02; PROTHROMBIN TIME 13.1 SECONDS (12.5-14.5)
[2023-07-04 13:08] LABS: PARTIAL THROMBOPLASTIN TIME 28.4 SECONDS (24.8-34.2)
[2023-07-04 13:09] LABS: CK-MB VALUE MASS < 1.0 NG/ML (<3.6); LIPASE 34 U/L (12-53)
[2023-07-04 13:11] LABS: ALBUMIN 3.5 G/DL (3.2-5.2); ALKALINE PHOSPHATASE 60 U/L (46-116); ALT/SGPT 19 U/L (7.0-40); AST/SGOT 17 U/L (<34); BILIRUBIN,DIRECT < 0.1 MG/DL (<0.4); BILIRUBIN,TOTAL 0.3 MG/DL (0.3-1.2); BLOOD UREA NITROGEN 17 MG/DL (9-23); CALCIUM LEVEL 9.4 MG/DL (8.5-10.1); CARBON DIOXIDE LEVEL 27 MMOL/L (20-31); CHLORIDE LEVEL 102 MMOL/L (98-107); CPK CREATINE PHOSPHOKINASE 30 U/L (34-145); CREATININE FOR GFR 0.59 MG/DL (0.55-1.30); GLOMERULAR FILTRATION RATE > 60.0 (>60); GLUCOSE, FASTING 73 MG/DL (60-100); MB/CK RELATIVE INDEX 3.33 (< OR =4); POTASSIUM SERUM 3.7 MMOL/L (3.5-5.1); SODIUM LEVEL 138 MMOL/L (136-145); TOTAL PROTEIN 8.2 G/DL (5.7-8.2)
[2023-07-04 13:13] LABS: THYROID STIMULATING HORMONE 1.585 uIU/ML (0.55-4.78)
[2023-07-04 13:20] LABS: HCG, SERUM QUALITATIVE NEGATIVE (NEGATIVE)
[2023-07-04 14:00] LABS: CK-MB VALUE MASS < 1.0 NG/ML (<3.6)
[2023-07-04 14:01] LABS: CPK CREATINE PHOSPHOKINASE 27 U/L (34-145)
[2023-07-04 14:06] LABS: RSV AMPLIFICATION NEGATIVE (NEGATIVE)
[2023-07-04 15:18] VITALS: BP 144/95; TEMP 97.5; O2SAT 98
== END 2023-07-04 15:27 | disposition home or self-care (01) ==
LOC: M ED 11:33
DX: R07.9 Chest pain, unspecified (principal); Z88.2 Allergy status to sulfonamides; Z91.048 Other nonmedicinal substance allergy status; Z79.811 Long term (current) use of aromatase inhibitors; Z79.621 Long term (current) use of calcineurin inhibitor; Z79.899 Other long term (current) drug therapy
CPT/HCPCS: 71046; 80048; 80076; 82550; 82553; 83690; 83880; 84443; 84484; 84702; 84703; 85025; 85610; 85730; 87631; 93005; 96374; 99284; C9113

== ENCOUNTER 2023-07-19 08:00 | Outpatient (CLI) | payer OTHER, MEDICAID ==
[2023-07-19] VITALS (7 sets, daily range): BP systolic 119–134; BP diastolic 68–89; O2SAT 96–99
[~2023-07-19 08:00] MED LIST changes: +ALBUTEROL SULFATE 2.5MG/0.5ML INH NEB SOLN INH PRN; +EPINEPHrine INJ 1 MG/ML 1ML AMP IM PRN; +diphenhydrAMINE 50MG/ML VIAL IV PRN; +methylPREDNISolone 125MG 2ML VIAL IV PRN
[2023-07-19] MEDS ORDERED: diphenhydrAMINE 50MG IV PRIOR TO INFUSION IV ONE (08:05)
[2023-07-19] MEDS ORDERED: ACETAMINOPHEN 650MG PO PRIOR TO INFUSION PO ONE (08:05)
[2023-07-19] MEDS ORDERED: NS 1,000 ML IV SCH (08:05)
[2023-07-19] MEDS ORDERED: ONDANSETRON 4MG 2ML VIAL IV ONE ×2 (08:05)
[2023-07-19] MEDS ORDERED: IMMUNE GLOBULIN 10% 20 GM in IV 1 EA IV ONE (08:05)
[2023-07-19] MEDS ORDERED: HYDROCORTISONE 100MG/2ML VIAL IV ONE (08:05)
[2023-07-19] MEDS ORDERED: IMMUNE GLOBULIN 10% 40 GM in IV 1 EA IV ONE (08:05)
== END 2023-07-19 13:50 ==
LOC: M INFU 08:00
PROVIDERS: ATTEND Nurse Practitioner Acute Care
DX: Z94.1 Heart transplant status (principal); Z88.8 Allergy status to other drugs, medicaments and biological substances
CPT/HCPCS: 96365; 96366; 96375; J1200; J1459; J1720; J2405

== ENCOUNTER 2023-08-18 07:50 | Outpatient (CLI) | payer OTHER, MEDICAID ==
[~2023-08-18] VITALS: Ht 162.6 cm; Wt 59.0 kg
[~2023-08-18 07:50] MED LIST changes: +CEFD1CAP9 PO; -CEFD300C42 PO
[2023-08-18] MEDS ORDERED: ACETAMINOPHEN 650MG PO PRIOR TO INFUSION PO ONE (08:05)
[2023-08-18] MEDS ORDERED: HYDROCORTISONE 100MG/2ML VIAL IV ONE (08:05)
[2023-08-18] MEDS ORDERED: IMMUNE GLOBULIN 10% 40 GM in IV 1 EA IV ONE (08:05)
[2023-08-18] MEDS ORDERED: IMMUNE GLOBULIN 10% 20 GM in IV 1 EA IV ONE (08:05)
[2023-08-18] MEDS ORDERED: NS 1,000 ML IV SCH (08:05)
[2023-08-18] MEDS ORDERED: ONDANSETRON 4MG 2ML VIAL IV ONE (08:05)
[2023-08-18] MEDS ORDERED: diphenhydrAMINE 50MG IV PRIOR TO INFUSION IV ONE (08:05)
[2023-08-18 08:07] VITALS: BP 133/86; O2SAT 97
[2023-08-18 09:00] VITALS: BP 128/53; O2SAT 100
[2023-08-18 09:30] VITALS: BP 126/82; O2SAT 98
[2023-08-18 10:00] VITALS: BP 124/88; O2SAT 100
[2023-08-18 12:00] VITALS: BP 117/74; O2SAT 98
[2023-08-18 13:40] VITALS: BP 131/81; O2SAT 97
== END 2023-08-18 13:40 | disposition home or self-care (01) ==
LOC: M INFU 07:50
PROVIDERS: ATTEND Nurse Practitioner Acute Care
DX: Z94.1 Heart transplant status (principal); Z88.8 Allergy status to other drugs, medicaments and biological substances
CPT/HCPCS: 96365; 96366; 96367; J1200; J1459; J1720; J2405

== ENCOUNTER 2023-10-27 09:53 | Outpatient (CLI) | payer OTHER, MEDICAID ==
[2023-10-27] VITALS (7 sets, daily range): BP systolic 129–139; BP diastolic 88–100; O2SAT 95–100
[~2023-10-27] VITALS: Ht 157.5 cm; Wt 63.0 kg
[2023-10-27] MEDS ORDERED: NS 1,000 ML IV SCH (10:00)
[2023-10-27] MEDS: diphenhydrAMINE 50MG IV PRIOR TO INFUSION IV ONE (10:06)
[2023-10-27] MEDS: ACETAMINOPHEN 650MG PO PRIOR TO INFUSION PO ONE (10:06)
[2023-10-27] MEDS: ONDANSETRON 4MG 2ML VIAL IV ONE (10:09)
[2023-10-27] MEDS: HYDROCORTISONE 100MG/2ML VIAL IV ONE (10:26)
[2023-10-27] MEDS: IMMUNE GLOBULIN 10% 40 GM in IV 1 EA IV ONE (10:28)
[2023-10-27] MEDS: IMMUNE GLOBULIN 10% 20 GM in IV 1 EA IV ONE (10:30)
== END 2023-10-27 15:49 ==
LOC: M INFU 09:53
PROVIDERS: ATTEND Nurse Practitioner Acute Care
DX: T86.21 Heart transplant rejection (principal); Z88.8 Allergy status to other drugs, medicaments and biological substances
CPT/HCPCS: 96365; 96366; 96375; J1200; J1459; J1720; J2405

== ENCOUNTER 2023-12-09 07:35 | Outpatient (CLI) | payer OTHER ==
[~2023-12-09] VITALS: Ht 157.5 cm; Wt 63.1 kg
[2023-12-09 07:35] VITALS: BP_SYST 117; BP_SYST 133; BP_DIAS 73; BP_DIAS 83; O2SAT 96; O2SAT 98
[~2023-12-09 07:35] MED LIST changes: +NS 1,000 ML IV SCH; -diphenhydrAMINE 50MG/ML VIAL IV PRN
[2023-12-09] MEDS: diphenhydrAMINE 25MG PO PRIOR TO INFUSION PO ONE (07:45)
[2023-12-09] MEDS: ONDANSETRON 4MG 2ML VIAL IV ONE (07:45)
[2023-12-09] MEDS: HYDROCORTISONE 100MG/2ML VIAL IV ONE (07:45)
[2023-12-09] MEDS: ACETAMINOPHEN 650MG PO PRIOR TO INFUSION PO ONE (07:45)
[2023-12-09] MEDS: IMMUNE GLOBULIN 10% 40 GM in IV 1 EA IV ONE (08:17)
[2023-12-09] MEDS: IMMUNE GLOBULIN 10% 10 GM in IV 1 EA IV ONE (08:18)
[2023-12-09 08:50] VITALS: BP 121/83; O2SAT 99
[2023-12-09] MEDS: diphenhydrAMINE 50MG/ML VIAL IV PRN (09:06)
[2023-12-09 10:30] VITALS: BP 120/77; O2SAT 98
[2023-12-09 11:30] VITALS: BP 126/84; O2SAT 100
[2023-12-09 13:05] VITALS: BP 121/90; O2SAT 100
== END 2023-12-09 13:15 | disposition home or self-care (01) ==
LOC: M INFU 07:35
PROVIDERS: ATTEND Nurse Practitioner Acute Care
DX: T86.21 Heart transplant rejection (principal); Z88.8 Allergy status to other drugs, medicaments and biological substances
CPT/HCPCS: 96365; 96366; J1200; J1459; J1720; J2405

== ENCOUNTER 2023-12-23 08:25 | Outpatient (CLI) | payer OTHER, MEDICAID ==
[~2023-12-23] VITALS: Ht 157.5 cm; Wt 63.5 kg
[2023-12-23 08:25] VITALS: BP 113/78; O2SAT 97
[~2023-12-23 08:25] MED LIST changes: +ALBUTEROL SULFATE 2.5MG/0.5ML INH NEB SOLN INH PRN; +EPINEPHrine INJ 1 MG/ML 1ML AMP IM PRN; +IMMUNE GLOBULIN 10% 40 GM in IV 1 EA IV ONE; +diphenhydrAMINE 50MG/ML VIAL IV PRN; +methylPREDNISolone 125MG 2ML VIAL IV PRN
[2023-12-23] MEDS ORDERED: NS 1,000 ML IV SCH (08:30)
[2023-12-23] MEDS: ONDANSETRON 4MG 2ML VIAL IV ONE (08:37)
[2023-12-23] MEDS: diphenhydrAMINE 25MG PO PRIOR TO INFUSION PO ONE (08:37)
[2023-12-23] MEDS: HYDROCORTISONE 100MG/2ML VIAL IV ONE (08:37)
[2023-12-23] MEDS: ACETAMINOPHEN 650MG PO PRIOR TO INFUSION PO ONE (08:38)
[2023-12-23] MEDS: IMMUNE GLOBULIN 10% 10 GM in IV 1 EA IV ONE (09:00)
[2023-12-23] MEDS: IMMUNE GLOBULIN 10% 40 GM in IV 1 EA IV ONE (09:02)
[2023-12-23 09:30] VITALS: BP 117/80; O2SAT 97
[2023-12-23 10:30] VITALS: BP 104/59; O2SAT 97
[2023-12-23 11:30] VITALS: BP 121/78; O2SAT 99
[2023-12-23 13:30] VITALS: BP 118/82; O2SAT 100
== END 2023-12-23 13:30 ==
LOC: M INFU 08:25
PROVIDERS: ATTEND Nurse Practitioner Acute Care
DX: T86.21 Heart transplant rejection (principal); Z88.8 Allergy status to other drugs, medicaments and biological substances
CPT/HCPCS: 96365; 96366; 96375; J1459; J1720; J2405

== ENCOUNTER → 2023-12-23 | Outpatient (REF) ==
[~2023-12-23] MED LIST changes: -ALBUTEROL SULFATE 2.5MG/0.5ML INH NEB SOLN INH PRN; -EPINEPHrine INJ 1 MG/ML 1ML AMP IM PRN; -NS 1,000 ML IV SCH; -ROSU10TA6 PO; +ROSU10TA61 PO; -methylPREDNISolone 125MG 2ML VIAL IV PRN
== END ==
LOC: M LAB 13:55
PROVIDERS: ATTEND Nurse Practitioner Adult Health
DX: Z02.89 Encounter for other administrative examinations (principal)

== ENCOUNTER → 2023-12-30 | Outpatient (REF) ==
[~2023-12-30] MED LIST changes: -ALBUTEROL SULFATE 2.5MG/0.5ML INH NEB SOLN INH PRN; -EPINEPHrine INJ 1 MG/ML 1ML AMP IM PRN; -IMMUNE GLOBULIN 10% 40 GM in IV 1 EA IV ONE; -diphenhydrAMINE 50MG/ML VIAL IV PRN; -methylPREDNISolone 125MG 2ML VIAL IV PRN
== END ==
LOC: M LAB 16:04
PROVIDERS: ATTEND Nurse Practitioner Adult Health
DX: Z02.1 Encounter for pre-employment examination (principal)

== ENCOUNTER → 2024-03-27 | Outpatient (REF) | LOC: M EMP 15:13 | PROVIDERS: ATTEND Family Medicine | DX: Z11.52 Encounter for screening for COVID-19 (principal) ==

== ENCOUNTER → 2024-05-07 | Outpatient (REF) | LOC: M EMP 08:58 | PROVIDERS: ATTEND Family Medicine | DX: Z11.52 Encounter for screening for COVID-19 (principal) ==

== ENCOUNTER 2024-06-19 11:12 | Emergency (ER) | payer OTHER, MEDICAID ==
[~2024-06-19] VITALS: Ht 157.5 cm; Wt 62.8 kg
[2024-06-19 11:17] VITALS: TEMP 98
[2024-06-19] MEDS ORDERED: FLUC100T3 PO (11:27)
[2024-06-19] MEDS ORDERED: TORS10TA3 PO (11:27)
[2024-06-19] MEDS ORDERED: CETI10CA13 PO (11:27)
[2024-06-19] MEDS ORDERED: LISI20TA33 PO (11:27)
[2024-06-19] MEDS ORDERED: ECOT81TA5 PO (11:27)
[2024-06-19] MEDS ORDERED: FERR325T19 PO (11:27)
[2024-06-19] MEDS ORDERED: VALG450T10 PO (11:27)
[2024-06-19 12:05] LABS: BASO % 0.3 % (0.0-1.0); EOS # 0.1 10^3/uL (0.0-0.5); EOS % 0.7 % (0.0-3.0); HEMATOCRIT 35.5 % (36.0-47.0); HEMOGLOBIN 11.8 g/dl (12.0-15.5); LYMPH # 0.9 10^3/uL (1.5-5.0); LYMPH % 12.5 % (24.0-44.0); MEAN CORPUSCULAR HEMOGLOBIN 28.4 pg (27.0-33.0); MEAN CORPUSCULAR HGB CONC 33.2 g/dl (32.0-36.5); MEAN CORPUSCULAR VOLUME 85.5 fl (80.0-96.0); MONO # 0.6 10^3/uL (0.0-0.8); MONO % 7.5 % (2.0-8.0); NEUTROPHILS # 5.9 10^3/uL (1.5-8.5); NEUTROPHILS % 78.6 % (36.0-66.0); PLATELET COUNT, AUTOMATED 151 10^3/uL (150-450); RED BLOOD COUNT 4.15 10^6/uL (4.00-5.40); WHITE BLOOD COUNT 7.5 10^3/uL (4.0-10.0)
[2024-06-19 12:14] LABS: ERYTHROCYTE SEDIMENTATION RATE 17 mm/hr (0-20)
[2024-06-19 12:33] LABS: LIPASE 29 U/L (12-53)
[2024-06-19 12:35] LABS: CPK CREATINE PHOSPHOKINASE 23 U/L (34-145)
[2024-06-19 12:36] LABS: ALBUMIN 3.6 G/DL (3.2-5.2); ALKALINE PHOSPHATASE 69 U/L (35-104); ALT/SGPT 18 U/L (7.0-40); AST/SGOT 10 U/L (<34); BILIRUBIN,DIRECT 0.1 MG/DL (<0.4); BILIRUBIN,TOTAL 0.5 MG/DL (0.3-1.2); BLOOD UREA NITROGEN 16 MG/DL (9-23); CALCIUM LEVEL 9.3 MG/DL (8.5-10.1); CARBON DIOXIDE LEVEL 25 MMOL/L (20-31); CHLORIDE LEVEL 105 MMOL/L (98-107); CK-MB VALUE MASS < 1.0 NG/ML (<3.6); CREATININE FOR GFR 0.64 MG/DL (0.55-1.30); GLOMERULAR FILTRATION RATE > 60.0 (>60); GLUCOSE, FASTING 93 MG/DL (60-100); MB/CK RELATIVE INDEX 4.34 (< OR =4); SODIUM LEVEL 139 MMOL/L (136-145); TOTAL PROTEIN 7.1 G/DL (5.7-8.2)
[2024-06-19 13:00] VITALS: BP 137/95
[2024-06-19 13:12] LABS: CK-MB VALUE MASS < 1.0 NG/ML (<3.6)
[2024-06-19 13:13] LABS: CPK CREATINE PHOSPHOKINASE 22 U/L (34-145); MB/CK RELATIVE INDEX 4.54 (< OR =4)
[2024-06-19] MEDS: POTASSIUM CHLORIDE 10MEQ SR TABLET PO ONE (13:19)
[2024-06-19] MEDS: MORPHINE 2 MG/ML 1ML VIAL IV PRN (13:20)
[2024-06-19] MEDS ORDERED: ISOVUE-370 76% 100ML VIAL As Ordered ONE (13:38)
[2024-06-19] MEDS: LIDOCAINE 5% (LIDODERM) PATCH TD ONE ×2 (14:07→15:17)
[2024-06-19] MEDS ORDERED: CETI-24 PO (15:00)
[2024-06-19] MEDS ORDERED: TACR1CAP3 PO (15:00)
[2024-06-19] MEDS ORDERED: PRED5TA PO (15:04)
[2024-06-19] MEDS ORDERED: OYST500T91 PO (15:04)
[2024-06-19] MEDS ORDERED: ALBU8.5H INH (15:04)
[2024-06-19] MEDS ORDERED: HOME MED LIST COMPLETE! XX SCH (15:15)
[2024-06-19 15:35] VITALS: O2SAT 98
[2024-06-19] MEDS ORDERED: ZITHTAB PO (16:38)
[2024-06-19] MEDS ORDERED: CEFD300C PO (16:38)
[2024-06-19] MEDS ORDERED: LIDO5DIS41 TD (16:41)
== END 2024-06-19 17:05 | disposition home or self-care (01) ==
LOC: M ED 11:12
DX: R07.9 Chest pain, unspecified (principal); I10 Essential (primary) hypertension; Z94.1 Heart transplant status; Z79.899 Other long term (current) drug therapy; Z88.8 Allergy status to other drugs, medicaments and biological substances
CPT/HCPCS: 71045; 71275; 80048; 80076; 80195; 80197; 82550; 82553; 83690; 84484; 85025; 85652; 86140; 87486; 87581; 87633; 87798; 93005; 93041; 94760; 96374; 96376; 99284; Q9967

== ENCOUNTER → 2024-12-19 | Outpatient (CLI) | payer MEDICAID ==
[~2024-12-19] MED LIST changes: +ALBU8.5H INH; +CEFD300C PO; +CETI10CA13 PO; -CYCL5TAB PO; +CYCL5TAB4 PO; +ECOT81TA5 PO; +FERR325T19 PO; +FLUC100T3 PO; +LIDO5DIS41 TD; +LISI20TA33 PO; +OYST500T91 PO; +PRED-1142 PO; -PRED1TABL PO; +PRED5TA PO; +TORS10TA3 PO; +ZITHTAB PO
== END ==
LOC: M RAD 12:44
PROVIDERS: ATTEND Physician Assistant
DX: M79.672 Pain in left foot (principal); M79.675 Pain in left toe(s)

== ENCOUNTER → 2024-12-19 | Outpatient (REF) | payer MEDICAID ==
[2024-12-19 18:57] LABS: APPEARANCE, URINE HAZY (CLEAR); BACTERIA, URINE AUTO NEGATIVE (NEGATIVE); BILIRUBIN, URINE AUTO NEGATIVE (NEGATIVE); BLOOD, URINE BLOOD NEGATIVE (NEGATIVE); COLOR, URINE YELLOW (YELLOW); GLUCOSE, URINE (UA) AUTO NEGATIVE (NEGATIVE); KETONE, URINE AUTO NEGATIVE (NEGATIVE); LEUKOCYTE ESTERASE, URINE AUTO TRACE (NEGATIVE); MUCUS, URINE SMALL (NEGATIVE); NITRITE, URINE AUTO NEGATIVE (NEGATIVE); PROTEIN, URINE AUTO NEGATIVE (NEGATIVE); RBC, URINE AUTO 2 /HPF (0-3); SPECIFIC GRAVITY URINE AUTO 1.026 (1.002-1.035); SQUAMOUS EPITHELIAL CELL UR AU 0 /HPF (0-6); UROBILINOGEN, URINE AUTO 0.2 mg/dL (0.0-2.0); WBC, URINE AUTO 5 /HPF (0-3)
== END ==
LOC: M LAB REF 17:18
PROVIDERS: ATTEND Physician Assistant
DX: N39.0 Urinary tract infection, site not specified (principal)

== ENCOUNTER 2025-03-11 12:41 | Emergency (ER) | payer MEDICAID, OTHER ==
[~2025-03-11] VITALS: Ht 157.5 cm; Wt 60.0 kg
[~2025-03-11 12:41] MED LIST changes: +LIDO1ADH93 TD; -LIDO5DIS41 TD; -PRAV40TA2 PO; +PRAV40TA85 PO
[2025-03-11 14:02] LABS: BASO # 0.0 10^3/uL (0.0-0.2); BASO % 0.2 % (0.0-1.0); EOS # 0.0 10^3/uL (0.0-0.5); EOS % 0.1 % (0.0-3.0); LYMPH # 1.4 10^3/uL (1.5-5.0); LYMPH % 8.6 % (24.0-44.0); MONO # 0.6 10^3/uL (0.0-0.8); MONO % 3.5 % (2.0-8.0); NEUTROPHILS # 14.5 10^3/uL (1.5-8.5); NEUTROPHILS % 87.3 % (36.0-66.0); PLATELET COUNT, AUTOMATED 291 10^3/uL (150-450)
[2025-03-11] MEDS: KETOROLAC 30 MG/ML 1 ML VIAL IV ONE (14:14)
[2025-03-11] MEDS: ONDANSETRON 4MG 2ML VIAL IV ONE (14:15)
[2025-03-11 14:31] LABS: ALT/SGPT 12 U/L (7.0-40); AST/SGOT 20 U/L (<34)
[2025-03-11] MEDS ORDERED: IRON15CH PO (15:46)
[2025-03-11] MEDS ORDERED: LIDO1PAD TOP (15:46)
[2025-03-11] MEDS ORDERED: HOME MED LIST COMPLETE! XX SCH (15:50)
[2025-03-11 16:32] LABS: APPEARANCE, URINE CLOUDY (CLEAR); BACTERIA, URINE AUTO NEGATIVE (NEGATIVE); BILIRUBIN, URINE AUTO 1+ (NEGATIVE); BLOOD, URINE BLOOD NEGATIVE (NEGATIVE); GLUCOSE, URINE (UA) AUTO NEGATIVE (NEGATIVE); GRANULAR CAST, URINE AUTO 5 /LPF; KETONE, URINE AUTO TRACE mg/dL (NEGATIVE); LEUKOCYTE ESTERASE, URINE AUTO NEGATIVE (NEGATIVE); MUCUS, URINE MODERATE (NEGATIVE); NITRITE, URINE AUTO NEGATIVE (NEGATIVE); PROTEIN, URINE AUTO 2+ mg/dL (NEGATIVE); RBC, URINE AUTO 4 /HPF (0-3); SPECIFIC GRAVITY URINE AUTO 1.023 (1.002-1.035); SQUAMOUS EPITHELIAL CELL UR AU 29 /HPF (0-6); UROBILINOGEN, URINE AUTO 2.0 mg/dL (0.0-2.0); WBC, URINE AUTO 19 /HPF (0-3)
[2025-03-11] MEDS ORDERED: PROC10TA5 PO (18:49)
[2025-03-11] MEDS ORDERED: HYDR-3713 PO ×2 (18:49→19:09)
[2025-03-11 19:24] VITALS: BP 95/65; TEMP 98.3; O2SAT 98
== END 2025-03-11 19:29 | disposition home or self-care (01) ==
LOC: EDBD 12:41 → M ED 12:41
DX: N83.291 Other ovarian cyst, right side (principal); R00.0 Tachycardia, unspecified; I45.81 Long QT syndrome; I10 Essential (primary) hypertension; E78.5 Hyperlipidemia, unspecified; Z88.8 Allergy status to other drugs, medicaments and biological substances; Z79.1 Long term (current) use of non-steroidal anti-inflammatories (NSAID); Z79.51 Long term (current) use of inhaled steroids; Z79.52 Long term (current) use of systemic steroids; Z79.899 Other long term (current) drug therapy
CPT/HCPCS: 36415; 74176; 76830; 76856; 80047; 80076; 81001; 83605; 83690; 84702; 85025; 87040; 87086; 93005; 93976; 96374; 96375; 99285; J1885; J2405

== ENCOUNTER 2025-04-05 09:03 | Emergency (ER) | payer OTHER ==
[~2025-04-05] VITALS: Ht 157.5 cm; Wt 61.4 kg
[~2025-04-05 09:03] MED LIST changes: +IRON15CH PO; +LIDO1PAD TOP; +PROC10TA5 PO
[2025-04-05 09:31] LABS: BASO # 0.0 10^3/uL (0.0-0.2); BASO % 0.2 % (0.0-1.0); EOS # 0.0 10^3/uL (0.0-0.5); EOS % 0.1 % (0.0-3.0); LYMPH # 1.1 10^3/uL (1.5-5.0); LYMPH % 12.2 % (24.0-44.0); MONO # 0.3 10^3/uL (0.0-0.8); MONO % 3.2 % (2.0-8.0); NEUTROPHILS # 7.5 10^3/uL (1.5-8.5); NEUTROPHILS % 84.0 % (36.0-66.0); PLATELET COUNT, AUTOMATED 217 10^3/uL (150-450)
[2025-04-05] MEDS: NS (Normal Saline) 0.9% 1,000 ML IV ONE (09:42)
[2025-04-05 10:01] LABS: ALT/SGPT 26 U/L (7.0-40); AST/SGOT 32 U/L (<34); CALCIUM LEVEL 8.9 MG/DL (8.5-10.1); CARBON DIOXIDE LEVEL 25 MMOL/L (20-31); CHLORIDE LEVEL 102 MMOL/L (98-107); CREATININE FOR GFR 1.11 MG/DL (0.55-1.30); GLOMERULAR FILTRATION RATE 69.0 (>60); POTASSIUM SERUM 3.8 MMOL/L (3.5-5.1); SODIUM LEVEL 141 MMOL/L (136-145)
[2025-04-05] MEDS: ONDANSETRON 4MG 2ML VIAL IV ONE (12:24)
[2025-04-05] MEDS: MORPHINE 2 MG/ML 1 ML VIAL IV PRN (12:25)
[2025-04-05] MEDS ORDERED: PERC5TAB12 PO (14:41)
[2025-04-05 15:01] VITALS: BP 104/74; TEMP 97.1; O2SAT 98
== END 2025-04-05 15:25 | disposition home or self-care (01) ==
LOC: EDBD 09:03 → M ED 09:03
DX: R10.9 Unspecified abdominal pain (principal); R11.10 Vomiting, unspecified; N83.209 Unspecified ovarian cyst, unspecified side; E61.1 Iron deficiency; Z94.1 Heart transplant status; Z79.82 Long term (current) use of aspirin; Z79.899 Other long term (current) drug therapy; Z88.8 Allergy status to other drugs, medicaments and biological substances
CPT/HCPCS: 71045; 74177; 80047; 80048; 80076; 83605; 83690; 84145; 85025; 87040; 96374; 96375; 99285; J2405

== ENCOUNTER → 2025-05-20 | Outpatient (REF) | payer OTHER ==
[~2025-05-20] MED LIST changes: +PERC5TAB12 PO; -ROSU10TA61 PO; +ROSU10TA90 PO
[2025-05-22 14:43] LABS: HPV APTIMA Not Detected (Not Detected)
== END ==
LOC: M SFHCWAGY 10:00
PROVIDERS: ATTEND Nurse Practitioner Family
DX: Z12.4 Encounter for screening for malignant neoplasm of cervix (principal); R87.613 High grade squamous intraepithelial lesion on cytologic smear of cervix (HGSIL)

== ENCOUNTER → 2025-06-19 | Outpatient (REF) | payer OTHER | LOC: M LAB REF 12:49 | PROVIDERS: ATTEND Pediatrics | DX: R50.9 Fever, unspecified (principal) ==

== ENCOUNTER 2025-08-09 07:40 | Outpatient (CLI) | payer OTHER ==
[2025-08-09] VITALS (7 sets, daily range): BP systolic 117–135; BP diastolic 74–92; O2SAT 97–100
[~2025-08-09] VITALS: Ht 157.5 cm; Wt 60.9 kg
[~2025-08-09 07:40] MED LIST changes: +ALBUTEROL SULFATE 2.5 MG/0.5 ML INH CONCENTRATE NEB SOLN INH PRN; +EPINEPHrine INJ 1 MG/ML 1ML AMP IM PRN; +NS (Normal Saline) 0.9% 1,000 ML IV SCH; +diphenhydrAMINE 50 MG/ML VIAL IV PRN
[2025-08-09] MEDS: diphenhydrAMINE 50MG IV PRIOR TO INFUSION IV ONE (07:58)
[2025-08-09] MEDS: ACETAMINOPHEN 650MG PO PRIOR TO INFUSION PO ONE (07:59)
[2025-08-09] MEDS: IMMUNE GLOBULIN 10% 40 GM in IV 1 EA IV ONE (08:38)
[2025-08-09] MEDS: IMMUNE GLOBULIN 10% 10 GM in IV 1 EA IV ONE (08:39)
[2025-08-09 12:09] LABS: ALT/SGPT < 9 U/L (7.0-40); AST/SGOT < 8 U/L (<34); CALCIUM LEVEL 8.6 MG/DL (8.5-10.1); CARBON DIOXIDE LEVEL 22 MMOL/L (20-31); CHLORIDE LEVEL 109 MMOL/L (98-107); CREATININE FOR GFR 0.80 MG/DL (0.55-1.30); GLOMERULAR FILTRATION RATE > 90.0 (>60); POTASSIUM SERUM 4.6 MMOL/L (3.5-5.1); SODIUM LEVEL 139 MMOL/L (136-145)
== END 2025-08-09 13:15 | disposition home or self-care (01) ==
LOC: M INFU 07:40
PROVIDERS: ATTEND Nurse Practitioner Acute Care
DX: T86.21 Heart transplant rejection (principal); Z88.8 Allergy status to other drugs, medicaments and biological substances
CPT/HCPCS: 80053; 96365; 96366; 96375; J1200; J1459; J2919